=== PATIENT | female | born 1975 ===

== ENCOUNTER 2020-08-12 08:02 | Outpatient (REF) | payer MEDICAID, SELFPAY ==
[2020-08-12 16:05] LABS: CT PCR NOT DETECTED (Not Detect.); NG PCR NOT DETECTED (Not Detect.)
[2020-08-13 11:16] LABS: BV Int Neg Control Negative (Negative); BV Int Pos Control Positive (Positive)
[2020-08-19 18:17] LABS: HPV mRNA E6/E7 rflx Not Detected (Not Detected)
== END 2020-08-12 08:03 | disposition home or self-care (01) ==
LOC: HO.LAB 08:02
PROVIDERS: Visit Provider Advanced Practice Midwife
DX: Z01.419 Encounter for gynecological examination (general) (routine) without abnormal findings (principal); Z11.3 Encounter for screening for infections with a predominantly sexual mode of transmission; N39.41 Urge incontinence; T83.32XA Displacement of intrauterine contraceptive device, initial encounter; Z20.2 Contact with and (suspected) exposure to infections with a predominantly sexual mode of transmission; E66.9 Obesity, unspecified; L73.9 Follicular disorder, unspecified; Z87.42 Personal history of other diseases of the female genital tract
CPT/HCPCS: 87086; 87480; 87491; 87510; 87591; 87624; 87625; 87660; 88142

== ENCOUNTER 2020-10-12 16:12 | Outpatient (REF) | payer MEDICAID, SELFPAY | END 2020-10-12 16:13 | disposition home or self-care (01) | LOC: HO.LAB 16:12 | PROVIDERS: Visit Provider Internal Medicine | DX: Z20.828 Contact with and (suspected) exposure to other viral communicable diseases (principal) | CPT/HCPCS: C9803; U0003 ==

== ENCOUNTER 2021-01-14 16:00 | Outpatient (REF) | payer MEDICAID, SELFPAY ==
--- NOTE | ~2021-01-14 | US_ITS ---
EXAMINATION: US PELVIC COMPLETE US TRANSVAGINAL CLINICAL INFORMATION: Displaced IUD. COMPARISON: None TECHNIQUE: Transabdominal and transvaginal ultrasound of the pelvis was performed. FINDINGS: The uterus is anteverted and anteflexed measuring 9.0 cm in length, 4.4 cm in AP and 4.7 cm in transverse dimension. Endometrial thickness is 0.5 cm. The uterus is homogeneous echotexture without focal lesion. An IUD is in the correct position within the endometrial canal. There are small nabothian cysts seen in the cervix. The right ovary measures 2.5 x 2.0 x 2.0 cm and volume 5.2 mL. It appears unremarkable. Left ovary measures 3.9 x 1.6 x 2.9 cm and volume 9.5 mL. It appears unremarkable. There is no free fluid in the cul-de-sac. US/US transvaginal IMPRESSION: IUD is in correct position within the endometrial canal. The ovaries are unremarkable. Small nabothian cysts are seen in the cervix.
--- NOTE | ~2021-01-14 | US_ITS ---
EXAMINATION: US PELVIC COMPLETE US TRANSVAGINAL CLINICAL INFORMATION: Displaced IUD. COMPARISON: None TECHNIQUE: Transabdominal and transvaginal ultrasound of the pelvis was performed. FINDINGS: The uterus is anteverted and anteflexed measuring 9.0 cm in length, 4.4 cm in AP and 4.7 cm in transverse dimension. Endometrial thickness is 0.5 cm. The uterus is homogeneous echotexture without focal lesion. An IUD is in the correct position within the endometrial canal. There are small nabothian cysts seen in the cervix. The right ovary measures 2.5 x 2.0 x 2.0 cm and volume 5.2 mL. It appears unremarkable. Left ovary measures 3.9 x 1.6 x 2.9 cm and volume 9.5 mL. It appears unremarkable. There is no free fluid in the cul-de-sac. US/US pelvic complete IMPRESSION: IUD is in correct position within the endometrial canal. The ovaries are unremarkable. Small nabothian cysts are seen in the cervix.
== END 2021-01-14 16:01 | disposition home or self-care (01) ==
LOC: HO.US 16:00
PROVIDERS: Visit Provider Advanced Practice Midwife
DX: T83.32XA Displacement of intrauterine contraceptive device, initial encounter (principal)
CPT/HCPCS: 76830; 76856

== ENCOUNTER 2021-06-30 13:05 | Outpatient (REF) | payer MEDICAID, SELFPAY ==
[2021-07-01 02:04] LABS: CT PCR NOT DETECTED (Not Detect.); NG PCR NOT DETECTED (Not Detect.)
[2021-07-01 10:10] LABS: BV Int Neg Control Negative (Negative); BV Int Pos Control Positive (Positive)
[2021-07-07 22:03] LABS: HPV mRNA E6/E7 rflx Not Detected (Not Detected)
== END 2021-06-30 13:06 | disposition home or self-care (01) ==
LOC: HO.LAB 13:05
PROVIDERS: Visit Provider Advanced Practice Midwife
DX: Z01.411 Encounter for gynecological examination (general) (routine) with abnormal findings (principal); Z11.51 Encounter for screening for human papillomavirus (HPV); N39.41 Urge incontinence; N88.2 Stricture and stenosis of cervix uteri; E66.9 Obesity, unspecified; Z68.34 Body mass index [BMI] 34.0-34.9, adult; Z87.42 Personal history of other diseases of the female genital tract
CPT/HCPCS: 87480; 87491; 87510; 87591; 87624; 87660; 88142

== ENCOUNTER 2021-10-22 21:37 | Emergency (ER) | payer MEDICAID, SELFPAY ==
[2021-10-22 21:59] VITALS: BP 152/92; PULSE 83; RESP 16; TEMP 36.6; O2SAT 96; BMI 34.4
[2021-10-23 03:00] VITALS: BP 169/98; PULSE 85; RESP 17; TEMP 37.2; O2SAT 100
--- NOTE | 2021-10-23 03:56 | ED_ITS ---
HPI - General Adult General Chief complaint: General Medical Stated complaint: Vaginal cyst Time Seen by Provider: 10/23/21 03:35 Source: patient Mode of arrival: ambulatory History of Present Illness HPI narrative: 46-year-old female presents with complaints of ?a swollen area near her vaginal opening? that has been increasing in size and pain for 3 days. She denies any associated fever, chills, nausea, vomiting. Related Data Home Medications Medication Instructions Recorded Confirmed levonorgestrel 20 mcg/24 hours (7 INTRAUTERINE 08/12/20 06/30/21 yrs) 52 mg intrauterine device (Mirena) metformin 500 mg tablet,extended 1,000 mg PO DAILY tab 08/12/20 06/30/21 release 24hr Previous Rx's Medication Instructions Recorded metronidazole 0.75 % vaginal gel 1 appful VAGINAL BEDTIME 5 Days 07/02/21 (Metrogel Vaginal) #70 g Allergies Allergy/AdvReac Type Severity Reaction Status Date / Time No Known Allergies Allergy Unknown Verified 06/30/21 13:18 Review of Systems Review of Systems: Pertinent positives and negatives as stated in HPI 10 point review of systems is otherwise negative. PMFSH Past Medical History Source: nursing notes reviewed Medical History Depression Diabetes mellitus History of abnormal cervical Pap smear Obesity (BMI 30-39.9) Urge incontinence Surgical History History of loop electrical excision procedure (LEEP) Family History Family History Mother HIV (human immunodeficiency virus infection) Maternal Grandmother Diabetes mellitus Social History Social History Alcohol intake: never Advance Directives: No Advance Directives Information Provided: No Patient : No Gender identity: Female Physical Exam Vital Signs: Vital Signs: Last Vital Signs Temp 98.9 F 10/23/21 03:00 Pulse 85 10/23/21 03:00 Resp 17 10/23/21 03:00 BP 169/98 H 10/23/21 03:00 Pulse Ox 100 10/23/21 03:00 BMI result Body Mass Index 34.4 VITAL SIGNS: Reviewed. GENERAL: Well developed, well nourished, in no acute distress. HEAD: Normocephalic/atraumatic EYES: PERRLA, EOMI LUNGS: Normal breath sounds. No adventitious sounds or accessory muscle use. SpO2<100> CARDIOVASCULAR: Regular rate and rhythm without noted murmurs ABDOMEN: Soft, non-tender, non-distended with bowel sounds. : Noted swelling and fluctuance at left Bartholin cyst NEUROLOGIC: Alert and oriented x 4. Strength and sensation to light touch were grossly intact x 4. Course Course Course Narrative: 46-year-old female with history and clinical presentation consistent with Bartholin's cyst, underwent incision and drainage with placement of Zheng ring and instructions to continue with Sitz baths until follow-up with her primary care provider. Procedures Abscess I/D Site: bartholin's gland Side (if applicable): left Local Anesthetic: lidocaine 2% Amount of anesthesia used (mL): 1 Technique: incised with blade Amount of fluid expressed (mL): 30 Sent for culture/gram staining?: No Irrigation: Yes Packing used?: Word catheter (Zheng ring) Complications: pain Discharge Plan Discharge Clinical Impression: Bartholin cyst Patient Disposition: Home, Self-Care Instructions: Bartholin Cyst (ED), Sitz Bath (DC) Additional Instructions: 1. Perform Sitz baths at least twice daily, when you do this rotate the ring back and forth. You should continue to do this until you follow-up with your primary care provider or experimental technician. 2. Follow-up with your primary care provider or experimental technician in the next 2-3 days. Return to the ER for worsening symptoms. Prescriptions: No Action metronidazole [Metrogel Vaginal] 0.75 % gel 1 appful vaginal BEDTIME 5 Days Qty: 70 RF: 0 Mirena 20 mcg/24 hours (5 yrs) 52 mg intrauterine device intrauterine RF: 0 metformin 500 mg tablet extended release 24hr 1,000 mg PO DAILY RF: 0 Referrals: Wil Palmer MD [Primary Care Provider] - 2 days (Had Zheng ring placed for left Bartholin cyst, will need to have removed.)
[2021-10-23] MEDS: Lidocaine HCl 2 % 20 ML VIAL 10 ML SUBCUT (04:29)
== END 2021-10-23 04:49 | disposition home or self-care (01) ==
PROVIDERS: Emergency Provider Student in an Organized Health Care Education/Training Program; PCP Internal Medicine
DX: N75.0 Cyst of Bartholin's gland (principal); E11.9 Type 2 diabetes mellitus without complications
CPT/HCPCS: 56420; 99283; 99284

== ENCOUNTER → 2021-11-08 12:52 | Outpatient (BNVA) | payer MEDICAID, SELFPAY | PROVIDERS: PCP Internal Medicine; Visit Provider Obstetrics & Gynecology | DX: N75.0 Cyst of Bartholin's gland (principal) | CPT/HCPCS: 99212 ==

== ENCOUNTER 2021-11-11 13:03 | Outpatient (REF) | payer MEDICAID, SELFPAY ==
--- NOTE | ~2021-11-11 | MM_ITS ---
EXAMINATION: MM SCREENING DIGITAL BREAST TOMOSYNTHESIS, BILATERAL CLINICAL INFORMATION: Screening. Asymptomatic. The lifetime risk of breast cancer based on the Tyrer-Cuzick Model is 5.4%. COMPARISON: Mammography: May 30, 2019 and studies dating back to August 07, 2013 TECHNIQUE: Digital breast tomosynthesis is performed in both the craniocaudal and mediolateral oblique views along with computer-aided detection (CAD). Synthesized 2D images are generated from the tomosynthesis. FINDINGS: There are scattered areas of fibroglandular density (ACR BI-RADS breast composition Category b). There are no significant masses, abnormal calcifications, or other abnormalities. MM/MM tomosynthesis screening BI IMPRESSION: There are no significant changes from prior study. ASSESSMENT: BI-RADS 1: Negative RECOMMENDATION: Routine annual mammography screening. This patient's information was entered into a reminder system with a target due date for their next mammogram.
== END 2021-11-11 13:04 | disposition home or self-care (01) ==
LOC: HO.MAMMO 13:03
PROVIDERS: PCP Internal Medicine; Visit Provider Internal Medicine
DX: Z12.31 Encounter for screening mammogram for malignant neoplasm of breast (principal)
CPT/HCPCS: 77063; 77067

== ENCOUNTER → 2021-11-24 14:38 | Outpatient (BNVA) | payer MEDICAID, SELFPAY | PROVIDERS: PCP Internal Medicine; Visit Provider Obstetrics & Gynecology ==

== ENCOUNTER 2022-12-19 14:01 | Outpatient (REF) | payer MEDICAID, SELFPAY ==
--- NOTE | ~2022-12-19 | MM_ITS ---
EXAMINATION: MM SCREENING DIGITAL BREAST TOMOSYNTHESIS, BILATERAL CLINICAL INFORMATION: Screening. Asymptomatic. The lifetime risk of breast cancer based on the Tyrer-Cuzick Model is 8%. COMPARISON: Mammography: 11/11/2021, 05/30/2019, 10/18/2017; outside mammography 08/07/2013 ([facility]). TECHNIQUE: Digital breast tomosynthesis is performed in both the craniocaudal and mediolateral oblique views along with computer-aided detection (CAD). Synthesized 2D images are generated from the tomosynthesis. Additional exaggerated right CC view is provided. FINDINGS: There are scattered areas of fibroglandular density (ACR BI-RADS breast composition Category b). There is parenchymal asymmetry with increased attenuation posterior outer left breast, suspect summation artifact. There is admixture of normal fibroglandular and fatty attenuation in this area on MLO view. Patient will be recalled to exclude an occult developing density. The remainder of the bilateral breasts is appears similar to prior studies. No significant mass or architectural abnormality. No abnormal calcifications. The axilla are unremarkable. Skin contours are smooth. MM/MM tomosynthesis screening BI IMPRESSION: Left: -Increased parenchymal asymmetry posterior outer left breast, possibly summation artifact. Right: -No mammographic evidence of malignancy. ASSESSMENT: BI-RADS 0: Incomplete - Need Additional Imaging Evaluation RECOMMENDATION: 1. Additional views left breast (spot exaggerated CC, rolled CC). 2. Targeted ultrasound if warranted after review of the additional views. 3. Radiology department staff will contact the patient for additional imaging. This patient's information was entered into a reminder system with a target due date for their next mammogram.
== END 2022-12-19 14:02 | disposition home or self-care (01) ==
LOC: HO.MAMMO 14:01
PROVIDERS: PCP Internal Medicine; Visit Provider Internal Medicine
DX: Z12.31 Encounter for screening mammogram for malignant neoplasm of breast (principal)
CPT/HCPCS: 77063; 77067

== ENCOUNTER 2023-01-19 14:47 | Outpatient (REF) | payer MEDICAID, SELFPAY ==
--- NOTE | ~2023-01-19 | MM_ITS ---
EXAMINATION: MM DIAGNOSTIC DIGITAL BREAST TOMOSYNTHESIS, LEFT CLINICAL INFORMATION: Recall from screening for question increased parenchymal asymmetry posterior outer left breast, possibly summation artifact. TC score 8%. COMPARISON: Prior mammography exams, most recent 12/19/2022. TECHNIQUE: Digital breast tomosynthesis is performed. 2D images are generated from the tomosynthesis. The following views are obtained: Spot exaggerated CC, rolled CC x2. FINDINGS: There are scattered areas of fibroglandular density (ACR BI-RADS breast composition Category b). The additional views show splaying of the fibroglandular tissue without underlying mass, architectural abnormality, or developing density from prior studies. Results are discussed with the patient at time of visit. MM/MM tomosynthesis added views L IMPRESSION: Additional views show no significant changes from prior exams. ASSESSMENT: BI-RADS 2: Benign RECOMMENDATION: Routine annual mammography screening. This patient's information was entered into a reminder system with a target due date for their next mammogram.
== END 2023-01-19 14:48 | disposition home or self-care (01) ==
LOC: HO.MAMMO 14:47
PROVIDERS: PCP Internal Medicine; Visit Provider Internal Medicine
DX: N64.89 Other specified disorders of breast (principal)
CPT/HCPCS: 77061; 77065

== ENCOUNTER 2023-03-07 14:33 | Outpatient (REF) | payer MEDICAID, SELFPAY ==
[2023-03-08 05:53] LABS: CT PCR NOT DETECTED (Not Detect.); NG PCR NOT DETECTED (Not Detect.)
[2023-03-08 12:05] LABS: BV Int Neg Control Negative (Negative); BV Int Pos Control Positive (Positive)
[2023-03-10 06:43] LABS: HPV mRNA E6/E7 rflx Not Detected (Not Detected)
== END 2023-03-07 14:34 | disposition home or self-care (01) ==
LOC: HO.LNP 14:33
PROVIDERS: PCP Internal Medicine; Visit Provider Advanced Practice Midwife
DX: Z01.419 Encounter for gynecological examination (general) (routine) without abnormal findings (principal); T83.32XA Displacement of intrauterine contraceptive device, initial encounter; E66.9 Obesity, unspecified; N88.2 Stricture and stenosis of cervix uteri; Z87.42 Personal history of other diseases of the female genital tract; Z20.2 Contact with and (suspected) exposure to infections with a predominantly sexual mode of transmission
CPT/HCPCS: 0353U; 87480; 87510; 87624; 87660; 88142

== ENCOUNTER 2023-05-01 12:06 | Outpatient (REF) | payer MEDICAID, SELFPAY ==
[2023-05-01 15:04] LABS: Estimated Average Glucose 94 mg/dL; Hemoglobin A1c % 4.9 %
[2023-05-01 15:36] LABS: Creatinine Urine 317.61 mg/dL; Microalbum/Creatinine Ratio Ur 13.2 ug/mg cr
[2023-05-04 19:54] LABS: HCV Log PCR <1.18 NOT DETECTED Log IU/mL (NOT DETECTED); HepC Viral Load <15 NOT DETECTED IU/mL (NOT DETECTED)
== END 2023-05-01 12:07 | disposition home or self-care (01) ==
LOC: HO.CHCLDS 12:06
PROVIDERS: Visit Provider Registered Nurse
DX: E11.65 Type 2 diabetes mellitus with hyperglycemia (principal)
CPT/HCPCS: 36415; 82043; 83036; 87522

== ENCOUNTER 2023-05-15 14:08 | Outpatient (AMB) | payer MEDICAID, SELFPAY ==
--- NOTE | 2023-05-15 14:13 | MHC.OFFVIS ---
Intake Vital Signs 05/15/23 14:19 Height 5 ft 7 in Weight 163 lb BMI 25.5 BP 112/74 Intake Visit Reasons: IUD Replacement per Keely Lockstitch Lining Maker Required: No Information Interpreted: non-clinical & clinical Ophthalmology Surgical Technician: Ophthalmology Surgical Technician Present (Ella WAREKadeem) Accompanied by: Self / Same As Patient Allergies No Known Allergies Allergy (Unknown, Verified 05/15/23 14:21) Is last menstrual period known: No HPI HPI Comments History of Present Illness Details Presenting for IUD removal and insertion. Referred from Keely Balderrama CNM because IUD string was not seen on pelvic exam. Patient states that she has an IUD insertion more than 10 years ago, no records available [facility] Medical History Depression Diabetes mellitus History of abnormal cervical Pap smear Obesity (BMI 30-39.9) Urge incontinence Surgical History H/O gastric bypass History of loop electrical excision procedure (LEEP) Family History Mother HIV (human immunodeficiency virus infection) Maternal Grandmother Diabetes mellitus Social History Alcohol intake: never Gender identity: Female Female Reproductive History Menstrual Age of Menarche: 15 Review of Systems Const All systems reviewed & are unremarkable except as noted in HPI and below Physical Exam General: Yes no CVA tenderness External Female Exam: normal external appearance and normal appearance of the urethra Speculum Exam - Vagina: normal appearance of the vagina, normal palpation, no lesions and no masses Speculum Exam - Cervix: normal appearance of the cervix, normal palpation, no lesions, no masses, nontender and Other cervical findings present (IUD string not seen) Bimanual exam- vagina & uterus: normal bimanual exam, normal palpation, uterine size normal, normal palpation, uterine shape normal, No Cervical tenderness present and non-tender Bimanual Exam- Adnexa, other: normal adnexae Back/Spine/Pelvis Back: no CVA tenderness Assessment & Plan Assessment & Plan (1) IUD strings lost: Code(s): T83.32XA - Displacement of intrauterine contraceptive device, initial encounter Plan: Urine test in the office was negative. GC/chlamydia taken. Attempted to remove IUD, was unsuccessful because IUD string was not seen Peter older pelvic ultrasound to confirm that the IUD is in utero, then schedule hysteroscopic IUD removal and Mirena IUD insertion. All questions answered, the patient verbalized understanding Orders: Orders US pelvic and transvaginal Today T83.32XA - Displacement of intrauterine contraceptive device, initial encounter Coding Level of Care Code Est Pt Level 3 (79532) Diagnoses IUD strings lost T83.32XA
[2023-05-15 14:19] VITALS: BP 112/74; BMI 25.5
== END 2023-05-15 14:52 | disposition home or self-care (01) ==
LOC: HO.HWS 14:08
PROVIDERS: PCP Internal Medicine; Visit Provider Obstetrics & Gynecology
DX: T83.32XA Displacement of intrauterine contraceptive device, initial encounter (principal)
CPT/HCPCS: 99213

== ENCOUNTER 2023-05-15 14:08 | Outpatient (REF) | payer MEDICAID, SELFPAY ==
[2023-05-16 05:40] LABS: CT PCR NOT DETECTED (Not Detect.); NG PCR NOT DETECTED (Not Detect.)
== END 2023-05-15 14:09 | disposition home or self-care (01) ==
LOC: HO.LNP 14:08
PROVIDERS: PCP Internal Medicine; Visit Provider Obstetrics & Gynecology
DX: T83.32XA Displacement of intrauterine contraceptive device, initial encounter (principal)
CPT/HCPCS: 0353U; 99212

== ENCOUNTER 2023-05-19 12:49 | Outpatient (REF) | payer MEDICAID, SELFPAY ==
--- NOTE | ~2023-05-19 | US_ITS ---
EXAMINATION: US PELVIS COMPLETE US PELVIS ENDOVAGINAL CLINICAL INFORMATION: Intrauterine device COMPARISON: Ultrasound pelvis from 01/14/2021 TECHNIQUE: Transabdominal and transvaginal images of the pelvis were obtained. FINDINGS: UTERUS: Anteverted. Normal size and contour, measuring 9.2 x 4.5 x 6.0 cm (cervix to fundus x AP x transverse). IUD in place. Nabothian cysts are noted. RIGHT OVARY: Normal size and echogenicity measuring 3.0 x 1.5 x 2.8 cm, volume 6.6 mL. Simple appearing cystic focus in the right ovary measuring 1.8 x 1.0 x 1.5 cm, which does not require follow-up. Prominence of the paraovarian vasculature. LEFT OVARY: Normal size and echogenicity measuring 2.8 x 1.6 x 1.7 cm. Prominence of the paraovarian vasculature. FREE FLUID: No pelvic free fluid. US/US pelvic and transvaginal IMPRESSION: 1. IUD in place. 2. Simple appearing cystic focus in the right ovary measuring 1.8 x 1.0 x 1.5 cm, which does not require follow-up. 3. Prominence of the bilateral paraovarian vasculature, nonspecific though may reflect elements of pelvic congestion syndrome in the appropriate clinical setting. 4. Nabothian cysts are noted.
== END 2023-05-19 12:50 | disposition home or self-care (01) ==
LOC: HO.US 12:49
PROVIDERS: PCP Internal Medicine; Visit Provider Obstetrics & Gynecology
DX: T83.32XA Displacement of intrauterine contraceptive device, initial encounter (principal)
CPT/HCPCS: 76830; 76856

== ENCOUNTER 2023-06-05 13:47 | Outpatient (REF) | payer MEDICAID, SELFPAY ==
[2023-06-05 18:52] LABS: CT PCR NOT DETECTED (Not Detect.); NG PCR NOT DETECTED (Not Detect.)
[2023-06-06 10:06] LABS: BV Int Neg Control Negative (Negative); BV Int Pos Control Positive (Positive)
== END 2023-06-05 13:48 | disposition home or self-care (01) ==
LOC: HO.LNP 13:47
PROVIDERS: PCP Internal Medicine; Visit Provider Obstetrics & Gynecology
DX: T83.32XD Displacement of intrauterine contraceptive device, subsequent encounter (principal); B37.31 Acute candidiasis of vulva and vagina
CPT/HCPCS: 0353U; 87480; 87510; 87660; 99212

== ENCOUNTER 2023-06-05 13:47 | Outpatient (AMB) | payer MEDICAID, SELFPAY ==
[2023-06-05 13:51] VITALS: BP 120/66; BMI 25.5
--- NOTE | 2023-06-05 13:51 | A.OFFVIS_ITS ---
Intake Vital Signs 06/05/23 13:51 Height 5 ft 7 in Weight 163 lb BMI 25.5 BP 120/66 Intake Visit Reasons: ultrasound follow up/pre op hyst Youth Specialist Required: No Information Interpreted: non-clinical & clinical Food Safety Scientist: Food Safety Scientist Present (Ella) Allergies No Known Allergies Allergy (Unknown, Verified 06/05/23 13:54) Is last menstrual period known: No (Mirena) Post menopausal: No Patient : No Do you need a note to return to daycare/school/sports/work: Yes (for surgery on monday) HPI HPI Comments History of Present Illness Details Presenting for ultrasound follow-up . Complaining of vulvovaginal itching few days duration. Pelvic ultrasound done 2 weeks ago showed the following: IMPRESSION: 1.? IUD in place. 2.? Simple appearing cystic focus in the right ovary measuring 1.8 x 1.0 x 1.5 cm, which does not require follow-up. 3.? Prominence of the bilateral paraovarian vasculature, nonspecific though may reflect elements of pelvic congestion syndrome in the appropriate clinical setting. 4.? Nabothian cysts are noted. [facility] Medical History Depression Diabetes mellitus History of abnormal cervical Pap smear Obesity (BMI 30-39.9) Urge incontinence Surgical History H/O gastric bypass History of loop electrical excision procedure (LEEP) Family History Mother HIV (human immunodeficiency virus infection) Maternal Grandmother Diabetes mellitus Social History Alcohol intake: never Gender identity: Female Female Reproductive History Menstrual Age of Menarche: 15 Date of last menstrual period: 08/13/20 control method: progestin IUCD Total pregnancies: 2 Full term: 2 Date of last pap smear: 03/08/23 (negative) Review of Systems Card Reports as per HPI and Reports no additional complaints Resp Reports as per HPI and Reports no additional complaints GI Reports as per HPI and Reports no additional complaints Reports as per HPI Physical Exam Vital Signs: Last Vital Signs BP 120/66 06/05/23 13:51 BMI result Body Mass Index 25.5 Const General: cooperative, healthy appearing and comfortable Chest Chest palpation & inspection: normal inspection of the chest and normal palpation of entire chest wall Breast/axilla inspection: normal inspection of the breasts and normal inspection of the axillae Breast/axilla palpation: normal palpation of the breasts, normal palpation of the axillae and no axillary lymphadenopathy Resp Effort & Inspection: normal respiratory effort Auscultation: clear to auscultation bilaterally Percussion: percussion normal Cardio Palpation: normal PMI Rate: regular rate Rhythm: regular rhythm Heart sounds: no murmurs and no rubs Peripheral pulses: Peripheral pulses 2+ throughout GI Inspection: Yes normal to inspection Palpation (GI): Soft to palpation, nontender, no guarding, not rigid and No hepatosplenomegaly present Percussion: Yes normal to percussion Auscultation: normal bowel sounds Rectal Exam - Female: deferred Assessment & Plan Assessment & Plan (1) IUD strings lost: Code(s): T83.32XA - Displacement of intrauterine contraceptive device, initial encounter Plan: Discussed with the patient the finding on ultrasound showing a IUD in utero recommended hysteroscopic IUD removal. Will proceed with hysteroscopic IUD removal and IUD insertion under anesthesia. Discussed with the patient the procedure , all benefits and risks including but not limited to inability to complete the procedure , bleeding, infection, possible need for blood transfusion with all its risk ( HIV,syphilis, Hepatitis, anaphylaxis shock, others..), injury to bladder, rectum, possible need for laparoscopy/laparotomy or hysterectomy. In addition, the following possible complications were discussed with the patient: Intrauterine , Ectopic , Sepsis, Pelvic Infection, Irregular Bleeding and Amenorrhea, Perforation, Expulsion, Ovarian Cysts, Breast Cancer, The following adverse effects were discussed with the patient: alteration of menstrual bleeding pattern, including: unscheduled uterine bleeding decreased uterine bleeding increased scheduled uterine bleeding female genital tract bleeding ,amenorrhea , genital discharge , vulvovaginitis , breast pain , benign ovarian cyst and associated complications , dysmenorrhea , Gastrointestinal disorders abdominal/pelvic pain, headache/migraine , back pain , acne , depression Alternative options were discussed with the patient including but not limited: control pills, patch, NuvaRing, Depo-medroxyprogesterone acetate, Nexplanon, copper IUD, sterilization, vasectomy, others The patient verbalized understanding and signed the consent. Instructions given the patient to schedule a 2 week postoperative appointment (2) Candidal vulvovaginitis: Code(s): B37.31 - Acute candidiasis of vulva and vagina Plan: GC/CT, Bacterial Vaginosis panel taken, Terazol 0.8% q.h.s. for 3 days was sent to the patient's pharmacy. The patient was instructed to call if symptoms don't improve in 48 hours. Orders: Orders Bacterial Vaginosis Panel Today Z20.2 - Contact with and (suspected) exposure to infections with a predominantly sexual mode of transmission CT NG by PCR Today Z20.2 - Contact with and (suspected) exposure to infections with a predominantly sexual mode of transmission Medications: New terconazole 0.8% 1 appful vaginal BEDTIME 3 days 20 grams 0RF Coding Level of Care Code Est Pt Level 3 (33953) Diagnoses IUD strings lost T83.32XA Candidal vulvovaginitis B37.31
== END 2023-06-05 14:56 | disposition home or self-care (01) ==
LOC: HO.HWS 13:47
PROVIDERS: PCP Internal Medicine; Visit Provider Obstetrics & Gynecology
DX: T83.32XA Displacement of intrauterine contraceptive device, initial encounter (principal); B37.31 Acute candidiasis of vulva and vagina
CPT/HCPCS: 99213

== ENCOUNTER → 2023-06-23 11:01 | Outpatient (BNV) | payer MEDICAID, SELFPAY | PROVIDERS: PCP Internal Medicine; Visit Provider Obstetrics & Gynecology | DX: T83.32XA Displacement of intrauterine contraceptive device, initial encounter (principal); Z30.430 Encounter for insertion of intrauterine contraceptive device | CPT/HCPCS: 58300; 58562 ==

== ENCOUNTER → 2023-06-23 11:01 | Outpatient (BNV) | payer MEDICAID, SELFPAY | PROVIDERS: PCP Internal Medicine; Visit Provider Internal Medicine Cardiovascular Disease | DX: I49.5 Sick sinus syndrome (principal) | CPT/HCPCS: 99222; 99233 ==

== ENCOUNTER 2023-06-23 16:00 | Observation (INO) | payer MEDICAID, SELFPAY ==
[2023-06-21 10:47] VITALS: BMI 25.5
--- NOTE | 2023-06-22 08:55 | HO.ANESPROP2 ---
Documented by User: Chyna Castellanos NP 06/22/23 08:56 HPI - Anesthesia Eval Consult details Narrative: 48yo F for Hysteroscopy IUD device Removal and insertion PMFSH Active Problems Active Problems: All Active Problems (Updated 06/05/23 @ 14:14 by Tani Cordova MD) Candidal vulvovaginitis (Acute) Presence of 52 mg levonorgestrel-releasing intrauterine device (IUD) (Acute) Well woman exam with routine gynecological exam (Acute) Bartholin's gland cyst (Acute) Stenosis of cervix (Acute) Folliculitis (Acute) Obesity (BMI 30-39.9) (Acute) Urge incontinence (Acute) History of abnormal cervical Pap smear (Acute) Well woman exam with routine gynecological exam (Acute) Potential exposure to STD (Acute) IUD strings lost (Acute) Past Medical History Medical History (Updated 06/23/23 @ 11:13 by Jeana Francois RN) Obesity (BMI 30-39.9) History of abnormal cervical Pap smear Urge incontinence Depression Diabetes mellitus Family History Family History Mother HIV (human immunodeficiency virus infection) Maternal Grandmother Diabetes mellitus Surgical History Surgical History (Updated 06/23/23 @ 11:13 by Jeana Francois RN) H/O gastric bypass History of loop electrical excision procedure (LEEP) Social History Social History Alcohol intake: never Patient Tobacco Use Status: Never used Tobacco Use of substances other than those prescribed or required for medical reasons: Yes Substance Use Frequency: Daily Are you DNR?: No Advance Directives: No Advance Directives Information Provided: Yes Gender identity: Female Meds Allergies Allergy/AdvReac Type Severity Reaction Status Date / Time No Known Allergies Allergy Unknown Verified 06/23/23 11:14 Home Medications Medication Instructions Recorded Confirmed Last Taken Type levonorgestrel 21 mcg/24 hours (8 intrauterine 08/12/20 03/07/23 Unknown History yrs) 52 mg intrauterine device (Mirena) Exam Exam Date and Time: June 22, 2023 0855 Height,Weight and Vital Signs: Height 5 ft 7 in Weight 73.936 kg Assessment and Plan Assessment Anesthesia Assessment: Chart Reviewed Documented by User: Sharifa Monsivais MD 06/23/23 12:08 PMF Past Medical History Medical History (Updated 06/23/23 @ 11:13 by Jeana Francois RN) Obesity (BMI 30-39.9) History of abnormal cervical Pap smear Urge incontinence Depression Diabetes mellitus Family History Family History Mother HIV (human immunodeficiency virus infection) Maternal Grandmother Diabetes mellitus Family history of problems with anesthesia: No Surgical History Surgical History (Updated 06/23/23 @ 11:13 by Jeana Francois RN) H/O gastric bypass History of loop electrical excision procedure (LEEP) History of Problems with Anesthesia: No Social History Social History Alcohol intake: never Patient Tobacco Use Status: Never used Tobacco Use of substances other than those prescribed or required for medical reasons: Yes Substance Use Frequency: Daily Are you DNR?: No Advance Directives: No Advance Directives Information Provided: Yes Gender identity: Female Meds Allergies Allergy/AdvReac Type Severity Reaction Status Date / Time No Known Allergies Allergy Unknown Verified 06/23/23 11:14 Home Medications Medication Instructions Recorded Confirmed Last Taken Type levonorgestrel 21 mcg/24 hours (8 intrauterine 08/12/20 03/07/23 Unknown History yrs) 52 mg intrauterine device (Mirena) Exam Airway Mallampati Class: II TM Dist: >3cm Neck ROM: Full Heart: rrr Lungs: cta Assessment and Plan Assessment Anesthesia Assessment: Anesthesia Plan Discussed and Smoking Cess. Discussed Final Anesthetic Review Family History of Problems with Anesthesia: No History of Problems with Anesthesia: No NPO: Yes ASA Class: II Final Preanesthetic Review: No Changes in Pt Med Stat, Meds/Allgs Chart Reviewed, Consent Obtained/Reviewed and Anes Risks/Benef Reviewed Patient Risk: Intermediate Procedure Risk: Low Anesthetic Plan Anesthetic Plan: GA Disposition: Standard PACU (marked sinus bradycardia noted, pot use rhrice ot more times daily )
[2023-06-23] VITALS (15 sets, daily range): BP systolic 118–151; BP diastolic 50–85; PULSE 40–74; RESP 15–18; TEMP 36.2–37.1; O2SAT 95–100; BMI 25.5
--- NOTE | 2023-06-23 | ECG_ITS ---
Test Reason : MD order Blood Pressure : / mmHG Vent. Rate : 063 BPM Atrial Rate : 063 BPM P-R Int : 204 ms QRS Dur : 110 ms QT Int : 468 ms P-R-T Axes : 093 010 034 degrees QTc Int : 478 ms Sinus rhythm with Premature atrial complexes with Aberrant conduction Possible Left atrial enlargement Nonspecific ST and T wave abnormality Prolonged QT Abnormal ECG When compared with ECG of 23-JUN-2023 11:39, Aberrant conduction is now Present Sinus rhythm is no longer with 2nd degree A-V block QT has lengthened Referred By: Robel Bryan Electronically Signed By:
[2023-06-23 11:24] LABS: UPreg QC Valid YES; Urine Pregnancy NEGATIVE (NEGATIVE)
--- NOTE | 2023-06-23 11:30 | ECG_ITS ---
Test Reason : Irregular heart beat Blood Pressure : / mmHG Vent. Rate : 043 BPM Atrial Rate : 043 BPM P-R Int : 174 ms QRS Dur : 086 ms QT Int : 500 ms P-R-T Axes : 075 010 033 degrees QTc Int : 422 ms Sinus rhythm with 2nd degree A-V block Nonspecific T wave abnormality Abnormal ECG No previous ECGs available Referred By: Gaby Evans Electronically Signed By:MORENA MCDONOUGH
--- NOTE | 2023-06-23 11:35 | PC.NURSE ---
pt heart rate dropping into 30's occasionally, mostly in 40's. ryhtym strip showing dropped p waves. anesthesia made aware and ekg ordered
--- NOTE | 2023-06-23 11:56 | MHC.SHP ---
Pre-Procedural Eval Section A Date of Service: 06/23/23 The patient is an INPATIENT: No Changes since office visit: No Cold of Flu in the past 2 weeks, No New Medical Problems, No Changes in Medication and No Patient answered all questions The History & Physical has been completed within 30 days and I have reviewed it.: Yes Section B Chief Complaint: Displacement of intrauterine contraceptive device, Allergies: Allergies Allergy/AdvReac Type Severity Reaction Status Date / Time No Known Allergies Allergy Unknown Verified 06/23/23 11:14 Plan Diagnosis/Plan: Unchanged I have reviewed the history and physical and performed a pertinent physical examination on my patient. No changes have occurred unless specified. Time Spent With Patient Time: Total time managing care of this patient today ____ minutes.
[2023-06-23] MEDS: Lactated Ringers 1,000 ML 100 ML IVCONT (12:22)
--- NOTE | 2023-06-23 12:23 | PC.NURSE ---
after ekg done and much discussion between several anesthesia mds and dr núñez, ok'd to proceed. no sx. pt doesn't feel palpitations, dizziness, chest pains or any other symptoms.
--- NOTE | 2023-06-23 12:50 | P.BOP_ITS ---
Brief Operative Note Date of Service: 08/28/20 Pre-op diagnosis: IUD complication, lost string Post-op diagnosis: same (IUD in utero) Procedure: Hysteroscopic IUD removal and Mirena IUD insertion Surgeon: Tani Cordova MD Anesthesia: local (Paracervical block) Was an Crm Campaign Manager used for this Procedure?: No Estimated blood loss (mL): 0 Pathology: other (None) Condition: stable Disposition: PACU
--- NOTE | 2023-06-23 12:51 | W.PM.OPN ---
Operative Note Operative Note Date of Service: 06/23/23 Narrative: Preop Diagnosis: IUD complication, lost string and requesting Mirena IUD insertion Operation: Diagnostic Hysteroscopic IUD removal and Mirena IUD insertion Post Op Diagnosis: same. IUD and string in utero QBL: Minimal Anesthesia: MAC Surgeon: Tani Cordova MD Bus And Sys Integration Senior Manager: None Complication: None Pathology: None Procedure: The patient was put in the dorsal lithotomy position, scrubbed, and draped in the usual manner. A sterile speculum was inserted in the patient's vagina. The anterior lip of the cervix was grasped with a single tooth tenaculum. The cervix was dilated up to 5 mm, then the scope was inserted in the patient's uterus. Inspection revealed IUD & its string in utero. A hysteroscopic grasper was introduced through the operative channel, the string grasped and IUD pulled out of the uterine cavity with no complications. A sound was advanced afterwards through the external and internal os until it reached the fundus of the uterus, the depth was 9 cm. The sound was then withdrawn. The IUD was loaded in a sterile manner and advanced into position. The string was visualized and cut to 3 cm. Tenaculum site hemostatic. All instruments removed from vagina. Patient tolerated the procedure well. NO complications were noted. At the end of the procedure, all instruments were taken out of the patient uterine and vaginal cavity. The single tooth tenaculum was removed and homeostasis was assured using pressure and months pessary. The patient tolerated the procedure well and was transferred to the PACU in a stable condition.
--- NOTE | 2023-06-23 14:45 | P.CONCA_ITS ---
History of Present Illness History of Present Illness Date of Service: 06/23/23 Requesting physician: Tani Cordova Consult reason: other (Bradycardia) Chief complaint: Displacement of intrauterine contraceptive device, Narrative: I was consulted to see Tamanna because of noted bradycardia preoperatively. 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 Patient in general good physical shape came as an outpatient for replacement of her IUD. Preoperative was noted to have bradycardia with normal sinus rhythm followed by a junctional escape beat. Patient has no symptoms during these times. Patient then underwent the procedure under paracervical block and mild sedation. Postprocedure remained to have similar rhythm with sinus bradycardia with escape junctional beats. Patient has remained hemodynamically stable and remained asymptomatic. Patient as outpatient has no exertional symptoms. She also denies any symptoms of lightheadedness or syncope. She has no symptoms of palpitations. Patient does not recall having any tick bites or history of Lyme disease. No recent lab work. Patient currently does not have sleep apnea. Review of Systems Review of Systems: Yes all other systems are reviewed and are negative PMF Past Medical History Medical History (Updated 06/23/23 @ 14:49 by Marv Vincent MD) Obesity (BMI 30-39.9) History of abnormal cervical Pap smear Urge incontinence Depression Diabetes mellitus Family History Family History Mother HIV (human immunodeficiency virus infection) Maternal Grandmother Diabetes mellitus Surgical History Surgical History (Updated 06/23/23 @ 11:13 by Jeana Francois RN) H/O gastric bypass History of loop electrical excision procedure (LEEP) Social History Social History Alcohol intake: never Patient Tobacco Use Status: Never used Tobacco Use of substances other than those prescribed or required for medical reasons: Yes Substance Use Frequency: Daily Are you DNR?: No Advance Directives: No Advance Directives Information Provided: Yes Gender identity: Female Meds Allergies Allergy/AdvReac Type Severity Reaction Status Date / Time No Known Allergies Allergy Unknown Verified 06/23/23 11:14 Active Medications: Current Medications Fentanyl (Fentanyl Citrate/Pf 100 Mcg/2 Ml Vial) 25 mcg IVPUSH Q5M PRN; Protocol PRN Reason: Pain, Moderate(Pain Scale 4-6) Lactated Ringer's (Lr) 1,000 mls @ 100 mls/hr IVCONT .Q10H [facility] Last Admin: 06/23/23 12:22 Dose: 100 mls/hr Ondansetron HCl (Ondansetron Hcl 4 Mg/2 Ml Vial) 4 mg IVPUSH ONCE PRN PRN Reason: Nausea and Vomiting Oxycodone HCl (Oxycodone Hcl Immed Release 5 Mg Tablet) 5 mg PO ONCE PRN PRN Reason: Pain, Severe (Pain Scale 7-10) Home Medications Medication Instructions Recorded Confirmed Last Taken Type levonorgestrel 21 mcg/24 hours (8 intrauterine 08/12/20 03/07/23 Unknown History yrs) 52 mg intrauterine device (Mirena) Physical Exam Vital Signs: Vital Signs: Last Vital Signs Temp 97.2 F 06/23/23 12:55 Pulse 61 06/23/23 14:05 Resp 16 06/23/23 14:05 BP 132/75 06/23/23 14:05 Pulse Ox 99 06/23/23 14:05 O2 Del Method Room Air 06/23/23 14:05 O2 Flow Rate 2 06/23/23 13:35 BMI result Body Mass Index 25.5 Const: General: cooperative, comfortable, no acute distress, alert and awake Nutritional Appearance: average body habitus Orientation/consciousness: patient oriented x3 Limitations: no limitations HEENT: Head: Yes normocephalic and Yes atraumatic Neck: Neck: Yes trachea midline, Yes supple and Yes no JVD Resp: Effort & Inspection: normal respiratory effort Auscultation: clear to auscultation bilaterally Cardio: Jugular venous distension: no JVD Palpation: normal PMI Rate: regular rate Rhythm: abnormal rhythm other (Occasional skipped beats) Heart sounds: S1 normal heart sound present, S2 normal heart sound present, no click, no gallops, no murmurs and no rubs GI: Auscultation: normal bowel sounds Skin: General skin exam: no rashes or lesions noted Neuro: General: patient oriented x3 and no focal motor deficits Extrem: General: Yes no clubbing, cyanosis or edema Objective Labs and Meds Lab results: Laboratory Results - last 24 hr 06/23/23 11:10 Urine Test NEGATIVE EKG shows normal sinus rhythm followed by junctional escape beat Assessment and Plan (1) Sinus node dysfunction: Status: Acute Patient intermittent escape junctional beat and also noted to have intermittent long sinus beats could suggest sinoatrial shahla Wenckebach. Overall findings are suggestive sinus node dysfunction which is highly unusual at her age group. She has no obvious outpatient clinical symptoms and no current symptoms with slow heart rate. At this time I would suggest her to be admitted for overnight observation. Will like to evaluate for Lyme disease as well as TSH for hypothyroidism. Also obtain routine lab work. Will watch her overnight and possibly pursue treadmill stress test although this might have to be done as outpatient. Is at concerning slowing of heart rate of pauses may require dual- chamber pacemaker. However would like not to [place] to her dual-chamber pacemaker at this point in time. This was discussed with the patient and she understands and agrees. Will continue to follow with you Time Spent With Patient Time: Total time managing care of this patient today ____ minutes. Procedures Date of Service Date of Service: 06/23/23
--- NOTE | 2023-06-23 16:17 | PM.IMHP ---
History of Present Illness Date of Service: 06/23/23 Attending physician on admission: Pat Chen Chief Complaint: Bradycardia Pt is a 48-year-old female with a PMH significant for?vct-eetkrpn-chnpimhjz diabetes type 2, s/p gastric bypass surgery 9 months ago, and depression who presents to the hospital for outpatient procedure in the OR to replace her IUD. During preop evaluation patient was found to have bradycardia ranging from 35-40 BPM with significant sinus arrhythmia. Patient underwent IUD replacement with cervical block and p.o. Versed. Pt states she had a syncopal episode in February of this year while at work. Patient was dizzy and when she awoke found herself on the floor. Has not had a repeat episode since then. However, patient has been experiencing occasional dizziness with bending over and straightening back up for the past 3-4 months. Otherwise patient has not had any acute medical complaints. Denies chest pain/pressure, palpitations. Denies lightheadedness no fever, chills, nausea, vomiting, abdominal pain. Denies shortness of breath. Of note, patient has lost 100 lb in the past 9 months since undergoing gastric bypass surgery. ? EKG from earlier today showed sinus bradycardia of 43 B p.m. with marked sinus arrhythmia. Cardiology was consulted and suggested checking labs and admitting patient to telemetry for overnight monitoring. Review of Systems Review of Systems: Patient largely asymptomatic Occasional dizziness with bending over and standing up x3 months Syncopal episode February 2023 while at work Otherwise has no acute medical complaints at this time Denies chest pain/pressure, palpitations No SOB Denies fever, chills, nausea, vomiting, abdominal pain [facility] Medical History Obesity (BMI 30-39.9) History of abnormal cervical Pap smear Urge incontinence Depression Diabetes mellitus Family History Mother HIV (human immunodeficiency virus infection) Maternal Grandmother Diabetes mellitus Surgical History H/O gastric bypass History of loop electrical excision procedure (LEEP) Social History Alcohol intake: never Patient Tobacco Use Status: Never used Tobacco Smoked in Last 30 Days: No Patient Interested in Nicotine Replacement: No Patient Given Instructions on How to Stop Smoking: No Second Hand Smoke Exposure: No Use of substances other than those prescribed or required for medical reasons: Yes Substance Use Frequency: Daily Are you DNR?: No Advance Directives: No Advance Directives Information Provided: Yes service: No Gender identity: Female Meds Allergies Allergy/AdvReac Type Severity Reaction Status Date / Time No Known Allergies Allergy Unknown Verified 06/23/23 11:14 Active Medications: Current Medications Acetaminophen (Acetaminophen 325 Mg Tablet) 650 mg PO Q6H PRN PRN Reason: Pain, Mild (Pain Scale 1-3) Docusate Sodium (Docusate Sodium 100 Mg Capsule) 100 mg PO DAILY PRN PRN Reason: Constipation Fentanyl (Fentanyl Citrate/Pf 100 Mcg/2 Ml Vial) 25 mcg IVPUSH Q5M PRN; Protocol PRN Reason: Pain, Moderate(Pain Scale 4-6) Lactated Ringer's (Lr) 1,000 mls @ 100 mls/hr IVCONT .Q10H REPLACED BY [facility] Last Admin: 06/23/23 12:22 Dose: 100 mls/hr Ondansetron HCl (Ondansetron Hcl 4 Mg/2 Ml Vial) 4 mg IVPUSH ONCE PRN PRN Reason: Nausea and Vomiting Oxycodone HCl (Oxycodone Hcl Immed Release 5 Mg Tablet) 5 mg PO ONCE PRN PRN Reason: Pain, Severe (Pain Scale 7-10) Sodium Chloride (0.9 % Sodium Chloride Flush 3 Ml Syringe) 3 ml IVFLUSH QSHIFT REPLACED BY [facility] Home Medications Medication Instructions Recorded Confirmed Last Taken Type cholecalciferol (vitamin D3) 25 25 mcg PO DAILY 06/24/23 06/24/23 06/23/23 History mcg (1,000 unit) tablet (Vitamin D3) multivitamin 1 tab PO DAILY 06/24/23 06/24/23 06/23/23 History Physical Exam Vital Signs and Narrative: Vital Signs: Last Vital Signs Temp 98.4 F 06/23/23 14:45 Pulse 74 06/23/23 15:55 Resp 16 06/23/23 15:55 BP 138/82 06/23/23 15:55 Pulse Ox 99 06/23/23 15:55 O2 Del Method Room Air 06/23/23 15:55 O2 Flow Rate 2 06/23/23 13:35 BMI result Body Mass Index 25.5 General: AOx3, no acute distress Resp: CTA bilaterally CVS: S1, S2, slow. Regular rhythm with occasional long pauses between beats GI: +BS, NT, no distention Skin: No rash Neuro: Cranial nerves II-XII grossly intact bilaterally. Motor grossly intact bilaterally Extremities: No edema Psych: Appropriate affect Results Labs 06/23/23 16:57 06/23/23 16:57 Labs: Laboratory Results - last 24 hr 06/23/23 11:10 Urine Test NEGATIVE Assessment and Plan (1) Bradycardia: Status: Acute Plan t is a 48-year-old female with a PMH significant for?tbo-yylpvoj-huzuktonh diabetes type 2, s/p gastric bypass surgery 9 months ago, and depression who presents to the hospital for outpatient procedure in the OR to replace her IUD. The patient be admitted to the hospital under observation on telemetry for further evaluation and monitoring of bradycardia and sinus arrhythmia. Bradycardia EKG showed sinus bradycardia of 43 BPM with marked sinus arrhythmia Patient largely asymptomatic: Denies chest pain/pressure, palpitations; has been experiencing occasional dizziness with bending over and straightening up x3 months; 1 syncopal episode in February while patient was at work Will place pacer pads on patient Will have atropine at bedside Will check labs: CBC, CMP, Mag, Lyme, TSH Will make NPO after midnight in anticipation of possible pacemaker placement tomorrow Cardiology consult Monitor on telemetry None insulin-dependent diabetes type 2 Patient no longer on diabetic medication since gastric bypass surgery Will still put on diabetic diet Full Code Attending:?Dr. Chen DVT Prophylaxis: Pneumatic boots in anticipation of possible surgical procedure tomorrow Patient will be admitted to the hospital under observation on telemetry for evaluation and close monitoring of bradycardia and marked sinus arrhythmia. Patient may have surgical procedure tomorrow. Time Spent With Patient Time: Total time managing care of this patient today ____ minutes. Quality Stroke Does the patient have a stroke diagnosis?: No VTE Prior VTE?: No VTE Risk Level:: Medical - moderate - high VTE Device Contraindication: N/A - Device Ordered VTE Drug Contraindication: Treatment Not Indicated
--- NOTE | 2023-06-23 17:01 | PC.NURSE ---
STAT LABS DRAWN
[2023-06-23 17:08] LABS: Mean Corpuscular HGB Conc 33.3 g/dl (31.0-35.0); Mean Corpuscular Hemoglobin 29.4 pg (27.0-33.0); Mean Corpuscular Volume 88.2 fL (80.0-98.0); Mean Platelet Volume 12.5 fL (9.4-12.3); Platelet Count 193 X10*3/uL (160-400); Red Blood Count 4.42 X10*6/uL (4.20-5.50); Red Cell Distribution Width 12.7 % (11.0-16.0)
[2023-06-23 17:23] LABS: WBC ABN SCTR FOR CBC 1; White Blood Count 8.1 X10*3/uL (4.8-10.8)
[2023-06-23 17:36] LABS: Magnesium 1.8 mg/dL (1.6-2.6)
[2023-06-23 17:43] LABS: Alanine Aminotransferase 20 U/L (0-31); Albumin Level 3.7 g/dL (3.5-5.0); Alkaline Phosphatase 65 U/L (39-117); Anion Gap 8 (12-20); Aspartate Amino Transferase 22 U/L (5-31); Bilirubin Total 0.5 mg/dL (0.0-1.0); Blood Urea Nitrogen 9 mg/dL (9-16); Calcium 8.8 mg/dL (8.4-10.2); Carbon Dioxide 26 mmol/L (22-29); Chloride 110 mmol/L (96-108); Creatinine Clr Calc Pharmacy 106.9; Estimated Glomerular Filt Rate > 60; Glucose Random 131 mg/dL (60-115); Potassium 3.4 mmol/L (3.3-5.1); Sodium 141 mmol/L (135-145); Total Protein 6.4 g/dL (6.5-8.0)
[2023-06-23 17:44] LABS: Glucose, Whole Blood 138 mg/dL (60-115)
[2023-06-23 18:00] LABS: TSH reflex Free T4 0.18 uIU/mL (0.32-4.0)
[2023-06-23 18:52] LABS: Free T4 (Free Thyroxine) 0.91 ng/dL (0.71-1.85)
[2023-06-24 03:21] VITALS: BP 153/74; PULSE 60; RESP 18; TEMP 36.6; O2SAT 95
[2023-06-24 07:17] LABS: Glucose, Whole Blood 87 mg/dL (60-115)
[2023-06-24 07:25] VITALS: BP 150/91; PULSE 60; RESP 20; TEMP 36.5; O2SAT 98
[2023-06-24] MEDS: Lactated Ringers 1,000 ML 100 ML IVCONT (08:12)
--- NOTE | 2023-06-24 09:39 | PHA.MEDREC ---
Pharmacy Consult ? Medication Reconciliation Pharmacy has completed the medication reconciliation. Patient states they do not take any prescription medications. Only takes vitamins, per patient.
--- NOTE | 2023-06-24 11:00 | MHC.CM.PN ---
HOMA 06/24. Pt admitted with displacement of intrauterine contraceptive device. Pt live at home with significant other and children, is currently employed and independent/self-care. D/C plan is to return home self-care. Pts significant other will transport her home. PCP: Wil Thompson
[2023-06-24 11:04] LABS: Glucose, Whole Blood 93 mg/dL (60-115)
--- NOTE | 2023-06-24 11:05 | MHC.CM.PN ---
HOMA 06/24. Pt admitted with displacement of intrauterine contraceptive device. Pt lives at home with significant other and children, is currently employed and independent/self-care. D/C plan is to return home self-care. Pts significant other will transport her home. Offered HCP, pt declined at this time. PCP: Wil Thompson
[2023-06-24 11:18] VITALS: BP 158/85; PULSE 57; RESP 18; TEMP 36.9; O2SAT 97
--- NOTE | 2023-06-24 12:23 | PM.PNCARD ---
Subjective Subjective Date of Service: 06/24/23 Principal diagnosis: Sinus node dysfunction Interval history: Patient continues to have no symptoms. Overnight had pause of 4.5 seconds. Patient during that time was asymptomatic as well. Continues to have junctional escape. No other arrhythmias noted. Blood pressure is stable. Review of Systems Constitutional: Reports no additional constitutional complaints Physical Exam Vital Signs: Last Vital Signs Temp 98.5 F 06/24/23 11:18 Pulse 57 06/24/23 11:18 Resp 18 06/24/23 11:18 BP 158/85 H 06/24/23 11:18 Pulse Ox 97 06/24/23 11:18 O2 Del Method Room Air 06/24/23 11:18 O2 Flow Rate 2 06/23/23 13:35 BMI result Body Mass Index 25.5 Const General: cooperative, comfortable, no acute distress, alert and awake Nutritional Appearance: average body habitus Limitations: no limitations Neck Neck: Yes trachea midline, Yes supple and Yes no JVD Resp Effort & Inspection: normal respiratory effort Auscultation: clear to auscultation bilaterally Cardio Jugular venous distension: no JVD Palpation: normal PMI Rate: regular rate Rhythm: abnormal rhythm other (Occasional skipped beats) Heart sounds: S1 normal heart sound present, S2 normal heart sound present, no click, no gallops, no murmurs and no rubs Extrem General: Yes no clubbing, cyanosis or edema Objective Labs and Meds 06/23/23 16:57 06/23/23 16:57 Lab results: Laboratory Results - last 24 hr 06/23/23 06/23/23 06/24/23 16:57 17:39 07:10 WBC 8.1 RBC 4.42 Hgb 13.0 Hct 39.0 MCV 88.2 MCH 29.4 MCHC 33.3 RDW 12.7 Plt Count 193 MPV 12.5 H Absolute Nucleated RBC 0.000 Nucleated RBC % (auto) 0.0 Sodium 141 Potassium 3.4 Chloride 110 H Carbon Dioxide 26 Anion Gap 8 L BUN 9 Creatinine 0.69 Estim Creat Clear Calc 106.9 Estimated GFR > 60 POC Glucose 138 H 87 Random Glucose 131 H Calcium 8.8 Magnesium 1.8 Total Bilirubin 0.5 AST 22 ALT 20 Alkaline Phosphatase 65 Total Protein 6.4 L Albumin 3.7 TSH 0.18 L Free T4 0.91 06/24/23 10:57 WBC RBC Hgb Hct MCV MCH MCHC RDW Plt Count MPV Absolute Nucleated RBC Nucleated RBC % (auto) Sodium Potassium Chloride Carbon Dioxide Anion Gap BUN Creatinine Estim Creat Clear Calc Estimated GFR POC Glucose 93 Random Glucose Calcium Magnesium Total Bilirubin AST ALT Alkaline Phosphatase Total Protein Albumin TSH Free T4 Progress Note: A&P Assessment and plan (1) Sinus node dysfunction: Status: Acute Assessment and Plan: Patient definitely has sinus node dysfunction but has no symptoms whatsoever including with the pause of 4.5 seconds. Discussed the case with electrophysiology about placement of pacemaker. They feel that at this point time pacemaker is not indicated as patient is completely asymptomatic but they would like close outpatient monitoring. Will schedule for event monitor as well as a treadmill stress test to evaluate for chronotropic competence. Patient advised to call with any new symptoms of lightheadedness or syncope which may then indicate a pacemaker placement that point time. Cause for sinus node dysfunction is unclear at this point in time given that she has no medications. Obviously this does not appear to be vagal in nature. We waiting for blood work from Lyme disease. Thyroid function are within normal limits. Patient can be discharged home and will set up for event monitor on Monday. Thank you for allowing me to partake in the care Time Spent With Patient Time: Total time managing care of this patient today ____ minutes. Progress Note: Quality Stroke Does the patient have a stroke diagnosis?: No Procedures Date of Service Date of Service: 06/24/23
--- NOTE | 2023-06-24 12:46 | PM.DS ---
DS: Providers Provider Date of Service: 06/24/23 Date of admission: 06/23/23 16:00 Date of discharge: 06/24/23 Primary care physician: Wil Thompson MD Consults: 06/23/23 12:54 Consult to Cardiology Routine Consulting Provider: [facility] [place] Cardiovascular Services Reason for consultation: Abnormal EKG, bradycardia DS: Diagnosis Discharge Diagnosis (1) Bradycardia: Status: Acute DS: Summary Hospital Course Hospital Course: 48-year-old female with a PMH significant for?[id number] diabetes type 2, s/p gastric bypass surgery 9 months ago, and depression who presents to the hospital for outpatient procedure in the OR to replace her IUD. The patient be admitted to the hospital under observation on telemetry for further evaluation and monitoring of bradycardia and sinus arrhythmia. Hospital course: Patient came to the hospital because of needed placement of IUD, status post IUD placement-subsequently patient was found to have bradycardic, admitted for observation and monitored on telemetry, seen by Cardiology: sinus node dysfunction but has no symptoms whatsoever including with the pause of 4.5 seconds. Cardiology discussed with painter and decorator: recomeded that at this point time pacemaker is not indicated as patient is completely asymptomatic but they would like close outpatient monitoring. advised to call or go to nearest ED if she with any new symptoms of lightheadedness or syncope which may then indicate a pacemaker placement that point time.Cause for sinus node dysfunction is unclear at this point in time given that she has no medications. blood work from Lyme disease-follow outpatient. Further workup and intervention if needed will be decided outpatient with Cardiology. Cardiology may arrange their own appointment. Plan: Follow Lyme serology out patiently Consider repeating TSH out patiently because TSH was borderline. If any new symptoms including dizziness, lightheadedness, syncope-advised to go to nearest emergency room for further evaluation. Above management discussed with the patient in detail length she understand and in agreement with the above plan, time spent 50 minutes and 50% time spent on counseling. . Time Spent with Patient Time attestation: Total time managing care of this patient today ____ minutes. Discharge coordination time: Greater than 30 minutes Quality: Safe Use of Opioids Does Pt have an Active Cancer Diagnosis on the Problem List?: No Quality: Stroke Does the patient have a stroke diagnosis?: No Physical Exam Vital Signs: Vital Signs: Last Vital Signs Temp 98.5 F 09/09/23 11:18 Pulse 57 06/24/23 11:18 Resp 18 06/24/23 11:18 BP 158/85 H 06/24/23 11:18 Pulse Ox 97 06/24/23 11:18 O2 Del Method Room Air 06/24/23 11:18 O2 Flow Rate 2 06/23/23 13:35 BMI result Body Mass Index 25.5 Appearance: Alert.? Oriented X3.? not in distress.? Eyes: Pupils equal, round and reactive to light.? Sclera nonicteric.? ENT: Pharynx normal.? Moist mucous membranes. cvs: rr, [id number]. res: clear to auscultation ,no rhonchii or wheezing abd: no rebound or guarding ,nt, bs present. ext pulses present , no cyanosis ,Gait well balanced well coordinated. neuro: axo3 , nonfocal. DS: Data Data Completed and Pending Labs on day of discharge: Laboratory Results - last 24 hr 06/23/23 06/23/23 06/24/23 16:57 17:39 07:10 WBC 8.1 RBC 4.42 Hgb 13.0 Hct 39.0 MCV 88.2 MCH 29.4 MCHC 33.3 RDW 12.7 Plt Count 193 MPV 12.5 H Absolute Nucleated RBC 0.000 Nucleated RBC % (auto) 0.0 Sodium 141 Potassium 3.4 Chloride 110 H Carbon Dioxide 26 Anion Gap 8 L BUN 9 Creatinine 0.69 Estim Creat Clear Calc 106.9 Estimated GFR > 60 POC Glucose 138 H 87 Random Glucose 131 H Calcium 8.8 Magnesium 1.8 Total Bilirubin 0.5 AST 22 ALT 20 Alkaline Phosphatase 65 Total Protein 6.4 L Albumin 3.7 TSH 0.18 L Free T4 0.91 06/24/23 10:57 WBC RBC Hgb Hct MCV MCH MCHC RDW Plt Count MPV Absolute Nucleated RBC Nucleated RBC % (auto) Sodium Potassium Chloride Carbon Dioxide Anion Gap BUN Creatinine Estim Creat Clear Calc Estimated GFR POC Glucose 93 Random Glucose Calcium Magnesium Total Bilirubin AST ALT Alkaline Phosphatase Total Protein Albumin TSH Free T4 Discharge Plan Discharge Anticipated Discharge Date/Time: 06/24/23 12:30 Patient Disposition: Home, Self-Care Discharge Diagnosis: bradycardia Referrals: Wil Palmer MD [Primary Care Provider] - 1 Week Discharge Medications: Continued multivitamin Tablet 1 tab PO DAILY cholecalciferol (vitamin D3) [Vitamin D3] 25 mcg (1,000 unit) Tablet 25 mcg PO DAILY Discharge Orders: Discharge Order (Routine); Ordered 06/24/23 Ordered By: Pat Chen Diet: Advance to usual diet Activity on Discharge: As tolerated Activity Restrictions/Additional Instructions: You have recently undergone a surgical procedure called hysteroscopic IUD removal and Mirena IUD insertion. During this procedure the a portion of the cervic was taken out. Personal Care: For two weeks - no intercourse, no tampons, no douching. It is best to avoid soaking in a tub or swimming as bacteria in the water can enter the uterus. Bleeding/Discharge: You may experience light vaginal bleeding after surgery. You may also note a watery or blood-tinged weepy discharge for several days after surgery. This usually subsides after several weeks. Diet: You may eat whatever you feel you can tolerate. You may experience residual nausea from the anesthesia or pain medication which may decrease your appetite. It is most important to remain hydrated and clear liquids are usually easily tolerated. Activity: You may resume your normal daily activities. You may find that you tire more easily as a result of the surgery and anesthesia. It is best to avoid strenuous activity or sports for about one week after surgery, although there are no specific restrictions on activity. Pain: You may experience some mild pelvic cramping after surgery. For most patients, Nonsteroidal anti-inflammatory drugs (NSAIDs) such as ibuprofen (Motrin or Advil) or Tylenol works best to control post-operative pain. Typically, ibuprofen (Motrin or Advil) 600 mg is recommended every 6 hours or Tylenol 650 mg every 6 hours as needed for pain for the first 24 to 48 hours after surgery. Do not take the ibuprofen on an empty stomach. Your cramping should resolve within a day or two. If you have cyclic pain without bleeding, contact the office for follow-up at [phone]. Follow-up: schedule a post-operative examination after this procedure in 2 weeks. Please call out office at [phone] if you experience any of the following: Temperature greater than 100.4 degrees Nausea and vomiting, unable to tolerate anything by mouth Vaginal bleeding, more than one pad every hour Foul-smelling vaginal discharge Progressively worsening pain Care Plan Goals: Patient came to the hospital because of needed placement of IUD, status post IUD placement-subsequently patient was found to have bradycardic, admitted for observation and monitored on telemetry, seen by Cardiology: sinus node dysfunction but has no symptoms whatsoever including with the pause of 4.5 seconds. Cardiology discussed with painter and decorator: recomeded that at this point time pacemaker is not indicated as patient is completely asymptomatic but they would like close outpatient monitoring. advised to call with any new symptoms of lightheadedness or syncope which may then indicate a pacemaker placement that point time.Cause for sinus node dysfunction is unclear at this point in time given that she has no medications. blood work from Lyme disease-follow outpatient. repeat tsh outpatient ( boderline low), but free t4 normal. Follow-up with Cardiology outpatient, cardiology may arrange their own appointment. Health Concerns: as above. Plan of Treatment: as above. Assessment: as above.
--- NOTE | 2023-06-24 12:55 | MHC.CM.PN ---
order for home, self care. CM acknowledge.
[2023-06-26 19:48] LABS: Lyme Abs Screen <0.90 index
== END 2023-06-24 14:07 | disposition home or self-care (01) ==
LOC: HO.IMC 16:35
PROVIDERS: Nurse Practitioner; Obstetrics & Gynecology; Admitting Provider Student in an Organized Health Care Education/Training Program; PCP Internal Medicine; Visit Provider Internal Medicine
PROC: 0UJD8ZZ Inspection of Uterus and Cervix, Via Natural or Artificial Opening Endoscopic (ICD-10-PCS; CPT 58555; principal; 2023-06-23 12:30)
DX: R00.1 Bradycardia, unspecified (principal); T83.32XA Displacement of intrauterine contraceptive device, initial encounter; I44.1 Atrioventricular block, second degree; E11.9 Type 2 diabetes mellitus without complications; Z79.4 Long term (current) use of insulin; Z98.84 Bariatric surgery status
CPT/HCPCS: 58301; 58300; 36415; 80053; 81025; 82947; 83735; 84439; 84443; 85027; 86617; 86618; 93005; 96360; 96361; 99222; J1885; J2250; J2405; J3010; J7298

== ENCOUNTER → 2023-06-23 16:00 | Outpatient (BNV) | payer MEDICAID, SELFPAY | PROVIDERS: Admitting Provider Student in an Organized Health Care Education/Training Program; PCP Internal Medicine; Visit Provider Student in an Organized Health Care Education/Training Program | DX: R00.1 Bradycardia, unspecified (principal) | CPT/HCPCS: 99222; 99239 ==

== ENCOUNTER → 2023-07-03 09:05 | Outpatient (REF) | payer MEDICAID, SELFPAY ==
--- NOTE | 2023-07-03 09:07 | CA_ITS ---
Acquisition Time: 2023-07-03 09:17:14 Total Exercise Time: 00:09:37 Test Indications: BRADYCARDIA Medications: SEE H Protocol: ZAIRA Max HR: 148 BPM 85% of Pred: 174 BPM Max BP: 174/088 mmHG Max Work Load: 11.0 METS Exercise stress test exercise 9 min 37 sec of Zaira protocol achieving 82% MPHR with request to stop due to faitgue, without anginal symptoms, with isolated PVCs, and ventricular bigeminy, with normotensive response to exercise, without EKG changes. Test reviewed with Dr. Tadeo. Referred By: Marv Vincent Overread By: Kenyatta Massey
--- NOTE | 2023-07-03 09:07 | HM_ITS ---
* Total procedure length 30 days. Wear time 11.5 days. * Underlying rhythm is sinus. Average ventricular rate 59/Min. Range 32 to 120/Min. * No atrial fibrillation detected. * Rare supraventricular and ventricular ectopy. Minimal burden. * Longest pause 3.5 seconds at 21:27. Other shorter pauses during sleep hours noted. No significant daytime pauses. * No clear symptoms documented. MTDD
== END ==
LOC: HO.CARD 09:05
PROVIDERS: PCP Internal Medicine; Visit Provider Internal Medicine Cardiovascular Disease
DX: I49.5 Sick sinus syndrome (principal)
CPT/HCPCS: 93017; 93270

== ENCOUNTER → 2023-07-03 09:07 | Outpatient (BNV) | payer MEDICAID, SELFPAY | PROVIDERS: PCP Internal Medicine; Visit Provider Nurse Practitioner | DX: I49.5 Sick sinus syndrome (principal) | CPT/HCPCS: 93016; 93018; 93272 ==

== ENCOUNTER 2023-07-20 12:55 | Outpatient (REF) | payer MEDICAID, SELFPAY | END 2023-07-20 12:56 | disposition home or self-care (01) | LOC: HO.LNP 12:55 | PROVIDERS: PCP Internal Medicine; Visit Provider Obstetrics & Gynecology | DX: N76.0 Acute vaginitis (principal); Z30.431 Encounter for routine checking of intrauterine contraceptive device; Z32.02 Encounter for pregnancy test, result negative | CPT/HCPCS: 0353U; 81025; 87480; 87510; 87660; 99212 ==

== ENCOUNTER 2023-07-20 12:55 | Outpatient (AMB) | payer MEDICAID, SELFPAY ==
--- NOTE | 2023-07-20 13:02 | MHC.OFFVIS ---
Intake Vital Signs 07/20/23 13:06 Height 5 ft 7 in Weight 154 lb BMI 24.1 BP 124/68 Intake Visit Reasons: IUD Check Allergies No Known Allergies Allergy (Unknown, Verified 07/20/23 13:06) HPI HPI Comments History of Present Illness Details The patient is presenting for IUD check. The patient has no complaints periods are normal, not painful, and flow is normal. Complaining of vulvovaginal itching with no other associated symptom PFSH Medical History Obesity (BMI 30-39.9) History of abnormal cervical Pap smear Urge incontinence Depression Diabetes mellitus Surgical History H/O gastric bypass History of loop electrical excision procedure (LEEP) Family History Mother HIV (human immunodeficiency virus infection) Maternal Grandmother Diabetes mellitus Social History Alcohol intake: never Patient Tobacco Use Status: Never used Tobacco Second Hand Smoke Exposure: No service: No Gender identity: Female Female Reproductive History Menstrual Age of Menarche: 15 Review of Systems Const All systems reviewed & are unremarkable except as noted in HPI and below Physical Exam Vital Signs: Last Vital Signs BP 124/68 07/20/23 13:06 BMI result Body Mass Index 24.1 General: Yes no CVA tenderness External Female Exam: normal external appearance and normal appearance of the urethra Speculum Exam - Vagina: normal appearance of the vagina, normal palpation, no lesions and no masses Speculum Exam - Cervix: normal appearance of the cervix, normal palpation, no lesions, no masses, nontender and Other cervical findings present (IUD thread in place) Bimanual exam- vagina & uterus: normal bimanual exam, normal palpation, uterine size normal, normal palpation, uterine shape normal, No Cervical tenderness present and non-tender Bimanual Exam- Adnexa, other: normal adnexae Back/Spine/Pelvis Back: no CVA tenderness Results AMB Test Urine AMB Test Urine Negative Last Edit by Erin Martinez CMA on 07/20/23 13:11 Results Reviewed Results Reviewed: Laboratory Last Values [facility]st Clinic Negative 07/20/23 13:10 Assessment & Plan Assessment & Plan (1) IUD check up: Code(s): Z30.431 - Encounter for routine checking of intrauterine contraceptive device Plan: UPT done in the office was negative. Discussed with the patient the finding on physical exam, IUD string in place, the patient was reassured. Instructions given to patient to call in case of temperature above 100.4, severe cramping/pelvic pain, abnormal discharge or abnormal uterine bleeding or if she misses her. Otherwise follow-up at her annual exam appointment. All questions answered, the patient verbalized understanding. (2) Vulvovaginitis: Code(s): N76.0 - Acute vaginitis Plan: GC/CT, Bacterial Vaginosis panel taken, Terazol 0.8% q.h.s. for 3 days was sent to the patient's pharmacy. The patient was instructed to call if symptoms don't improve in 48 hours. Orders: Orders AMB HCG Urine Test Today Z32.02 - Encounter for test, result negative CT NG by PCR Today N76.0 - Acute vaginitis Bacterial Vaginosis Panel Today N76.0 - Acute vaginitis Medications: New terconazole 0.8% 1 appful vaginal BEDTIME 20 grams 0RF 3 days Coding Level of Care Code Est Pt Level 3 (94934) Diagnoses IUD check up Z30.431 Vulvovaginitis N76.0
[2023-07-20 13:06] VITALS: BP 124/68; BMI 24.1
== END 2023-07-20 15:14 | disposition home or self-care (01) ==
PROVIDERS: PCP Internal Medicine; Visit Provider Obstetrics & Gynecology
DX: Z30.431 Encounter for routine checking of intrauterine contraceptive device (principal); N76.0 Acute vaginitis; Z32.02 Encounter for pregnancy test, result negative
CPT/HCPCS: 99213

== ENCOUNTER 2023-07-26 15:30 | Outpatient (REF) | payer MEDICAID, SELFPAY ==
[2023-07-26 17:31] LABS: MANUAL DIFF FLAG NO
[2023-07-26 17:35] LABS: Basophils Absolute Auto 0.1 X10*3/uL (0.0-0.2); Basophils Percent Auto 0.7 % (0-2); Eosinophils Absolute Auto 0.2 X10*3/uL (0.0-0.4); Eosinophils Percent Auto 2.7 % (0-4); Imm Gran Abs Auto 0.03 X10*3/uL (0.00-0.03); Imm Gran Pct Auto 0.3 % (0.0-0.4); Mean Corpuscular Hemoglobin 29.1 pg (27.0-33.0); SCAN SMEAR FLAG 1
[2023-07-26 17:37] LABS: Hematocrit 42.4 % (37.0-47.0); Lymphocytes Absolute Auto 3.1 X10*3/uL (1.2-4.9); Lymphocytes Percent Auto 35.5 % (20-40); Mean Corpuscular Volume 88.1 fL (80.0-98.0); Mean Platelet Volume 13.2 fL (9.4-12.3); Monocytes Absolute Auto 0.8 X10*3/uL (0.1-1.2); Monocytes Percent Auto 9.2 % (2-11); Neutrophils Absolute Auto 4.6 x10*3/uL (2.0-8.3); Neutrophils Percent Auto 51.6 % (45-73); PLT CLUMP 1; Red Blood Count 4.81 X10*6/uL (4.20-5.50); Red Cell Distribution Width 13.2 % (11.0-16.0)
[2023-07-26 17:45] LABS: PLT ABN DIST 1
[2023-07-26 17:59] LABS: Alanine Aminotransferase 20 U/L (0-31); Albumin Level 4.5 g/dL (3.5-5.0); Alkaline Phosphatase 79 U/L (39-117); Anion Gap 15 (12-20); Aspartate Amino Transferase 22 U/L (5-31); Bilirubin Total 0.6 mg/dL (0.0-1.0); Blood Urea Nitrogen 16 mg/dL (9-16); Calcium 9.4 mg/dL (8.4-10.2); Carbon Dioxide 22 mmol/L (22-29); Chloride 105 mmol/L (96-108); Cholesterol 124 mg/dL (<200); Estimated Glomerular Filt Rate > 60; Glucose Random 97 mg/dL (60-115); HDL Cholesterol 40 mg/dL (>40); Iron 72 mcg/dL (30-160); LDL Cholesterol Calculated 74 mg/dL (<100); Percent Iron Saturation 26 % (15-50); Potassium 3.7 mmol/L (3.3-5.1); Sodium 138 mmol/L (135-145); Total Iron Binding Capacity 275 mcg/dL (228-428); Total Protein 7.7 g/dL (6.5-8.0); Triglycerides 51 mg/dL (<150); Unsaturated Iron Binding 203 ug/dL
[2023-07-26 18:07] LABS: Creatinine Urine 222.63 mg/dL; Microalbum/Creatinine Ratio Ur 14.3 ug/mg cr (<30)
[2023-07-26 18:15] LABS: TSH reflex Free T4 0.26 uIU/mL (0.32-4.0)
[2023-07-26 18:27] LABS: Platelet Count 240 X10*3/uL (160-400); White Blood Count 8.8 X10*3/uL (4.8-10.8)
[2023-07-26 18:28] LABS: Folate 8.9 ng/mL (> or = 4.0); Vitamin B12 1687 pg/mL (200-900)
== END 2023-07-26 15:31 | disposition home or self-care (01) ==
LOC: CF 15:30
PROVIDERS: Visit Provider Internal Medicine
DX: E11.65 Type 2 diabetes mellitus with hyperglycemia (principal)
CPT/HCPCS: 36415; 80053; 80061; 82043; 82570; 82607; 82746; 83540; 84439; 84443; 85025

== ENCOUNTER 2023-08-03 14:33 | Outpatient (REF) | payer MEDICAID, SELFPAY ==
[2023-08-03 18:31] LABS: CT PCR NOT DETECTED (Not Detect.); NG PCR NOT DETECTED (Not Detect.)
[2023-08-04 11:15] LABS: BV Int Neg Control Negative (Negative); BV Int Pos Control Positive (Positive)
== END 2023-08-03 14:34 | disposition home or self-care (01) ==
LOC: HO.LNP 14:33
PROVIDERS: Obstetrics & Gynecology; PCP Internal Medicine; Visit Provider Nurse Practitioner
DX: N76.0 Acute vaginitis (principal); N76.2 Acute vulvitis; B37.31 Acute candidiasis of vulva and vagina; R00.1 Bradycardia, unspecified
CPT/HCPCS: 0353U; 87480; 87510; 87660; 99212

== ENCOUNTER 2023-08-03 14:33 | Outpatient (AMB) | payer MEDICAID, SELFPAY ==
[2023-08-03 14:41] VITALS: BP 120/62; PULSE 41; BMI 24.2
--- NOTE | 2023-08-03 14:41 | A.OFFVIS_ITS ---
Intake Vital Signs 08/03/23 14:41 08/03/23 15:06 Height 5 ft 7 in Weight 154 lb 5.177 oz BMI 24.2 BP 120/62 Blood Pressure Location Lt brachial Position Sitting Pulse 41 L 44 L Pulse Source Pulse Oximeter Auscultation Intake Visit Reasons: f/up after testing Intake Note: f/u after testing Allergies No Known Allergies Allergy (Unknown, Verified 08/03/23 15:20) Medication List - Last Reconciled 08/03/23 by Kenyatta Massey NP terconazole 0.8% 1 appful vaginal BEDTIME 3 days HPI HPI Comments History of Present Illness Details 48-year-old female here for a follow-up on test results. Patient was seen regarding 4.5 second pauses and had a exercise stress test and event montior. Event montior was not completed due to her losing the device during her move. Exercise stress test showed that her heart rate did rise with exercise. She seen Dr. Mary on 07/25/23 who ordered a 24 hour holter to assess for heart blocks and highly recommended for her to avoid marijuana use. [facility] Medical History Obesity (BMI 30-39.9) History of abnormal cervical Pap smear Urge incontinence Depression Diabetes mellitus Surgical History H/O gastric bypass History of loop electrical excision procedure (LEEP) Family History Mother HIV (human immunodeficiency virus infection) Maternal Grandmother Diabetes mellitus Social History Alcohol intake: never Patient Tobacco Use Status: Never used Tobacco Second Hand Smoke Exposure: No service: No Gender identity: Female Female Reproductive History Menstrual Age of Menarche: 15 Review of Systems ENT Reports dizziness Card Denies chest pain, Denies chest pain at rest, Denies chest pain with activity, Denies rapid heart rate, Denies pedal edema, Denies edema, Denies leg edema, Denies lightheadedness, Denies palpitations, Denies dyspnea, Denies dyspnea on exertion and Denies orthopnea Resp Denies cough, Denies dyspnea and Denies dyspnea on exertion GI Denies hematochezia and Denies change in stool character Musc Denies abnormal gait, Reports limited range of motion, Reports muscle cramps, Denies muscle weakness, Denies numbness, Denies radiating pain into limb, Denies stiffness and Denies tingling Neuro Denies abnormal gait, Reports dizziness, Denies numbness and Denies tingling Endo Denies palpitations Physical Exam Vital Signs: Last Vital Signs Pulse 44 L 08/03/23 15:06 BP 120/62 08/03/23 14:41 BMI result Body Mass Index 24.2 Assessment & Plan Assessment & Plan (1) Bradycardia: Code(s): R00.1 - Bradycardia, unspecified Plan Follow-up after upcoming sleep study. Report any new symptoms, lightheadedness, or syncopal events. Get [address] Mary. Coding Level of Care Code Tele Est Pt Level 3 (20282) Diagnoses Bradycardia R00.1
[2023-08-03 15:06] VITALS: PULSE 44
== END 2023-08-03 15:12 | disposition home or self-care (01) ==
PROVIDERS: PCP Internal Medicine; Visit Provider Nurse Practitioner
DX: R00.1 Bradycardia, unspecified (principal)
CPT/HCPCS: 99213

== ENCOUNTER 2023-08-03 15:18 | Outpatient (AMB) | payer MEDICAID, SELFPAY ==
--- NOTE | 2023-08-03 15:19 | A.OFFVIS_ITS ---
Intake Vital Signs 08/03/23 15:20 Height 5 ft 7 in Weight 154 lb 5.177 oz BMI 24.2 BP 114/68 Intake Visit Reasons: vaginal discharge Medical Practitioners Required: No Information Interpreted: non-clinical & clinical Chemical Strength Tester: Chemical Strength Tester Present (Ella URBANO) Accompanied by: Self / Same As Patient Allergies No Known Allergies Allergy (Unknown, Verified 08/03/23 15:20) HPI HPI Comments History of Present Illness Details Presenting for follow-up regarding vulvovaginal itching, the patient took Terazol 0.3% q.h.s. and did not improve BV panel was negative for Dianelys PFSH Medical History Obesity (BMI 30-39.9) History of abnormal cervical Pap smear Urge incontinence Depression Diabetes mellitus Surgical History H/O gastric bypass History of loop electrical excision procedure (LEEP) Family History Mother HIV (human immunodeficiency virus infection) Maternal Grandmother Diabetes mellitus Social History Alcohol intake: never Patient Tobacco Use Status: Never used Tobacco Second Hand Smoke Exposure: No service: No Gender identity: Female Female Reproductive History Menstrual Age of Menarche: 15 Review of Systems Const All systems reviewed & are unremarkable except as noted in HPI and below Physical Exam Vital Signs: Last Vital Signs BP 114/68 08/03/23 15:20 BMI result Body Mass Index 24.2 General: Yes no CVA tenderness External Female Exam: normal appearance of the urethra and other (Eczema changes at the labia majora bilaterally) Speculum Exam - Vagina: normal appearance of the vagina, normal palpation, no lesions and no masses Speculum Exam - Cervix: normal appearance of the cervix, normal palpation, no lesions, no masses and nontender Bimanual exam- vagina & uterus: normal bimanual exam, normal palpation, uterine size normal, normal palpation, uterine shape normal, No Cervical tenderness present and non-tender Bimanual Exam- Adnexa, other: normal adnexae Back/Spine/Pelvis Back: no CVA tenderness Assessment & Plan Assessment & Plan (1) Vulvar inflammation: Code(s): N76.2 - Acute vulvitis Plan: GC/CT with BV panel collected. Will treat with clobetasol cream b.i.d. for 5 days, instructions given the patient to discontinue the medication in case of worsening of her symptoms and follow-up in 2 weeks if no improvement will proceed with vulvar biopsy rule out PEPE. All questions answered, the patient verbalized understanding. Instructions given the patient to schedule a 2 week follow-up appointment. Orders: Orders Bacterial Vaginosis Panel Today B37.31 - Acute candidiasis of vulva and vagina, N76.0 - Acute vaginitis CT NG by PCR Today B37.31 - Acute candidiasis of vulva and vagina, N76.0 - Acute vaginitis Medications: New clobetasol 0.05% Apply to the affected area twice a day for no more than 5 days 1 appl topical BID 15 grams 0RF 5 days Coding Level of Care Code Est Pt Level 3 (08198) Diagnoses Vulvar inflammation N76.2
[2023-08-03 15:20] VITALS: BP 114/68; BMI 24.2
== END 2023-08-03 15:34 | disposition home or self-care (01) ==
LOC: HO.HWS 15:18
PROVIDERS: PCP Internal Medicine; Visit Provider Obstetrics & Gynecology
DX: N76.2 Acute vulvitis (principal)
CPT/HCPCS: 99213

== ENCOUNTER → 2023-08-21 10:04 | Outpatient (REF) | payer MEDICAID, SELFPAY | LOC: HO.SL 10:04 | PROVIDERS: PCP Internal Medicine; Visit Provider Internal Medicine Cardiovascular Disease | DX: I49.5 Sick sinus syndrome (principal); E66.9 Obesity, unspecified; R06.83 Snoring | CPT/HCPCS: 95806 ==

== ENCOUNTER → 2023-08-21 10:12 | Outpatient (BNV) | payer MEDICAID, SELFPAY | PROVIDERS: PCP Internal Medicine; Visit Provider Internal Medicine | DX: R06.83 Snoring (principal) | CPT/HCPCS: 95806 ==

== ENCOUNTER 2023-09-04 14:22 | Outpatient (AMB) | payer MEDICAID, SELFPAY ==
--- NOTE | 2023-09-04 14:28 | MHC.OFFVIS ---
Intake Vital Signs 09/04/23 14:29 Height 5 ft 7 in Weight 159 lb 9.835 oz BMI 25.0 BP 120/62 Blood Pressure Location Lt brachial Position Sitting Pulse 51 Pulse Source Pulse Oximeter Intake Visit Reasons: follow-up after stephanie and sleep study Pot Press Operator Required: No Allergies No Known Allergies Allergy (Unknown, Verified 09/04/23 14:30) HPI follow-up after stephanie and sleep study HPI Details Tamanna is a 48-year-old female with past medical history of diabetes, obesity status post bariatric surgery with significant weight loss who recently had a wrapper operator procedure and was noted to have bradycardia with junctional escape beats. She was monitored overnight in the hospital and was noted to have a 5 point 2nd pause. There was concern for sinus node dysfunction. She has undergone a outpatient cardiac event monitor, exercise stress test, sleep study and has seen EP in evaluation. She now presents for follow-up. Today she reports that she has not had any issues with lightheadedness, presyncope, syncope, falls. No chest discomfort at rest or with activity. No shortness of breath, palpitations, PND, orthopnea or edema. She has good activity tolerance. 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 [facility] Medical History Obesity (BMI 30-39.9) History of abnormal cervical Pap smear Urge incontinence Depression Diabetes mellitus Surgical History H/O gastric bypass History of loop electrical excision procedure (LEEP) Family History Mother HIV (human immunodeficiency virus infection) Maternal Grandmother Diabetes mellitus Social History Alcohol intake: never Patient Tobacco Use Status: Never used Tobacco Second Hand Smoke Exposure: No service: No Gender identity: Female Female Reproductive History Menstrual Age of Menarche: 15 Review of Systems Const All systems reviewed & are unremarkable except as noted in HPI and below ENT Denies dizziness Card Denies chest pain, Denies chest pain at rest, Denies chest pain with activity, Denies rapid heart rate, Denies pedal edema, Denies edema, Denies leg edema, Denies lightheadedness, Denies palpitations, Denies dyspnea, Denies dyspnea on exertion and Denies orthopnea Resp Denies cough, Denies dyspnea and Denies dyspnea on exertion GI Denies hematochezia and Denies change in stool character Musc Denies abnormal gait, Denies limited range of motion, Denies muscle cramps, Denies muscle weakness, Denies numbness, Denies radiating pain into limb, Denies stiffness and Denies tingling Neuro Denies abnormal gait, Denies dizziness, Denies numbness and Denies tingling Endo Denies palpitations Physical Exam Vital Signs: Last Vital Signs Pulse 51 09/04/23 14:29 BP 120/62 09/04/23 14:29 BMI result Body Mass Index 25.0 Const General: cooperative, healthy appearing, comfortable and no acute distress Orientation/consciousness: patient oriented x3 Neck Neck: Yes normal visual inspection Resp Effort & Inspection: normal respiratory effort Auscultation: clear to auscultation bilaterally, no crackles, no rales, no rhonchi and no wheezes Cardio Jugular venous distension: no JVD Rate: regular rate Rhythm: regular rhythm Heart sounds: S1 normal heart sound present, S2 normal heart sound present, no murmurs and no rubs Neuro General: patient oriented x3 Extrem General: Yes normal to inspection, No no pedal edema and No calf tenderness Psych Appearance: grossly normal Mental Status: mental status grossly normal Speech and movement: Normal speech and movement present Assessment & Plan Assessment & Plan (1) Bradycardia: Code(s): R00.1 - Bradycardia, unspecified Plan: Nor finding of sinus bradycardia with junctional escape beats. During hospital overnight admission she was noted to have a 4.2nd pause. No history presyncope, syncope. Lyme test, normal range, TSH 0.26, free T4 1.00. Cardiac event monitor worn for 11 days out of 30 showed sinus rhythm with average heart rate 59, heart rate range 32 to 120, one 3.5 second pause, other pauses of shorter duration during sleep. Exercise stress test done on 07/03/2023 showed exercise 9 minutes 37 seconds with no anginal or EKG changes, was able to achieve 82% of mphr. Sleep study recently done shows no sleep apnea. She was evaluated by , for EP. His no is scanned in our system and was reviewed. He was awaiting cardiac event monitor results. Patient did not warrant pacemaker at the time of his evaluation. Since no significant pauses noted on Holter monitor and no significant symptoms then ppm still not required. She has some findings of sinus node dysfunction and should not take any rate slowing medications. Signs and symptoms symptomatic bradycardia reviewed with her. Emergency care if ever needed for presyncope, syncope. She has follow-up with Dr. Zazueta but at present is unsure of when. Cardiology office visit in 3 months for re-evaluation, sooner if needed. (2) Sinus node dysfunction: Code(s): I49.5 - Sick sinus syndrome Plan: As above. (3) Marijuana smoker: Code(s): F12.90 - Cannabis use, unspecified, uncomplicated Plan: She tells me that she smokes marijuana every day and has since she was a teenager. She describes having bipolar disorder and does not take medications as she does not like how they make her feel. She uses the marijuana as medicine to control her bipolar symptoms. Notes indicate that she was instructed by Dr. zazueta to stop smoking marijuana. This was reinforced. (4) Weight loss: Code(s): R63.4 - Abnormal weight loss Plan: History of bariatric surgery. She is down 60 lb since October 2021. Coding Level of Care Code Est Pt Level 3 (32459) Diagnoses Bradycardia R00.1 Sinus node dysfunction I49.5 Marijuana smoker F12.90 Weight loss R63.4 Time Spent (min) 26
[2023-09-04 14:29] VITALS: BP 120/62; PULSE 51; BMI 25.0
== END 2023-09-04 14:50 | disposition home or self-care (01) ==
PROVIDERS: PCP Internal Medicine; Visit Provider Nurse Practitioner Family
DX: I49.5 Sick sinus syndrome (principal); F12.90 Cannabis use, unspecified, uncomplicated; R63.4 Abnormal weight loss
CPT/HCPCS: 99213

== ENCOUNTER → 2023-09-04 14:22 | Outpatient (BNVA) | payer MEDICAID, SELFPAY | PROVIDERS: PCP Internal Medicine; Visit Provider Nurse Practitioner Family | DX: R00.1 Bradycardia, unspecified (principal); I49.5 Sick sinus syndrome; F12.90 Cannabis use, unspecified, uncomplicated; R63.4 Abnormal weight loss | CPT/HCPCS: 99212 ==

== ENCOUNTER 2023-09-05 14:43 | Outpatient (AMB) | payer MEDICAID, SELFPAY ==
--- NOTE | 2023-09-05 15:02 | A.OFFVIS_ITS ---
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 The patient was treated with Terazol, bilateral vulvar eczema persistent so she was prescribed clobetasol treatment for short-term, her symptoms have improved markedly and resolved completely. No other concerns PFSH Medical History Obesity (BMI 30-39.9) History of abnormal cervical Pap smear Urge incontinence Depression Diabetes mellitus Surgical History H/O gastric bypass History of loop electrical excision procedure (LEEP) Family History Mother HIV (human immunodeficiency virus infection) Maternal Grandmother Diabetes mellitus Alcohol intake: never Patient Tobacco Use Status: Never used Tobacco Second Hand Smoke Exposure: No service: No Gender identity: Female Female Reproductive History Menstrual Age of Menarche: 15 Review of Systems Const All systems reviewed & are unremarkable except as noted in HPI and below Physical Exam Vital Signs: Last Vital Signs BP 120/70 09/05/23 15:12 BMI result Body Mass Index 24.4 General: Yes no CVA tenderness External Female Exam: normal external appearance and normal appearance of the urethra Speculum Exam - Vagina: normal appearance of the vagina, normal palpation, no lesions and no masses Speculum Exam - Cervix: normal appearance of the cervix, normal palpation, no lesions, no masses and nontender Bimanual exam- vagina & uterus: normal bimanual exam, normal palpation, uterine size normal, normal palpation, uterine shape normal, No Cervical tenderness present and non-tender Bimanual Exam- Adnexa, other: normal adnexae Back/Spine/Pelvis Back: no CVA tenderness Assessment & Plan Assessment & Plan (1) Candidal vulvovaginitis: Comment: With significant bilateral eczema- resolved Code(s): B37.31 - Acute candidiasis of vulva and vagina Plan: Discussed with the patient the finding on pelvic exam showing bilateral normal vulvar exam with no evidence of eczema. The patient was reassured. Instructions given the patient to call in case symptoms recur. All questions answered, the patient verbalized understanding Coding Level of Care Code Est Pt Level 3 (90658) Diagnoses Candidal vulvovaginitis B37.31
[2023-09-05 15:12] VITALS: BP 120/70; BMI 24.4
== END 2023-09-05 16:15 | disposition home or self-care (01) ==
LOC: HO.HWS 14:43
PROVIDERS: PCP Internal Medicine; Visit Provider Obstetrics & Gynecology
DX: B37.31 Acute candidiasis of vulva and vagina (principal)
CPT/HCPCS: 99213

== ENCOUNTER → 2023-09-05 14:43 | Outpatient (BNVA) | payer MEDICAID, SELFPAY | PROVIDERS: PCP Internal Medicine; Visit Provider Obstetrics & Gynecology | DX: B37.31 Acute candidiasis of vulva and vagina (principal) | CPT/HCPCS: 99212 ==

== ENCOUNTER 2023-12-15 14:59 | Outpatient (REF) | payer MEDICAID, SELFPAY ==
[2023-12-15 18:31] LABS: Alanine Aminotransferase 32 U/L (0-31); Albumin Level 4.1 g/dL (3.5-5.0); Alkaline Phosphatase 70 U/L (39-117); Anion Gap 10 (12-20); Aspartate Amino Transferase 23 U/L (5-31); Bilirubin Total 0.4 mg/dL (0.0-1.0); Blood Urea Nitrogen 14 mg/dL (9-16); Carbon Dioxide 27 mmol/L (22-29); Chloride 106 mmol/L (96-108); Estimated Glomerular Filt Rate > 60; Glucose Random 76 mg/dL (60-115); Potassium 3.9 mmol/L (3.3-5.1); Sodium 139 mmol/L (135-145)
[2023-12-18 20:03] LABS: Anti-Centromere B Antibodies <1.0 NEG AI (<1.0 NEG)
[2023-12-21 12:24] LABS: Anti Nuclear Antibody Screen NEGATIVE (NEGATIVE)
== END 2023-12-15 15:00 | disposition home or self-care (01) ==
LOC: HO.CHCLDS 14:59
PROVIDERS: Visit Provider Internal Medicine
DX: I73.00 Raynaud's syndrome without gangrene (principal)
CPT/HCPCS: 36415; 80053; 86038; 86235

== ENCOUNTER 2024-01-04 14:21 | Outpatient (AMB) | payer MEDICAID, SELFPAY ==
[2024-01-04 14:23] VITALS: BP 120/72; PULSE 40; BMI 23.8
--- NOTE | 2024-01-04 14:23 | A.OFFVIS_ITS ---
Intake Vital Signs 01/04/24 14:23 Height 5 ft 7 in Weight 152 lb 1.903 oz BMI 23.8 BP 120/72 Blood Pressure Location Lt brachial Position Sitting Pulse 40 L Pulse Source Pulse Oximeter Intake Visit Reasons: r/s 01/02/24 3 mos followup Director Of Recreation Therapy Required: No Allergies No Known Allergies Allergy (Unknown, Verified 01/04/24 14:25) Medication List - Last Reconciled 01/04/24 by Cierra Daniel NP-C No Known Home Meds HPI r/s 01/02/24 3 mos followup HPI Details Tamanna is a 48-year-old female with past medical history of diabetes, obesity status post bariatric surgery with significant weight loss who recently had a hydrological technical officer procedure and was noted to have bradycardia with junctional escape beats. She was monitored overnight in the hospital and was noted to have a 4.5 second pause. There was concern for sinus node dysfunction. She has undergone a outpatient cardiac event monitor, exercise stress test, sleep study and EP eval. PPM was not indicated as of last visit. She now presents for follow up. Today she states that she has been feeling well since her last visit in August. She denies any excess fatigue, lightheadedness, presyncope, syncope, falls. 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 She has no concerning shortness of breath, no PND, orthopnea or edema. No chest discomfort at rest or with activity. She had previously lost a lot a weight and has a skin fold in her lower abdomen. She says she gets lots of fungal infections and bad odor from that area. She is hoping to have surgery to remove the excess skin in the near future. [facility] Medical History Obesity (BMI 30-39.9) History of abnormal cervical Pap smear Urge incontinence Depression Diabetes mellitus Surgical History H/O gastric bypass History of loop electrical excision procedure (LEEP) Family History Mother HIV (human immunodeficiency virus infection) Maternal Grandmother Diabetes mellitus Social History Alcohol intake: never Patient Tobacco Use Status: Never used Tobacco Second Hand Smoke Exposure: No service: No Gender identity: Female Female Reproductive History Menstrual Age of Menarche: 15 Review of Systems Const All systems reviewed & are unremarkable except as noted in HPI and below ENT Denies dizziness Card Denies chest pain, Denies chest pain at rest, Denies chest pain with activity, Denies rapid heart rate, Denies pedal edema, Denies edema, Denies leg edema, Denies lightheadedness, Denies palpitations, Denies dyspnea, Denies dyspnea on exertion and Denies orthopnea Resp Denies cough, Denies dyspnea and Denies dyspnea on exertion GI Denies hematochezia and Denies change in stool character Musc Denies abnormal gait, Denies limited range of motion, Denies muscle cramps, Denies muscle weakness, Denies numbness, Denies radiating pain into limb, Denies stiffness and Denies tingling Neuro Denies abnormal gait, Denies dizziness, Denies numbness and Denies tingling Endo Denies palpitations Physical Exam Vital Signs: Last Vital Signs Pulse 40 L 01/04/24 14:23 BP 120/72 01/04/24 14:23 BMI result Body Mass Index 23.8 Const General: cooperative, healthy appearing, comfortable and no acute distress Orientation/consciousness: patient oriented x3 HEENT Head: Yes normal to inspection Eyes Sclerae: sclerae normal Neck Neck: Yes normal visual inspection and Yes no JVD Carotids: normal carotid upstroke Chest Chest palpation & inspection: normal inspection of the chest Resp Effort & Inspection: normal respiratory effort Auscultation: clear to auscultation bilaterally, no crackles, no rales, no rhonchi and no wheezes Cardio Jugular venous distension: no JVD Rate: regular rate Rhythm: regular rhythm Heart sounds: S1 normal heart sound present, S2 normal heart sound present, no gallops, no murmurs and no rubs Peripheral pulses: Peripheral pulses 2+ throughout GI Inspection: Yes normal to inspection Skin General skin exam: no rashes or lesions noted Neuro General: patient oriented x3 Extrem General: Yes normal to inspection, No no pedal edema and No calf tenderness Psych Appearance: grossly normal Mental Status: mental status grossly normal Speech and movement: Normal speech and movement present Office Procedures EKG Details: Today, read by me, sinus bradycardia with nonspecific ST/ T wave abn, junctional escape beats, rate 38, QTc 403ms [id number], Complete Assessment & Plan Assessment & Plan (1) Bradycardia: Code(s): R00.1 - Bradycardia, unspecified Plan: Newer finding of sinus bradycardia with junctional escape beats, 06/2023. During hospital overnight admission she was noted to have a 4.5 second pause. No history presyncope, syncope. Lyme test, normal range, TSH 0.26, free T4 1.00. Cardiac event monitor worn for 11 days out of 30 showed sinus rhythm with average heart rate 59, heart rate range 32 to 120, one 3.5 second pause, other pauses of shorter duration during sleep. Exercise stress test done on 07/03/2023 showed exercise 9 minutes 37 seconds with no anginal or EKG changes, was able to achieve 82% of mphr. Sleep study recently done shows no sleep apnea. She was evaluated by , for EP. Patient did not warrant pacemaker at the time of his evaluation. Today she reports she has been feeling well since her last visit in August. She has no concerning symptoms to report. She denies fati lindsey, lightheadedness, presyncope, syncope. She reports good activity tolerance. EKG done in the office today shows sinus bradycardia with junctional escape beats, rate 38. Will order a Holter monitor for further evaluation. Informed her that she may need pacemaker going forward. She is reluctant as she is concerned about the scar. Plan to call her with Holter results and plan of care will then be determined. Will likely arrange follow-up with Dr. Zazueta. Avoid all rate slowing medications due to sinus node dysfunction. Signs and symptoms symptomatic bradycardia reviewed with her. Emergency care if ever needed for presyncope, syncope. Cardiology office visit to be determined post Holter monitor. (2) Sinus node dysfunction: Code(s): I49.5 - Sick sinus syndrome Plan: As above. (3) Marijuana smoker: Code(s): F12.90 - Cannabis use, unspecified, uncomplicated Plan: She tells me that she smokes marijuana every day and has since she was a teenager. She describes having bipolar disorder and does not take medications as she does not like how they make her feel. She uses the marijuana as medicine to control her bipolar symptoms. Notes indicate that she was instructed by Dr. zazueta to stop smoking marijuana. This was reinforced. (4) Weight loss: Code(s): R63.4 - Abnormal weight loss Plan: History of bariatric surgery. She is down 7 lb since last visit in July. (5) Preop cardiovascular exam: Code(s): Z01.810 - Encounter for preprocedural cardiovascular examination Plan: Preop for what sounds like skin removal surgery, abdominoplasty. She is unaware of the doctor's name however tells me the address is [address] [place] [address] in [place] [address]. Informed her that with her very slow heart rate elective procedures would not be recommended at this time. Will further discuss with her business process representative And make an addendum as needed. Plan Time spent on chart review, documentation, interview and assessment Orders: Orders ECG 3 day holter monitor Today R00.1 - Bradycardia, unspecified Coding Level of Care Code Est Pt Level 4 (95642) Diagnoses Bradycardia R00.1 Sinus node dysfunction I49.5 Marijuana smoker F12.90 Weight loss R63.4 Preop cardiovascular exam Z01.810 CPT Codes EKG - CPT: 24451-[id number], Complete ([id number]) Time Spent (min) 28
== END 2024-01-04 15:09 | disposition home or self-care (01) ==
PROVIDERS: PCP Internal Medicine; Visit Provider Nurse Practitioner Family
DX: I49.5 Sick sinus syndrome (principal); F12.90 Cannabis use, unspecified, uncomplicated; R63.4 Abnormal weight loss; Z01.810 Encounter for preprocedural cardiovascular examination
CPT/HCPCS: 93010; 99214

== ENCOUNTER → 2024-01-04 14:21 | Outpatient (BNVA) | payer MEDICAID, SELFPAY | PROVIDERS: PCP Internal Medicine; Visit Provider Nurse Practitioner Family | DX: Z01.810 Encounter for preprocedural cardiovascular examination (principal); R00.1 Bradycardia, unspecified; I49.5 Sick sinus syndrome; F12.90 Cannabis use, unspecified, uncomplicated; R63.4 Abnormal weight loss | CPT/HCPCS: 93005; 99212 ==

== ENCOUNTER → 2024-01-31 10:02 | Outpatient (REF) | payer MEDICAID, SELFPAY ==
--- NOTE | 2024-01-31 10:05 | HM_ITS ---
* Total monitoring time 3 days. * Underlying rhythm is sinus bradycardia with an average rate of 44/Min. * About 90% of the time, rate less than 60/Min. * There is evidence of junctional escape rhythm, mainly during sleep hours. * Occasional ventricular ectopy with a burden of 0.8%. Isolated beats with some couplets, bigeminy and trigeminy. * Occasional supraventricular ectopy. * No significant pauses or AV blocks. * Patient marker used once in association with sinus bradycardia and supraventricular ectopy. * No diary events. MTDD
== END ==
LOC: HO.CARD 10:02
PROVIDERS: PCP Internal Medicine; Visit Provider Nurse Practitioner Family
DX: R00.1 Bradycardia, unspecified (principal)
CPT/HCPCS: 93242

== ENCOUNTER → 2024-01-31 10:05 | Outpatient (BNV) | payer MEDICAID, SELFPAY | PROVIDERS: PCP Internal Medicine; Visit Provider Internal Medicine | DX: R00.1 Bradycardia, unspecified (principal) | CPT/HCPCS: 93244 ==

== ENCOUNTER 2024-02-16 14:18 | Outpatient (REF) | payer MEDICAID, SELFPAY ==
--- NOTE | ~2024-02-16 | MM_ITS ---
EXAMINATION: MM SCREENING DIGITAL BREAST TOMOSYNTHESIS, BILATERAL CLINICAL INFORMATION: Screening. Asymptomatic. COMPARISON: Mammography: This study is compared with prior exams dating back to 2018. TECHNIQUE: Digital breast tomosynthesis is performed in both the craniocaudal and mediolateral oblique views along with computer-aided detection (CAD). Synthesized 2D images are generated from the tomosynthesis. FINDINGS: There are scattered areas of fibroglandular density (ACR BI-RADS breast composition Category b). There are no significant masses, abnormal calcifications, or other abnormalities. The patient has lost weight since the prior examination from 2022 as evidence by decreased breast volume. MM/MM tomosynthesis screening BI IMPRESSION: No mammographic evidence of malignancy. ASSESSMENT: BI-RADS BI-RADS 1 - Negative RECOMMENDATION: Routine annual mammography screening. 1 year F/U This examination should not preclude the clinical evaluation of a suspicious palpable abnormality. This patient's information was entered into a reminder system with a target due date for their next mammogram.
== END 2024-02-16 14:19 | disposition home or self-care (01) ==
LOC: HO.MAMMO 14:18
PROVIDERS: PCP Internal Medicine; Visit Provider Internal Medicine
DX: Z12.31 Encounter for screening mammogram for malignant neoplasm of breast (principal)
CPT/HCPCS: 77063; 77067

== ENCOUNTER → 2024-02-16 14:45 | Outpatient (BNV) | payer MEDICAID, SELFPAY | PROVIDERS: PCP Internal Medicine; Visit Provider Radiology Diagnostic Radiology | DX: Z12.31 Encounter for screening mammogram for malignant neoplasm of breast (principal) | CPT/HCPCS: 77063; 77067 ==

== ENCOUNTER 2024-06-12 14:28 | Outpatient (REF) | payer MEDICAID, SELFPAY ==
[2024-06-13 05:56] LABS: CT PCR NOT DETECTED (Not Detect.); NG PCR NOT DETECTED (Not Detect.)
[2024-06-13 11:09] LABS: Bacterial Vaginosis PCR POSITIVE (Negative); Candida Group PCR NOT DETECTED (Not Detect); Candida glab krusei PCR NOT DETECTED (Not Detect); Trichomonas vaginalis PCR NOT DETECTED (Not Detect)
== END 2024-06-12 14:29 | disposition home or self-care (01) ==
LOC: HO.LAB 14:28
PROVIDERS: PCP Internal Medicine; Visit Provider Advanced Practice Midwife
DX: N89.8 Other specified noninflammatory disorders of vagina (principal); Z20.2 Contact with and (suspected) exposure to infections with a predominantly sexual mode of transmission
CPT/HCPCS: 0352U; 87491; 87591; 99396

== ENCOUNTER 2024-06-12 14:28 | Outpatient (AMB) | payer MEDICAID, SELFPAY ==
--- NOTE | 2024-06-12 14:30 | MHC.OFFVIS ---
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 She had seen MZ last year for these issues she had been treated 1st with terazosin all and then with clobetasol on questioning she admits that the 2nd cream did help but she does not have any cream anymore, but now she is still has some itching and she has taken to using gold Clemente powder externally and finds that helps. She had gastric bypass surgery last year and lost over 100 lb and she had her tummy tuck surgery 2 months ago and has healed very well and is happy with it she was surprised to learn that she gained 10 lb over the last month and she wants to be very careful not to gain anymore. 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 She says she is up-to-date on her mammograms. She is sexually active with her does not want to lose in but she does not have the urge to have sex anymore. [facility] Medical History (Updated 06/12/24 @ 15:58 by Keely Balderrama CNM) Obesity (BMI 30-39.9) History of abnormal cervical Pap smear Urge incontinence Depression Diabetes mellitus Surgical History H/O gastric bypass History of loop electrical excision procedure (LEEP) Family History Mother HIV (human immunodeficiency virus infection) Maternal Grandmother Diabetes mellitus Social History Alcohol intake: never Patient Tobacco Use Status: Never used Tobacco Second Hand Smoke Exposure: No service: No Gender identity: Female Female Reproductive History Menstrual Age of Menarche: 15 Duration of menses: 3-5 days control method: progestin IUCD Total pregnancies: 6 Full term: 5 Date of last pap smear: 03/08/23 (negative,2020,2019,negative) History of abnormal pap smear: Yes (hx,KHADIJAH,2019 LEEP) Date of Mammogram: 02/16/24 (negative) Physical Exam Vital Signs: Last Vital Signs BP 120/68 06/12/24 14:49 BMI result Body Mass Index 24.4 Const Other: Has scars from her surgeries. General: healthy appearing, comfortable, no acute distress, well developed and alert Nutritional Appearance: average body habitus Orientation/consciousness: patient oriented x3 Limitations: no limitations HEENT Head: Yes normocephalic Neck Neck: Yes normal visual inspection Chest Chest palpation & inspection: normal inspection of the chest Breast/axilla inspection: normal inspection of the breasts and normal inspection of the axillae Breast/axilla palpation: normal palpation of the breasts and normal palpation of the axillae Resp Effort & Inspection: normal respiratory effort GI Inspection: Yes normal to inspection, No Abdominal wall edema and No distended Palpation (GI): Soft to palpation and nontender General: Yes bladder normal to palpation External Female Exam: normal external appearance and normal appearance of the urethra Speculum Exam - Vagina: normal appearance of the vagina, normal palpation and normal vaginal discharge Speculum Exam - Cervix: normal appearance of the cervix, normal palpation and nontender Bimanual exam- vagina & uterus: normal bimanual exam, normal palpation, uterine size normal, bladder normal to palpation, consistency normal, normal palpation, uterine mobility normal, uterine shape normal, No Cervical tenderness present, non-tender and no cervical motion tenderness Bimanual Exam- Adnexa, other: normal adnexae, no masses, normal and No adnexal tenderness Neuro General: patient oriented x3 Results Reviewed Results Reviewed: Name: Tamanna Aburto Age/Sex: 47/F Attending: Keely Balderrama CNM : 1975 Submitted by: Keely Balderrama CNM Copies to: Wil Palmer MD MR #: [id number] Status: DEP REF Collected: 03/07/23 Location: [facility] Received: 03/08/23 Interpretation Satisfactory for evaluation. Coccobacilli consistent with shift in vaginal laura. Negative for intraepithelial lesion or malignancy. HPV mRNA E6/E7: NOT DETECTED This assay detects E6/E7 viral messenger RNA (mRNA) from 14 high-risk HPV types (16, 18, 31, 33, 35, 39, 45, 51, 52, 56, 58, 59, 66, 68) HPV testing performed by [facility], [place], [place]. See reference laboratory pion of the EMR for entire report. Clinical Information LMP: Mirena, no menses Previous PAP test: 07/01/21, WNL Material Received ThinPrep-Cervical Copies To Wil Palmer MD [address] [place] [address] Keely Balderrama [address] Jurado [address] [place] [address] [phone] Electronically Signed By: ALIYAH Knox (ASCP) 03/22/23 1315 The Pap Test is a screening procedure with the inherent possibility of both false negative and false positive results. Results should be interpreted in the context of historic and current clinical findings. Reliability of the Pap Test is enhanced by performing the test on a regular repetitive basis. Patient: Tamanna Aburto Age/Sex: 47/F MR#: [id number] Page 1 of 1 Assessment & Plan Assessment & Plan (1) IUD check up: Code(s): Z30.431 - Encounter for routine checking of intrauterine contraceptive device Category: Medical (2) Candidal vulvovaginitis: Comment: With significant bilateral eczema- resolved Code(s): B37.31 - Acute candidiasis of vulva and vagina Category: Medical (3) Well woman exam with routine gynecological exam: Code(s): Z01.419 - Encounter for gynecological examination (general) (routine) without abnormal findings Category: Medical (4) History of abnormal cervical Pap smear: Comment: hx KHADIJAH 2, LEEP 2019, and cone biopsy 2017 strings cut in 2017 procedure 06/30/21 pap= neg w neg hpv; 03/07/2023 Pap is negative with negative HPV positive coxa bacilli. Code(s): Z87.42 - Personal history of other diseases of the female genital tract Category: Medical (5) Obesity (BMI 30-39.9): Comment: Now status post gastric bypass surgery with weight loss; very happy and feels good. Has lost even more weight now and had cosmetic surgery since as well... Code(s): E66.9 - Obesity, unspecified Category: Medical (6) Vaginal itching: Comment: Was treated with clobetasol with some benefit in 2022 discussed possibility of lichen sclerosis which she says was discussed then as well. If this does not relieve with refill patient to see MZ for eval. Code(s): N89.8 - Other specified noninflammatory disorders of vagina Category: Medical Plan -----Discussed in this visit the following: healthy balanced diet, regular and consistent exercise, getting recommended health screens, doing the best she can for her particular health concerns, kegel exercises, pap smear screening and followup recommendations, mammography screening and SBE, normal changes in cycles in her life stage--- . Discussed her challenge with the vaginal itching. Previous the noted to be eczematous changes as well as possible Dianelys she had more relief from the clobetasol that was prescribed discussed that this same treatment as would be prescribed for lichen sclerosis which is also possibility is there is slight change in pigmentation at the clitoral area. If she does not get relief refill of the clobetasol then she be seeking further evaluation with glass selector again. Discussed vaginal dryness gary menopausal changes and decreased libido as well discussed using vaginal lubricants over the counter as well. She is very happy with her weight loss and changes after her bariatric and cosmetic surgery. She finds herself still thinking she to eat more what it is not that she is hungry. She does not want to gain weight back again and is going be more careful. Medications: Refilled clobetasol 0.05% Apply to the affected area twice a day for no more than 5 days 1 appl topical BID 5 days 15 grams 2RF Coding Level of Care Code Est Pt Prev Care 40-64y(39710) Diagnoses IUD check up Z30.431 Candidal vulvovaginitis B37.31 Well woman exam with routine gynecological exam Z01.419 History of abnormal cervical Pap smear Z87.42 Obesity (BMI 30-39.9) E66.9 Vaginal itching N89.8
[2024-06-12 14:49] VITALS: BP 120/68; BMI 24.4
== END 2024-06-12 16:09 | disposition home or self-care (01) ==
PROVIDERS: PCP Internal Medicine; Visit Provider Advanced Practice Midwife
DX: Z30.431 Encounter for routine checking of intrauterine contraceptive device (principal); B37.31 Acute candidiasis of vulva and vagina; Z01.419 Encounter for gynecological examination (general) (routine) without abnormal findings; Z87.42 Personal history of other diseases of the female genital tract; E66.9 Obesity, unspecified; N89.8 Other specified noninflammatory disorders of vagina
CPT/HCPCS: 99396

== ENCOUNTER 2025-02-21 14:30 | Outpatient (REF) | payer MEDICAID, SELFPAY ==
--- OUTSIDE RECORDS SUMMARY | 2025-02-21 14:32 | XMS_ITS | Encounter Summary ---
Author Organization [employer] Address [address] [place] [address] Care Team Providers Care Industrial Energy Engineer Name Role Phone Wil Palmer MD Primary Care Prov ider Encounter Details Date Type Department Care Team ([facility] st Contact Info) Description 02/20/2025 Telephone [facility] [address] [place], [place] [id number] Wil Palmer MD [address] [place] [address] Social History Tobacco Use Types Packs/Day Years Used Date Smoking Tobacco: Never Passive Smoke Exposure: Never Smokeless Tobacco: Never Depression Answer Date Recorded Patient Health Questionnaire-9 Score 4 07/04/2024 Patient Health Questionnaire-9 Score 4 07/04/2024 Last PHQ-9: Questionnaire Data Not on file 0 07/04/2024 Housing Stability Answer Date Recorded What is your housing situation today? I do not have housing (Staying with others, in a hotel, in a long-term, living outside on the street, on a beach, in a car, or in a park 11/27/[address] you li ve. Do you have problems with any of the following? None of the above 11/27/2023 Food Insecurity Answer Date Recorded Within the past 12 months, y ou worried that your food would run out before you got money to buy more: Never True 11/27/2023 Within the past 12 months,th e food you bought just didn't last and you didn't have enough money to get more: Never True 09/2024 Transportation Answer Date Recorded In the past 12 months, has l ack of transportation kept you from medical appts, meetings, work or from getting things needed for daily living? No 08/01/2023 Utilities Answer Date Recorded In the past 12 months, has t he electric, gas, oil or water company threatened to shut off services in your home? No 08/01/2023 Depression Answer Date Recorded Patient Health Questionnaire-2 Score 4 07/04/2024 Comments Unknown Sex and Gender Information Value Date Recorded Sex Assigned at Female 08/15/2022 10:14 AM EDT Legal Sex Female 10:14 AM EDT Gender Identity Choose not to disclose 10:14 AM EDT Sexual Orientation Choose not to disclose 2021 10:14 AM EDT documented as of this encounter Miscellaneous Notes * Telephone Encounter - Susanne Dougherty [place] - 02/20/2025 3:33 PM EDT Called pt 3x for tele appt today with pcp. Pt didn't answer, lvm to call office back. documented in this encounter Plan of Treatment Upcoming Encounters Date Type Department Care Team (Late st Contact Info) Description 2025 8:30 AM EDT Office Visit [facility] [address] [place] [address] Wil Palmer MD [address] [place] [address] documented as of this encounter Visit Diagnoses Not on filedocumented in this encounter Additional Health Concerns Assessment Noted Time PHQ-9 Depression Total Score: 4 07/04/20 24 2:56 PM EDT documented as of this encounter Care Teams Industrial Energy Engineer Relationship Specialty Start Date End Date Wil Palmer MD [address] [place] [address] PCP - General Internal Medicine 05/13/19 documented as of this encounter
--- OUTSIDE RECORDS SUMMARY | 2025-02-21 14:32 | XMS_ITS | Encounter Summary ---
Author Organization [employer] Address [address] [facility] 7t [place] [address] Care Team Providers Care Fire Safety Director Name Role Phone Wil Palmer MD Primary Care Prov ider Encounter Details Date Type Department Care Team (Latest Contact Info) Description 02/20/2025 Travel Social History Tobacco Use Types Packs/Day Years [...] with others, in a hotel, in a longterm, living outside on the street, on a [...] AM EDT documented as of this encounter Plan of Treatment Upcoming Encounters Date Type Department Care Team (Late st Contact Info) Description 2025 8:30 AM EDT Office Visit [facility] MED [facility] PEDS [address] [place] [address] Wil Palmer MD [address] [place] [address] documented as of this encounter Visit Diagnoses Not on filedocumented in this encounter Additional Health Concerns Assessment Noted Time PHQ-9 Depression Total Score: 4 07/04/20 24 2:56 PM EDT documented as of this encounter Care Teams Fire Safety Director Relationship Specialty Start Date End Date Wil Palmer MD [address] [place] [address] PCP - General Internal Medicine 05/13/19 documented as of this encounter
--- OUTSIDE RECORDS SUMMARY | 2025-02-21 14:32 | XMS_ITS | Clinical Summary ---
Author Organization [employer] Address [address] [facility] 7t [place] [address] Care Team Providers Care Set Making Machine Operator Name Role Phone Wil Palmer MD Primary Care Prov ider Allergies No known active allergies Medications Lancets 33G misc Check blood sugar twice a day Active Levonorgestrel (Mirena, 52 MG,) 20 MCG/DAY intrauterine device Insert 52 mg into the vagina. 12/22/19 12 Active sertraline (Zoloft) 50 MG tablet Take 1 tablet (50 mg) by mouth Once per day. 30 tablet 2 04/10/20 24 Active hydrOXYzine HCl (Atarax) 25 MG tablet Take 1 tablet (25 mg) by mouth 4 times daily. 90 tablet 04/10/20 24 Active naproxen (Naprosyn) 500 MG tabletIndication s:Muscle spasm TAKE 1 TABLET BY MOUTH TWICE A DAY 30 tablet 04/12/20 24 Active Blood Pressure Monitoring (Omron 3 Series BP Monitor) device 1 kit Once per day. 1 each 07/04/20 24 Active amLODIPine (Norvasc) 5 MG tabletIndication s:Essential hypertension Take 1 tablet (5 mg) by mouth Once per day. 90 tablet 3 08/31/20 24 025 Active celecoxib (CeleBREX) 200 MG capsuleIndicatio ns:Chest wall pain Take 1 capsule (200 mg) by mouth 2 times daily. 20 capsule 01/24/20 25 025 Active doxepin (SINEquan) 25 MG capsule TAKE 1 CAPSULE BY MOUTH EVERYDAY AT BEDTIME 30 capsule 01/28/20 25 Active doxepin (SINEquan) 25 MG capsule TAKE 1 CAPSULE BY MOUTH EVERYDAY AT BEDTIME 30 capsule 12/31/19 25 025 Discontinued Active Problems Problem Noted Date Diagnosed Date Urticarial rash 01/03/2024 Assessment & Plan (01/04/2024 2:34 AM EDT): Patient was diagnosed with scabies and was prescribed prednisone 20 mg for itchiness and permethrin. If rash doesn't resolve in a week she was advised to return. 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 Assessment & Plan (04/10/2024 4:41 PM EDT): Patient underwent surgery sucesfully, was admitted for breadycardia after procedure, she was discharged yesterday, has remained stable and asymptomatic Assessment & Plan (11/27/2023 4:05 PM EST): Will refer to plastic surgery for evaluation Tinea pedis of both feet 07/26/2023 Assessment & Plan (07/26/2023 8:09 PM EDT): Will order clotrimazole, told to maintain feet dry, Screening for colon cancer 02/12/2023 Assessment & Plan (02/12/2023 9:50 PM EDT): Will refer to GI for screening colonoscopy Macromastia 02/12/2023 Assessment & Plan (02/12/2023 9:53 PM EDT): Will refer to plastic surgery, she has tried PT previously without improvement for her back pain Disorder of nail 12/11/2018 Class 1 obesity 12/11/2018 Tinea pedis 02/19/2018 HTN (hypertension) 01/08/2018 Assessment & Plan (07/08/2024 10:16 AM EDT): Patient could not provide bp logs, will send new bp machine, told bp <140/90, continue amlodipine 5mg Assessment & Plan (04/13/2023 9:23 AM EDT): Controlled, on losartan 25mg, reinforced low sodium diet and exercise as tolerated, continue weight loss, daily bp monitoring. Assessment & Plan (02/12/2023 9:49 PM EDT): Controlled, she underwent sleeve gastric bypass, reinforced low sodium diet and exercise as tolerated, follow up in 3 months Assessment & Plan (10/07/2022 4:05 PM EST): Not at target, will start on losartan 25mg, keep a bp log, reinforced low sodium diet and exercise as tolerated, follow up in 1 month Depressive disorder 03/09/2012 Assessment & Plan (04/10/2024 4:39 PM EDT): No suicidal/homicidal ideas, continue sertraline, will follow up in 3 months Assessment & Plan (01/01/2024 3:18 PM EDT): No suicidal/homicidal ideas, on sertraline, she has follow up with therapist and psych, no changes will be made Assessment & Plan (11/27/2023 4:03 PM EST): Followed by therapist, will add sertraline, no suicidal/homicidal ideas Resolved Problems Problem Noted Date Diagnosed Date Resolved Date Diabetes mellitus 03/09/2012 11/27/2023 Assessment & Plan (11/27/2023 4:04 PM EST): Resolved, will continue monitoring Assessment & Plan (07/26/2023 8:08 PM EDT): Controlled, patient Is off medications last A1c was 4.9%, no changes will be made, reinforced importance of diet. Assessment & Plan (04/13/2023 9:26 AM EDT): On metformin, today FBS was 90, continue she has lost 12lbs since last visit, reinforced low carb/no sugar diet, Eye exam due, she will make the appointment Assessment & Plan (02/12/2023 9:49 PM EDT): Improved, she is losing weight, continue metformin, will reevaluate in 3 months Assessment & Plan (10/07/2022 4:06 PM EST): Improved, will increase trulicity to 1.5mg, told to discontinue glipizide and continue with metformin, keep dxt log, follow up in 1 month Encounters Date Type Department Care Team Description 02/20/2025 Telephone [facility] MED & PEDS [address] [place], [place] [phone] Wil Palmer MD 02/20/2025 Travel 01/31/2025 Telephone [facility] OPTOMETRY [address] [place] [address] Ashli Giang, OD 01/27/2025 Refill [facility] MED [facility] PEDS [address] [place], [place] [phone] Wil Palmer MD 01/23/2025 3:30 PM EDT Office Visit [facility] [address] [place], [place] [phone] Teresita Alaniz MD Chest wall pain (Primary Dx) 01/23/2025 Travel 01/21/2025 Telephone [facility] MEDICINE [address] [place] [address] Wil Palmer MD Nurse Triage 12/29/2024 Refill [facility] MED [facility] PED[facility] [address] [place], [place] [phone] Wil Palmer MD 12/27/2024 Population Health Risk Score [facility] ([facility]) Department [address] [place] [phone] Provider, Population Health Generic 12/11/2024 2:45 PM EST Clinical Support [facility] [address] [place] [address] Leslye Schafer RN Hypertension, unspecified type [I10] 12/11/2024 Travel 12/04/2024 9:20 AM EST Office Visit [facility] WALK[facility]IN [facility] [address] [place] [address] Jordi Aguilar MD Blurry vision, bilateral (Primary Dx); Hypertension, unspecified type; Numbness of fingers of both hands 12/03/2024 Telephone [facility] MED & PEDS [address] [place] [address] Wil Palmer MD Nurse Triage from Last 3 Months Immunizations Name Administration Dates Next Due Hep B, adult 06/10/2008 Influenza, Split (incl. purified surface antigen ) 07/02/2013 Pneumococcal Polysaccharide PPSV23 06/25/2018 TD (adult), 2 Lf tetanus tox oid, preservative free, adsorbed 01/24/2002 Tdap 03/06/2014 Social History Tobacco Use Types Packs/Day Years Used Date Smoking Tobacco: Never Passive Smoke Exposure: Never Smokeless Tobacco: Never Tobacco Cessation:Counseling Given: Not Answered Depression Answer Date Recorded Patient Health Questionnaire-9 Score 4 07/04/2024 Patient Health Questionnaire-9 Score 4 07/04/2024 Last PHQ-9: Questionnaire Data Not on file 0 07/04/2024 Housing Stability Answer Date Recorded What is your housing situation today? I do not have housing (Staying with others, in a hotel, in a retirement, living outside on the street, on a [...] not to disclose 2021 10:14 AM EDT Last Filed Vital Signs Vital Sign Reading Time Taken Comments Blood Pressure 121/71 01/23/2025 3:01 PM EDT Pulse 34 01/23/2025 3:01 PM EDT Temperature 36.7 ??C (98 ??F) 01/23/2025 3:01 PM EDT Respiratory Rate 20 01/23/2025 3:01 PM EDT Oxygen Saturation 94% 01/23/2025 3:01 PM EDT Inhaled Oxygen Concentration - - Weight 69.9 kg (154 lb) 01/23/2025 3:01 PM EDT Height 170.2 cm (5' 7 ) 01/23/2025 3:01 PM EDT Body Mass Index 24.12 01/23/2025 3:01 PM EDT Plan of Treatment Upcoming Encounters Date Type Department Care Team ([facility] st Contact Info) Description 2025 8:30 AM EDT Office Visit [facility] PEDS [address] [place] [address] ChanWil Segovia MD [address] [place] [address] Health Maintenance Due Date Last Done Comments CT Colonography 1975 Colonoscopy 1977 Colorectal Cancer Screening 1975 FIT DNA/Cologuard 1977 FIT 1975 FOBT 1975 Sigmoidoscopy 1977 Alcohol/Substance Use Screening 1989 Family Planning (PISQ) 1992 Hepatitis B Vaccines (2 of 3 - 19+ 3-dose series) 07/08/2008 06/10/2008 DTaP/Tdap/Td Vaccines (2 - Td or Tdap) 03/06/2024 03/06/2014, 01/24/2002 COVID-19 Vaccine ( - 2023- season) 2024 Influenza Vaccine (#1) 2024 07/02/2013 SDOH Screening 11/27/2024 11/27/2023 Depression Screening 07/04/2025 07/04/2024, 07/04/20 Diabetes: Hemoglobin A1C 12/04/2025 025, 04/08/2024, 11/27/2023, Additional history exists Tobacco Screening 01/23/2026 01/23/2025 Mammogram 02/15/2026 02/16/2024, 03/0 03/2023, 12/19/2022, Additional history exists Pap Smear 03/07/2026 03/07/2023 Zoster Vaccines (1 of 2) 2027 Cervical Cancer Screening 03/07/2028 HPV/Cotest 03/07/2028 03/07/2023 Lipid Panel 07/26/2028 07/26/2023, 04/16, 10/26/2021, Additional history exists RSV Patients and Patients Aged 60 years or older (1 - 1-dose 75+ series) 2052 Pneumococcal Vaccine: Pediatrics (0 to 5 Years) and At-Risk Patients (6 to 49) Years) Aged Out 06/25/2018 No longer eligible based on patient's age to complete this topic HIV Screening Completed 10/26/2021 Hepatitis C Screening Completed 05/01/2023, 022 HIB Vaccines Aged Out No longer eligi ble based on patient's age to complete this topic HPV Vaccines Aged Out No longer eligi ble based on patient's age to complete this topic Hepatitis A Vaccines Aged Out No long er eligible based on patient's age to complete this topic IPV Vaccines Aged Out No longer eligi ble based on patient's age to complete this topic Meningococcal Vaccine Aged Out No michael krissy eligible based on patient's age to complete this topic RSV under 20 months Aged Out No longe r eligible based on patient's age to complete this topic Rotavirus Vaccines Aged Out No longer eligible based on patient's age to complete this topic Procedures Procedure Name Priority Date/Time Associated Diagnosis Comments POCT GLYCATED HEMOGLOBIN, TOTAL Routine 12/04/2024 9:50 AM EST Blurry vision, bilateral POCT GLUCOSE Routine 12/04/2024 9:50 AM EST Blurry vision, bilateral BI MAMMOGRAM SCREENING TOMOSYNTHESIS BILATERAL Routine 02/16/2024 2:45 PM EDT LIPID PANEL, STANDARD Routine 07/26/2023 3:15 PM EDT Type 2 diabetes mellitus with hyperglycemia, without long-term current use of insulin (CMS/HCC) HEPATITIS C VIRAL RNA, QUANTITATIVE, REAL-TIME PCR Routine 05/01/2023 12:14 PM EDT Type 2 diabetes mellitus with hyperglycemia, without long-term current use of insulin (CMS/HCC) HPV MRNA E6/E7 REFLEX TO HPV 16, 18/45 Routine 03/07/2023 3:30 PM EDT PAP SMEAR Routine 03/07/2023 3:30 PM EDT HIV 1/2 ANTIGEN/ANTIBODY, FOURTH GENERATION W/RFL Routine 10/26/2021 11:52 AM EST from Last 3 Months or Most Recently Relevant to Health Maintenance Results * POCT HGB A1C (12/04/2024 9:50 AM EST) Hemoglobin A1C 5.8 4.0 - 6.0 % Blood 12/04/2024 9:50 AM EST us Jordi Aguilar MD POINT OF CARE TEST ENTER/EDIT OR DERABLES Final Result * POCT glucose manually resulted (12/04/2024 9:50 AM EST) Glucose Blood, POC 94 60 - 200 mg/dL Blood Capillary blood specimen / Unknown 12/04/2024 9:50 AM EST us Jordi Aguilar MD POINT OF CARE TEST ENTER/EDIT OR DERABLES Final Result * BI Mammogram Screening Tomosynthesis Bilateral (02/16/2024 2:45 PM EDT) Anatomical Region Laterality Modality Breast Bilateral Mammography 02/16/2024 2:45 PM EDT Narrative 03/18/2024 8:07 AM EDT ? [facility] ? [address] ?[place] [address] ? Mammography Report ? Signed ? Patient: Aburto,Tamanna ?MR#: [id number] ?? 202 ? : 1975 ?Acct:[id number] ? Age/Sex: 48 / F ?ADM Date: 02/16/24 ? Loc: HO.MAMMO ? Attending Dr: Wil Thompson MD ? Ordering Physician: Wil Palmer MD ?Res ?? ults: 1Negative ? Date of Service: 02/16/24 ?Follow Up: 1 Year From Orig ?? inal Mammogram ? Procedure(s): MM tomosynthesis screening BI ?? Accession Number(s): [id number] ? cc: Teresita Alaniz MD; Wil Palmer MD ? EXAMINATION: ?? MM SCREENING DIGITAL BREAST TOMOSYNTHESIS, BILATERAL ? CLINICAL INFORMATION: ? Screening. Asymptomatic. ? COMPARISON: ?? Mammography: This study is compared with prior exams dating back to ?? 2018. ? TECHNIQUE: ?? Digital breast tomosynthesis is performed in both the craniocaudal and ?? mediolateral oblique views along with computer-aided detection (CAD). ?? Synthesized 2D images are generated from the tomosynthesis. ? FINDINGS: ?? There are scattered areas of fibroglandular density (ACR BI-RADS breast ?? composition Category b). ? There are no significant masses, abnormal calcifications, or other ?? abnormalities. ?? The patient has lost weight since the prior examination from 2022 as ?? evidence by decreased breast volume. ? MM/MM tomosynthesis screening BI ?? IMPRESSION: ?? No mammographic evidence of malignancy. ? ASSESSMENT: ? BI-RADS BI-RADS 1 - Negative ? RECOMMENDATION: ?? Routine annual mammography screening. ? 1 year F/U ? This examination should not preclude the clinical evaluation of a ?? suspicious palpable abnormality. ? This patient's information was entered into a reminder system with a ?? target due date for their next mammogram. ? Dictated By: ?Tamara Thomas MD ? Signed By: ?<Electronically signed by Tamara Thomas MD in OV> ? 03/18/24 08 ? DD/ 1445 ? TD/TT: ? Pcat Instructor: ? Procedure Note Sebastian Ricketts - 03/18/2024 [place] [facility] [address] [place], [place] [address] Mammography Report Signed Patient: Sudeep Aburto#: [id number] : 1975Acct:[id number] Age/Sex: 48 / FADM Date: 02/16/24 Loc: HO.MAMMO Attending Dr: Wil Thompson MD Ordering Physician: Wil Palmer ults: 1Negative Date of Service: 02/16/24Follow Up: 1 Year From Orig inal Mammogram Procedure(s): MM tomosynthesis screening BI Accession Number(s): [id number] cc: Teresita Alaniz MD; Wil Palmer MD EXAMINATION: MM SCREENING DIGITAL BREAST TOMOSYNTHESIS, BILATERAL CLINICAL INFORMATION: Screening. Asymptomatic. COMPARISON: Mammography: This study is compared with prior exams dating back to 2018. TECHNIQUE: Digital breast tomosynthesis is performed in both the craniocaudal and mediolateral oblique views along with computer-aided detection (CAD). Synthesized 2D images are generated from the tomosynthesis. FINDINGS: There are scattered areas of fibroglandular density (ACR BI-RADS breast composition Category b). There are no significant masses, abnormal calcifications, or other abnormalities. The patient has lost weight since the prior examination from 2022 as evidence by decreased breast volume. MM/MM tomosynthesis screening BI IMPRESSION: No mammographic evidence of malignancy. ASSESSMENT: BI-RADS BI-RADS 1 - Negative RECOMMENDATION: Routine annual mammography screening. 1 year F/U This examination should not preclude the clinical evaluation of a suspicious palpable abnormality. This patient's information was entered into a reminder system with a target due date for their next mammogram. Dictated By: Tamara Thomas MD Signed By: <Electronically signed by Tamara Thomas MD in OV> 03/18/24 0803 DD/ 1445 TD/TT: Pcat Instructor: Wil Thompson MD IM BI PROCEDURES Final Result * (ABNORMAL) Lipid Panel, Standard (07/26/2023 3:15 PM EDT) Triglycerides 51 <150 mg/dL [facility] Comment:Desirable Triglyceri de: less than 150 mg/dLBorderline High Triglyceride 150-199 mg/dLHigh Triglyceride: 200-499 mg/dLVery High Triglyceride: greater than or equal to 5OO mg/dL Cholesterol 124 <200 mg/dL [facility] Comment:Desirable Cholestero l: less than 200 mg/dLBorderline High Cholesterol: 200-239 mg/dLHigh Cholesterol: greater than 239 mg/dL LDL Cholesterol Calculated 74 <100 mg/dL [facility] Comment:Desirable LDL: less than 100 mg/dLNear Optimal/Above Optimal LDL: 110- 129 mg/dLBorderline High LDL: 130-159 mg/dLHigh LDL: 160-189 mg/dLVery High LDL: greater than or equal to 190 mg/dL HDL Cholesterol 40(L) >40 mg/dL [facility] Comment:Desirable HDL: great er than 40 mg/dL Note: This HDL assay may give artificially low results in patients with liver disease. Blood Venous blood specimen / Unknown 07/26/2023 3:15 PM EDT 07/26/2023 5:28 PM EDT Wil Thompson MD LAB BLOOD ORDERABL ES Final Result Performing Organization Address [facility] Co de Phone Number [facility] [address] [place] [phone] * Hepatitis C Viral RNA, Quantitative, Real-Time PCR (05/01/2023 12:14 PM EDT) Pathologist [facility] Hepatitis C Viral Load <15 NOT DETECTED NOT DETECTED IU/mL [facility] HCV Log PCR <1.18 NOT DETECTED NOT DETECTED Log IU/mL [facility] Comment:This test was perfor med using Real-Time Polymerase ChainReaction.Reportable Range: 15 IU/mL to 100,000,000 IU/mL(1.18 Log IU/mL to 8.00 Log IU/mL).The analytical performance characteristics of thisassay have been determined by [employer].The modifications have not been cleared or approved bythe FDA. This assay has been validated pursuant to theCLIA regulations and is used for clinical purposes.For more information on this test, go to:http://education.Protek-dor/faq/WKA86z2(This link is being provided for informational/educational purposes only.)THIS TEST WAS PERFORMED AT:[email or web address] [place] [phone] MACDONALD MD Blood 05/01/2023 12:1 4 PM EDT 05/01/2023 2:45 PM EDT [facility] LAB BLOOD ORDERABLES Final Re sult Performing Organization Address [facility]/ZIP Co de Phone Number [facility] [address] [place] [address] [phone] * HPV mRNA E6/E7 w/Reflex to HPV Genotypes 16, 18/45 (03/07/2023 3:30 PM EDT) [facility] [address] [facility] HPV nRNA E6/E7 Not Detected Not Detected [facility] Comment:Methodology: Transcr iption-Mediated AmplificationThis assay detects E6/E7 viral messenger RNA (mRNA) from 14high-risk HPV types (16,18,31,33,35,39,45,51,52,56,58,59,66,68).Cervical sources are required for HPV testing.If a vaginal source from a patient who has had atotal hysterectomy with removal of cervix wassubmitted, please contact the testing laboratoryfor alternative testing options.For additional information, please refer tohttp://education.Protek-dor/faq/CPJ360r3(This link if provided for information/educational purposes only.)THIS TEST WAS PERFORMED AT:[email or web address] [place] [phone] MACDONALD MD HPV mRNA E6/E7 [facility] HPV 16 RNA [facility] HPV 18/45 RNA [facility] 03/07/2023 3:30 PM EDT 03/08/2023 11:25 AM EDT [facility] External Provider LAB CYT OLOGY ORDERABLES Final Result [facility] [address] [place] [phone] * Pap Smear (03/07/2023 3:30 PM EDT) 03/07/2023 3:30 PM EDT 03/08/2023 11:25 AM EDT Narrative [facility] - 03/22/2023 1:15 PM EDT ----- ------- Name: Noreen Aburtotza ?Age/Sex: 47/F ? : 1975 Unit#: [id number] ?? Attend Dr: TacosKeely BEBO ?Re03/07/23 ?Status: DEP REF ? Location: HO.LNP ?Disch: ? ----- ------- SPEC : [id number] ? RECD: 03/08/23 ? STATUS: ??SOUT ? REQ NUM: [id number] ? COLLEEN: 03/07/23-1530 ? SUBM DR: Keely Balderrama CNM ? ENTERED: ??03/08/23-1302 ?SP TYPE: Pap Smr ?OTHR DR: Wil Palmer MD ORDERED: ??Pap Smear ? Interpretation ?? Satisfactory for evaluation. ?? Coccobacilli consistent with shift in vaginal laura. ?? Negative for intraepithelial lesion or malignancy. ?HPV mRNA E6/E7: ?NOT DETECTED ? This assay detects E6/E7 viral messenger RNA (mRNA) from 14 high-risk HPV types (16, 18, ?? 31, 33, 35, 39, 45, 51, 52, 56, 58, 59, 66, 68) ?? HPV testing performed by [employer], [place], [place]. ??See reference laboratory ?? pion of the EMR for entire report. ?Clinical Information LMP: Mirena, no menses Previous PAP test: 07/01/21, WNL ? Material Received ?? ThinPrep-Cervical Copies To: ?? Wil Palmer MD ?? [address] ?? [place] [address] ?? [phone] ?? Keely Balderrama CNM ?? [address] ?? [place] [address] ?? [phone] ----- ------- Signed (signature on file) ALIYAH Knox (ASCP) 03/22/23 1315 ? ----- ------- ? END OF REPORT ? [facility] External Provider LAB CYT OLOGY ORDERABLES Final Result [facility] [address] [place] [address] [phone] * HIV 1/2 ANTIGEN/ANTIBODY,FOURTH GENERATION W/RFL (10/26/2021 11:52 AM EST) HIV-1/2 ANTIGEN AND ANTIBODIES, 4TH GENERATION W/ REFLEX NON-REACT CECI NON-REACT CECI [facility] Comment: HIV-1 antigen and HIV-1/HIV-2 antibodies were not detected. There is no laboratory evidence of HIV infection. ?? PLEASE NOTE: This information has been disclosed to you from records whose confidentiality may be protected by state law. ??If your state requires such protection, then the state law prohibits you from making any further disclosure of the information without the specific written consent of the person to whom it pertains, or as otherwise permitted by law. A general authorization for the release of medical or other information is NOT sufficient for this purpose. ? For additional information please refer to http://education.Protek-dor/faq/NYI006 (This link is being provided for informational/ educational purposes only.) ? The performance of this assay has not been clinically validated in patients less than 2 years old. ?? 10/26/2021 11:5 2 AM EST Wil Thompson MD LAB BLOOD ORDERABL ES Final Result [facility] [address] from Last 3 Months or Most Recently Relevant to Health Maintenance Insurance [facility] C3 Care Teams Set Making Machine Operator Relationship Specialty Start Date End Date Wil Palmer MD [address] [place] [phone] PCP - General Internal Medicine 05/13/19
--- OUTSIDE RECORDS SUMMARY | 2025-02-21 14:32 | XMS_ITS | Clinical Summary ---
Author Organization [facility] Address [address] [place] [address] Phone Care Team Providers Care Investment Consultant Name Role Phone Wil Palmer Primary Care Provide r Allergies No known active allergies Medications cholecalciferol (VITAMIN D-3) 1,250 mcg (50,000 unit) capsule Take 1 Capsule by mouth once a week. 03/15/20 24 Active metFORMIN (GLUCOPHAGE) 1,000 mg tablet Take 1 Tab by mouth 2 times daily (with meals). Morning & evening meals Active miconazole nitrate 2 % ointment Apply 1 Applicator topically 2 times daily. Between toes in morning and evening Active ondansetron ODT (ZOFRAN-ODT) 4 mg disintegrating tablet Ondansetron 4 MG FILM Take 4 mg by mouth every 8 hours as needed (nausea). 10/18/19 23 Active simethicone (MYLICON) 80 mg chewable tablet CHEW 1 TABLET BY MOUTH EVERY 6 HOURS NEEDED FOR FLATULENCE 06/21/20 23 Active wheat dextrin 3 gram/4 gram powder Take 4 g by mouth daily. 10/18/19 23 Active ergocalciferol (VITAMIN D-2) 1,250 mcg (50,000 unit) capsuleIndications :Vitamin D deficiency Take 1 capsule (50,000 Units total) by mouth 1 (one) time per week for 8 doses. 8 each 02/06/20 25 025 Active Active Problems Problem Noted Date Diagnosed Date Class 1 obesity due to exces s calories with serious comorbidity and body mass index (BMI) of 33.0 to 33.9 in adult 10/14/2024 Depression 03/29/2018 Hypertension 03/29/2018 Tinea pedis 03/29/2018 Overview (10/14/2024): Both feet Type 2 diabetes mellitus wit hout complication ([facility] V24, [facility] V28) 03/29/2018 Encounters Date Type Department Care Team Description 12/24/2024 1:00 PM EDT Office Visit Bariatric Surgery - [address] [place] [address] Rajiv Garnett MD Postoperative intestinal malabsorption (Primary Dx) from Last 3 Months Medical History Medical History Date Comments Depression 03/29/2018 DX:Depression Type 2 diabetes mellitus wit hout complication ([facility] V24, [facility] V28) 03/29/2018 DX:Type 2 diabetes mellitus without complication (HCC) Hypertension 03/29/2018 DX:Hypertension Tinea pedis 03/29/2018 DX:Tinea pedis; COMMENT: Both feet Social History Tobacco Use Types Packs/Day Years Used Date Smoking Tobacco: Never Alcohol Use Standard Drinks/Week Comments Never 0 (1 standard drink = 0.6 oz pur e alcohol) Comments Unknown Sex and Gender Information Value Date Recorded Sex Assigned at Not on file Legal Sex Female 10:51 AM EST Gender Identity Not on file Sexual Orientation Not on file Obstetrics History Last Filed Vital Signs Vital Sign Reading Time Taken Comments Blood Pressure 122/76 12/24/2024 1:11 PM EDT Pulse 38 12/24/2024 1:11 PM EDT Temperature 36.6 ??C (97.8 ??F) 12/24/2024 1:11 PM ED T Respiratory Rate 14 09/27/2024 9:27 PM EST Oxygen Saturation 99% 09/27/2024 9:27 PM EST Inhaled Oxygen Concentration - - Weight 70.8 kg (156 lb) 12/24/2024 1:11 PM EDT Height 170.2 cm (5' 7 ) 12/24/2024 1:11 PM EDT Body Mass Index 24.43 12/24/2024 1:11 PM EDT Plan of Treatment Health Maintenance Due Date Last Done Comments Breast Cancer Screening 1977 Diabetes: Annual Foot Exam 1987 Diabetes: Annual Retina Eye Exam 1987 Hepatitis B Vaccines (2 of 3 - 19+ 3-dose series) 07/08/2008 06/10/2008 Pneumococcal Vaccine: Pediatrics (0 to 5 Years) and At-Risk Patients (6 to 64 Years) (2 of 2 - PCV) 06/25/2019 06/25/2018 Colorectal Cancer Screening: Colonoscopy 09/19/2022 Hepatitis C Screening 09/19/2022 Social Influencers of Health Screening 09/19/2022 Diabetes: Annual Urine Albumin-Creatinine Ratio (uACR) 09/29/2022 DTaP,Tdap,and Td Vaccines (3 - Td or Tdap) 03/06/2024 03/06/2014, 01/24/2002 COVID-19 Vaccine ( - 2023-2 5 season) 2024 Diabetes: Blood Sugar Contro l Test (HGBA1C) 06/03/2025 12/04/2024, 11/27/2023, 02/15/2022 Influenza Vaccine (Season Ended) 2025 07/02/2013 Depression Screening 07/04/2025 07/04/2024 Diabetes: Annual GFR (Glomerular Filtration Rate) 09/27/2025 09/27/2024, 04/08/2024, 04/04/2023 Hypertension/CHF/CAD Annual BMP Blood Test 09/27/2025 09/27/2024, 04/08/2024, 04/04/2023 Cervical Cancer Screening: P ap Smear 03/07/2026 03/07/2023 Cholesterol Screening (Lipid Panel) 07/26/2028 07/26/2023, 02/15/2022 HIV Screening Completed 10/26/2021 HIB Vaccines Aged Out No longer eligi [...] on patient's age to complete this topic MMR Vaccines Aged Out No longer eligi ble based on patient's age to complete this topic Meningococcal ACWY Vaccine Aged Out N o longer eligible based on patient's age to complete this topic Meningococcal B Vaccine Aged Out No l onger eligible based on patient's age to complete this topic RSV Immunization Patients Under 20 months Aged Out No longer eligible b ased on patient's age to complete this topic Varicella Vaccines Aged Out No longer eligible based on patient's age to complete this topic Procedures Procedure Name Priority Date/Time Associated Diagnosis Comments ZINC Routine 02/03/2025 12:20 PM EDT Postoperative intestinal malabsorption VITAMIN D 25 HYDROXY Routine 02/03/2025 12:20 PM EDT Postoperative intestinal malabsorption VITAMIN B6 Routine 02/03/2025 12:20 PM EDT Postoperative intestinal malabsorption VITAMIN B12 Routine 02/03/2025 12:20 PM EDT Postoperative intestinal malabsorption VITAMIN B1 Routine 02/03/2025 12:20 PM EDT Postoperative intestinal malabsorption VITAMIN A Routine 02/03/2025 12:20 PM EDT Postoperative intestinal malabsorption SELENIUM SERUM Routine 02/03/2025 12:20 PM EDT Postoperative intestinal malabsorption PARATHYROID HORMONE INTACT Routine 02/03/2025 12:20 PM EDT Postoperative intestinal malabsorption IRON AND TIBC Routine 02/03/2025 12:20 PM EDT Postoperative intestinal malabsorption FOLATE Routine 02/03/2025 12:20 PM EDT Postoperative intestinal malabsorption COPPER, SERUM Routine 02/03/2025 12:20 PM EDT Postoperative intestinal malabsorption CALCIUM Routine 02/03/2025 12:20 PM EDT Postoperative intestinal malabsorption ALBUMIN Routine 02/03/2025 12:20 PM EDT Postoperative intestinal malabsorption COMPREHENSIVE METABOLIC PANEL STAT 09/27/2024 9:48 PM EST HEMOGLOBIN A1C Routine 02/15/2022 LIPID PANEL Routine 02/15/2022 from Last 3 Months or Most Recently Relevant to Health Maintenance Results * (ABNORMAL) Iron and TIBC (02/03/2025 12:20 PM EDT) Iron 47 40 - 150 mcg/dL LAB CHEMISTRY METHOD 02/03/2025 5:47 PM EDT [facility] TIBC 476(H) 250 - 450 mcg/dL LAB CHEMISTRY METHOD 02/03/2025 5:47 PM EDT [facility] Iron Saturation 10(L) 15 - 50 % LAB CHEMISTRY METHOD 02/03/2025 5:47 PM EDT [facility] Blood Venous blood specimen / Unknown Venipuncture / Unknown 02/03/2025 12:20 PM EDT 02/03/2025 12:45 PM EDT us Rajiv Garnett MD LAB BLOOD ORDERABLES Final R esult [facility] [address] [place] [address], [place] [phone] * Copper, serum (02/03/2025 12:20 PM EDT) Copper 963 810 - 1990 ug/L 02/06/2025 1:35 PM EDT [facility] Comment: Copper values may be elevated to twice the normal levels in . Elevated results may be due to sample collected in a non-certified trace element-free tube. This test was developed and the performance characteristics determined by [facility]. It has not been cleared or approved by the FDA. The laboratory is regulated under CLIA as qualified to perform high-complexity testing. This test is used for patient testing purposes. It should not be regarded as investigational or for research. Test performed at [facility], [address] , [place], [place] ??[address] ? [phone] Donna Chambers MD, PhD - Carriage Operator Blood Venous blood specimen / Unknown Venipuncture / Unknown 02/03/2025 12:20 PM EDT 02/03/2025 12:43 PM EDT Rajiv Garnett MD LAB BLOOD ORDERABLES Final R esult Performing Organization Address [facility] Co de Phone Number [facility] [address] [place] [address] * Zinc (02/03/2025 12:20 PM EDT) Zinc 84 60 - 130 ug/dL 02/06/2025 8:59 AM EDT [facility] Comment: Elevated results may be due to sample collected in a non-certified trace element-free tube. This test was developed and the performance characteristics determined by [facility]. It has not been cleared or approved by the FDA. The laboratory is regulated under CLIA as qualified to perform high-complexity testing. This test is used for patient testing purposes. It should not be regarded as investigational or for research. Test performed at [facility], [address] [facility], [place], [place] ??[address] ? [phone] Donna Chambers MD, PhD - Carriage Operator Blood Venous blood specimen / Unknown Venipuncture / Unknown 02/03/2025 12:20 PM EDT 02/03/2025 12:43 PM EDT Rajiv Garnett MD LAB BLOOD ORDERABLES Final R esult Performing Organization Address [facility] Co de Phone Number [facility] [address] [place] [address] * Vitamin A (02/03/2025 12:20 PM EDT) Vitamin A 39 38 - 106 ug/dL 02/07/2025 7:16 AM EDT [facility] Comment: This test was developed and the performance characteristics determined by [facility]. It has not been cleared or approved by the FDA. The laboratory is regulated under CLIA as qualified to perform high-complexity testing. This test is used for patient testing purposes. It should not be regarded as investigational or for research. Test performed at [facility], [address] , [place], [place] ??[address] ? [phone] Donna Chambers MD, PhD - Carriage Operator Blood Venous blood specimen / Unknown Venipuncture / Unknown 02/03/2025 12:20 PM EDT 02/03/2025 12:43 PM EDT Rajiv Garnett MD LAB BLOOD ORDERABLES Final R esult Performing Organization Address City/[facility]/ZIP Co de Phone Number [facility] [address] [place] [address] * Selenium serum (02/03/2025 12:20 PM EDT) Pathologist [facility] Selenium 151 63 - 160 mcg/L 02/07/2025 8:07 PM EDT [facility] Comment: This test was developed and its analytical performance characteristics have been determined by [facility] [place] [place]. It has not been cleared or approved by the U.S. Food and Drug Administration. This assay has been validated pursuant to the CLIA regulations and is used for clinical purposes. [facility] Performed by [facility], [facility], [address] [place] [address] Shalom Rosario M.D., Ph.D., Director of Laboratories , CLIA [id number] Blood Venous blood specimen / Unknown Venipuncture / Unknown 02/03/2025 12:20 PM EDT 02/03/2025 12:43 PM EDT Rajiv Garnett MD LAB BLOOD ORDERABLES Final R esult Performing Organization Address City/[facility]/ZIP Co de Phone Number [facility] [address] [place] [address] * (ABNORMAL) Vitamin D 25 hydroxy (02/03/2025 12:20 PM EDT) Vit D, 25-Hydroxy 20.2(L) 30.0 - 80.0 ng/mL LAB CHEMISTRY METHOD 02/03/2025 6:19 PM EDT [facility] Blood Venous blood specimen / Unknown Venipuncture / Unknown 02/03/2025 12:20 PM EDT 02/03/2025 12:45 PM EDT Rajiv Garnett MD LAB BLOOD ORDERABLES Final R esult [facility] [address] [place] [address], [place] [phone] * Vitamin B1 (02/03/2025 12:20 PM EDT) Vitamin B1 Whole Blood 74 38 - 122 ug/L 02/16/2025 2:36 PM EDT [facility] Comment: This test was developed and the performance characteristics determined by [facility]. It has not been cleared or approved by the FDA. The laboratory is regulated under CLIA as qualified to perform high-complexity testing. This test is used for patient testing purposes. It should not be regarded as investigational or for research. Test performed at [facility], [address] , [place], [place] ??[address] ? [phone] Donna Chambers MD, PhD - Carriage Operator Blood Venous blood specimen / Unknown Venipuncture / Unknown 02/03/2025 12:20 PM EDT 02/03/2025 12:43 PM EDT us Rajiv Garnett MD LAB BLOOD ORDERABLES Final R esult [facility] [address] [place] [address] * Vitamin B6 (02/03/2025 12:20 PM EDT) Vitamin B6 (Pyridoxine) Level 12 5 - 50 ug/L 02/07/2025 9:27 AM EDT [facility] Comment: This test was developed and the performance characteristics determined by [facility]. It has not been cleared or approved by the FDA. The laboratory is regulated under CLIA as qualified to perform high-complexity testing. This test is used for patient testing purposes. It should not be regarded as investigational or for research. Test performed at [facility], [address] , [place], [place] ??[address] ? [phone] Donna Chambers MD, PhD - Carriage Operator Blood Venous blood specimen / Unknown Venipuncture / Unknown 02/03/2025 12:20 PM EDT 02/03/2025 12:43 PM EDT Rajiv Garnett MD LAB BLOOD ORDERABLES Final R esult [facility] [address] [place] [address] * (ABNORMAL) Parathyroid hormone intact (02/03/2025 12:20 PM EDT) PTH 116.2(H) 18.5 - 88.0 pcg/mL LAB CHEMISTRY METHOD 02/03/2025 6:20 PM EDT [facility] Blood Venous blood specimen / Unknown Venipuncture / Unknown 02/03/2025 12:20 PM EDT 02/03/2025 12:45 PM EDT Rajiv Garnett MD LAB BLOOD ORDERABLES Final R esult [facility] [address] [place] [address], * (ABNORMAL) Folate (02/03/2025 12:20 PM EDT) Folate >20.0(H) 2.8 - 17.0 ng/ml LAB CHEMISTRY METHOD 02/03/2025 6:10 PM EDT [facility] Blood Venous blood specimen / Unknown Venipuncture / Unknown 02/03/2025 12:20 PM EDT 02/03/2025 12:45 PM EDT us Rajiv Garnett MD LAB BLOOD ORDERABLES Final R esult Performing Organization Address City/[facility]/ZIP Co de Phone Number [facility] [address] [place] [address], [place] [phone] * Vitamin B12 (02/03/2025 12:20 PM EDT) [facility] Vitamin B-12 858 250 - 900 pcg/mL LAB CHEMISTRY METHOD 02/03/2025 6:10 PM EDT [facility] Blood Venous blood specimen / Unknown Venipuncture / Unknown 02/03/2025 12:20 PM EDT 02/03/2025 12:45 PM EDT Rajiv Garnett MD LAB BLOOD ORDERABLES Final R esult Performing Organization Address City/[facility]/ZIP Co de Phone Number [facility] [address] [place] [address], [place] [phone] * Calcium (02/03/2025 12:20 PM EDT) [facility] Calcium 9.5 8.5 - 10.5 mg/dL LAB CHEMISTRY METHOD 02/03/2025 5:47 PM EDT [facility] Blood Venous blood specimen / Unknown Venipuncture / Unknown 02/03/2025 12:20 PM EDT 02/03/2025 12:45 PM EDT us Rajiv Garnett MD LAB BLOOD ORDERABLES Final R esult Performing Organization Address City/[facility]/ZIP Co de Phone Number [facility] [address] [place] [address], [place] [phone] * Albumin (02/03/2025 12:20 PM EDT) [facility] Albumin 3.8 3.2 - 5.0 g/dL LAB CHEMISTRY METHOD 02/03/2025 5:47 PM EDT [facility] Blood Venous blood specimen / Unknown Venipuncture / Unknown 02/03/2025 12:20 PM EDT 02/03/2025 12:45 PM EDT us Rajiv Garnett MD LAB BLOOD ORDERABLES Final R esult [facility] [address] [place] [address], [place] [phone] * Comprehensive metabolic panel (09/27/2024 9:48 PM EST) [facility] Sodium 140 133 - 145 mmol/L LAB CHEMISTRY METHOD 09/27/2024 10:51 PM [facility] Potassium 4.1 3.5 - 5.5 mmol/L LAB CHEMISTRY METHOD 09/27/2024 10:51 PM [facility] Chloride 110 96 - 110 mmol/L LAB CHEMISTRY METHOD 09/27/2024 10:51 PM [facility] CO2 25 21 - 32 mmol/L LAB CHEMISTRY METHOD 09/27/2024 10:51 PM [facility] Anion Gap 5 3 - 11 LAB CHEMISTRY METHOD 09/27/2024 10:51 PM [facility] Glucose 85 70 - 100 mg/dL LAB CHEMISTRY METHOD 09/27/2024 10:51 PM [facility] BUN 12 5 - 25 mg/dL LAB CHEMISTRY METHOD 09/27/2024 10:51 PM [facility] Creatinine 0.72 0.50 - 1.10 mg/dL LAB CHEMISTRY METHOD 09/27/2024 10:51 PM [facility] eGFR 104 >=60 mL/min/1. 73m2 LAB CHEMISTRY METHOD 09/27/2024 10:51 PM [facility] Comment:Calculation based on the??Chronic Kidney Disease Epidemiology Collaboration (CKD-EPI) equation refit??without adjustment for race. BUN/Creatinine Ratio 16.7 LAB CHEMISTRY METHOD 09/27/2024 10:51 PM [facility] Calcium 8.9 8.5 - 10.5 mg/dL LAB CHEMISTRY METHOD 09/27/2024 10:51 PM [facility] AST (SGOT) 29 10 - 42 unit/L LAB CHEMISTRY METHOD 09/27/2024 10:51 PM [facility] ALT (SGPT) 37 10 - 60 unit/L LAB CHEMISTRY METHOD 09/27/2024 10:51 PM [facility] Alkaline Phosphatase 87 42 - 121 unit/L LAB CHEMISTRY METHOD 09/27/2024 10:51 PM [facility] Total Protein 6.8 6.0 - 8.0 g/dL LAB CHEMISTRY METHOD 09/27/2024 10:51 PM [facility] Albumin 3.7 3.2 - 5.0 g/dL LAB CHEMISTRY METHOD 09/27/2024 10:51 PM [facility] Total Bilirubin 0.6 0.0 - 1.4 mg/dL LAB CHEMISTRY METHOD 09/27/2024 10:51 PM [facility] Blood Venous blood specimen / Unknown Venipuncture / Unknown 09/27/2024 9:48 PM EST 09/27/2024 10:05 PM EST us Hua Kessler DO LAB BLOOD ORDERABLES Final Resu lt [facility] [address] [place] [address], * (ABNORMAL) Hemoglobin A1c (02/15/2022) Hemoglobin A1C 8.3(A) <=6.5 % Blood Venous blood specimen / Unknown Historical Provider LAB BLOOD ORDERABLES Tricia l Result * Lipid panel (02/15/2022) LDL/HDL Ratio 3 0 - 4 Triglycerides 74 0 - 150 mg/dL Cholesterol 121 0 - 200 mg/dL HDL 44 >=40 mg/dL LDL Cholesterol 63 0 - 100 mg/dL Blood Venous blood specimen / Unknown Historical Provider LAB BLOOD ORDERABLES Tricia l Result from Last 3 Months or Most Recently Relevant to Health Maintenance Insurance MEDICAID - [place] Care Teams Investment Consultant Relationship Specialty Start Date End Date Wil Palmer [address], [place] PCP - General Internal Medicine 12/15/21
--- OUTSIDE RECORDS SUMMARY | 2025-02-21 14:32 | XMS_ITS | Encounter Summary ---
Author Organization [employer] Address [address] [facility] [address] [place] [address] Care Team Providers Care Diesel Engine I Pipe Fitter Name Role Phone Wil Palmer MD Primary Care Prov ider Encounter Details Date Type Department Care Team ([facility] st Contact Info) Description 06/14/2024 Orders Only [facility] [address], [place] [phone] Teresita Alaniz MD [address] [place] [address] Social History Tobacco Use Types Packs/Day Years Used Date Smoking Tobacco: Never Passive Smoke Exposure: Never Smokeless Tobacco: Never Depression Answer Date Recorded Patient Health Questionnaire-9 Score 21 11/27/2023 Patient Health Questionnaire-9 Score 21 11/27/2023 Last PHQ-9: Questionnaire Data Not on file 0 11/27/2023 Housing Stability Answer Date Recorded What is your housing situation today? I do not have housing (Staying with others, in a hotel, in a care home, living outside on the street, on a [...] Answer Date Recorded Patient Health Questionnaire-2 Score 6 11/27/2023 Comments Unknown Sex and Gender Information Value Date Recorded Sex Assigned at Female 08/15/2022 10:14 AM EDT Legal Sex Female 10:14 AM EDT Gender Identity Choose not to disclose 10:14 AM EDT Sexual Orientation Choose not to disclose 2021 10:14 AM EDT documented as of this encounter Plan of Treatment Upcoming Encounters Date Type Department Care Team ([facility] st Contact Info) Description 2025 8:30 AM EDT Office Visit [facility] [address] [place] [address] Wil Palmer MD [address] [place] [address] documented as of this encounter Visit Diagnoses Not on filedocumented in this encounter Additional Health Concerns Assessment Noted Time PHQ-9 Depression Total Score: 21 024 3:45 PM EST documented as of this encounter Care Teams Diesel Engine I Pipe Fitter Relationship Specialty Start Date End Date Wil Palmer MD [address] [place] [address] PCP - General Internal Medicine 05/13/19 documented as of this encounter
== END 2025-02-21 14:31 | disposition home or self-care (01) ==
LOC: HO.MAMMO 14:30
PROVIDERS: PCP Internal Medicine; Visit Provider Internal Medicine
DX: Z12.31 Encounter for screening mammogram for malignant neoplasm of breast (principal)
CPT/HCPCS: 77063; 77067

== ENCOUNTER → 2025-02-21 14:30 | Outpatient (BNV) | payer MEDICAID, SELFPAY | PROVIDERS: PCP Internal Medicine; Visit Provider Internal Medicine | DX: Z12.31 Encounter for screening mammogram for malignant neoplasm of breast (principal) | CPT/HCPCS: 77063; 77067 ==

== ENCOUNTER 2025-04-23 09:03 | Outpatient (REF) | payer MEDICAID, SELFPAY ==
--- OUTSIDE RECORDS SUMMARY | 2025-04-23 09:18 | XMS_ITS | Clinical Summary ---
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 Name Role Phone Wil Palmer Primary Care [...] mcg (50,000 unit) capsuleIndications :Vitamin D deficiency TAKE 1 CAPSULE BY MOUTH ONCE WEEKLY 8 capsule 1 03/19/20 25 Active Active Problems Problem Noted Date Diagnosed Date Class 1 obesity due to exces s calories with serious comorbidity and body mass index (BMI) of 33.0 to 33.9 in adult 10/14/2024 Depression 03/29/2018 Hypertension 03/29/2018 Tinea pedis 03/29/2018 Overview (10/14/2024): Both feet Type 2 diabetes mellitus wit hout complication (CMS/[facility] V24, [facility] V28) 03/29/2018 Medical History Medical History Date Comments Depression 03/29/2018 DX:Depression Type 2 diabetes mellitus wit hout complication (CMS/[facility] V24, [facility] V28) 03/29/2018 DX:Type 2 diabetes mellitus [...] 38 12/24/2024 1:11 PM EDT Temperature 36.6 C (97.8 F) 12/24/2024 1:11 PM EDT Respiratory Rate 14 09/27/2024 9:27 PM EST [...] 5 Years) and At-Risk Patients (6 to 49 Years) (2 of 2 - PCV) 06/25/2019 06/25/2018 Colorectal Cancer Screening: Colonoscopy 09/19/2022 Hepatitis C Screening 09/19/2022 Social Influencers of Health Screening 09/19/2022 Diabetes: Annual Urine Albumin-Creatinine Ratio (uACR) 09/29/2022 DTaP,Tdap,and Td Vaccines (3 - Td or Tdap) 03/06/2024 03/06/2014, 01/24/2002 COVID-19 Vaccine (1 2023-2 5 season) 2024 Diabetes: Blood Sugar Contro l Test (HGBA1C) 06/03/2025 12/04/2024, 11/27/2023, 02/15/2022 Influenza Vaccine (#1) 2025 07/02/2013 Depression Screening 07/04/2025 07/04/2024 Diabetes: [...] Iron and TIBC (02/03/2025 12:20 PM EDT) [facility] Iron 47 40 - 150 mcg/dL LAB CHEMISTRY METHOD 02/03/2025 5:47 PM EDT [facility] TIBC 476(H) 250 - 450 mcg/dL LAB CHEMISTRY METHOD 02/03/2025 5:47 PM EDT [facility] Iron Saturation 10(L) 15 - 50 % LAB CHEMISTRY METHOD 02/03/2025 5:47 PM EDT [facility] Blood Venous blood specimen / Unknown Venipuncture / Unknown 02/03/2025 12:20 PM EDT 02/03/2025 12:45 PM EDT Rajiv Garnett MD LAB BLOOD ORDERABLES Final R esult Performing Organization Address City/[facility]/ZIP Co de Phone Number [facility] [address] [place] [address], [place] [phone] * Copper, serum (02/03/2025 12:20 PM EDT) Copper 963 810 - 1990 ug/L 02/06/2025 1:35 PM EDT [facility] Comment: Copper values may be elevated to twice the normal levels in . Elevated results may be due to sample collected in a non-certified trace element-free tube. This test was developed and the performance characteristics determined by [facility]. It has not been cleared or approved by the FDA. The laboratory is regulated under CLIA as qualified to perform high-complexity testing. This test is used for patient testing purposes. It should not be regarded as investigational or for research. Test performed at [facility], [address], [place] [address] Donna Chambers MD, PhD - Wire Harness Design Engineer Blood Venous blood specimen / Unknown Venipuncture / Unknown 02/03/2025 12:20 PM EDT 02/03/2025 12:43 PM EDT Rajiv Garnett MD LAB BLOOD ORDERABLES Final R esult [facility] [address] [place] [address] * Zinc (02/03/2025 12:20 PM EDT) Zinc 84 60 - 130 ug/dL 02/06/2025 8:59 AM EDT [facility] Comment: Elevated results may be due to sample collected in a non-certified trace element-free tube. This test was developed and the performance characteristics determined by [facility]. It has not been cleared or approved by the FDA. The laboratory is regulated under CLIA as qualified to perform high-complexity testing. This test is used for patient testing purposes. It should not be regarded as investigational or for research. Test performed at [facility], [address], [place] [address] Donna Chambers MD, PhD - Wire Harness Design Engineer Blood Venous blood specimen / Unknown Venipuncture / Unknown 02/03/2025 12:20 PM EDT 02/03/2025 12:43 PM EDT Rajiv Garnett MD LAB BLOOD ORDERABLES Final R esult [facility] [address] [place] [address] * Vitamin A (02/03/2025 12:20 PM EDT) Vitamin A 39 38 - 106 ug/dL 02/07/2025 7:16 AM EDT [facility] Comment: This test was developed and the performance characteristics determined by [facility]. It has not been cleared or approved by the FDA. The laboratory is regulated under CLIA as qualified to perform high-complexity testing. This test is used for patient testing purposes. It should not be regarded as investigational or for research. Test performed at [facility], [address] , [place] [address] Donna Chambers MD, PhD - Wire Harness Design Engineer Blood Venous blood specimen / Unknown Venipuncture / Unknown 02/03/2025 12:20 PM EDT 02/03/2025 12:43 PM EDT us Rajiv Garnett MD LAB BLOOD ORDERABLES Final R esult Performing Organization Address City/[facility]/ZIP Co de Phone Number [facility] [address] [place] [address] * Selenium serum (02/03/2025 12:20 PM EDT) Selenium 151 63 - 160 mcg/L 02/07/2025 8:07 PM EDT [facility] Comment: This test was developed and its analytical performance characteristics have been determined by [employer] [place], [place]. It has not been cleared or approved by the U.S. Food and Drug Administration. This assay has been validated pursuant to the CLIA regulations and is used for clinical purposes. Test Performed by [facility], [employer] [facility], [address] [place] [address] Shalom Rosario M.D., Ph.D., Director of Laboratories , CLIA [id number] Blood Venous blood specimen / Unknown Venipuncture / Unknown 02/03/2025 12:20 PM EDT 02/03/2025 12:43 PM EDT Rajiv Garnett MD LAB BLOOD ORDERABLES Final R esult Performing Organization Address [facility] Co de Phone Number [facility] [address] [place] [address] * (ABNORMAL) Vitamin D 25 hydroxy (02/03/2025 12:20 PM EDT) Vit D, 25-Hydroxy 20.2(L) 30.0 - 80.0 ng/mL LAB CHEMISTRY METHOD 02/03/2025 6:19 PM EDT [facility] Blood Venous blood specimen / Unknown Venipuncture / Unknown 02/03/2025 12:20 PM EDT 02/03/2025 12:45 PM EDT Rajiv Garnett MD LAB BLOOD ORDERABLES Final R esult Performing Organization Address City/[facility]/ZIP Co de Phone Number [facility] [address] [place] [address], * Vitamin B1 (02/03/2025 12:20 PM EDT) Vitamin B1 Whole Blood 74 38 - 122 ug/L 02/16/2025 2:36 PM EDT [facility] Comment: This test was developed and the performance characteristics determined by [facility]. It has not been cleared or approved by the FDA. The laboratory is regulated under CLIA as qualified to perform high-complexity testing. This test is used for patient testing purposes. It should not be regarded as investigational or for research. Test performed at [facility], [address] [place] [address] Donna Chambers MD, PhD - Wire Harness Design Engineer Blood Venous blood specimen / Unknown Venipuncture / Unknown 02/03/2025 12:20 PM EDT 02/03/2025 12:43 PM EDT us Rajiv Garnett MD LAB BLOOD ORDERABLES Final R esult [facility] [address] [place] [address] * Vitamin B6 (02/03/2025 12:20 PM EDT) Vitamin B6 (Pyridoxine) Level 12 5 - 50 ug/L 02/07/2025 9:27 AM EDT [facility] Comment: This test was developed and the performance characteristics determined by [facility]. It has not been cleared or approved by the FDA. The laboratory is regulated under CLIA as qualified to perform high-complexity testing. This test is used for patient testing purposes. It should not be regarded as investigational or for research. Test performed at [facility], [address] , [place] [address] Donna Chambers MD, PhD - Wire Harness Design Engineer Blood Venous blood specimen / Unknown Venipuncture / Unknown 02/03/2025 12:20 PM EDT 02/03/2025 12:43 PM EDT Rajiv Garnett MD LAB BLOOD ORDERABLES Final R esult [facility] [address] [place] [address] * (ABNORMAL) Parathyroid hormone intact (02/03/2025 12:20 PM EDT) PTH 116.2(H) 18.5 - 88.0 pcg/mL LAB CHEMISTRY METHOD 02/03/2025 6:20 PM EDT [facility] Blood Venous blood specimen / Unknown Venipuncture / Unknown 02/03/2025 12:20 PM EDT 02/03/2025 12:45 PM EDT Rajiv Garnett MD LAB BLOOD ORDERABLES Final R esult [facility] [address] [place] [address], [place] [phone] * (ABNORMAL) Folate (02/03/2025 12:20 PM EDT) [facility] Folate >20.0(H) 2.8 - 17.0 ng/ml LAB CHEMISTRY METHOD 02/03/2025 6:10 PM EDT [facility] Blood Venous blood specimen / Unknown Venipuncture / Unknown 02/03/2025 12:20 PM EDT 02/03/2025 12:45 PM EDT Rajiv Garnett MD LAB BLOOD ORDERABLES Final R esult [facility] [address] [place] [address], [place] [phone] * Vitamin B12 (02/03/2025 12:20 PM EDT) Pathologist [facility] Vitamin B-12 858 250 - 900 pcg/mL LAB CHEMISTRY METHOD 02/03/2025 6:10 PM EDT [facility] Blood Venous blood specimen / Unknown Venipuncture / Unknown 02/03/2025 12:20 PM EDT 02/03/2025 12:45 PM EDT us Rajiv Garnett MD LAB BLOOD ORDERABLES Final R esult Performing Organization Address City/[facility]/ZIP Co de Phone Number [facility] [address] [place] [address], [place] [phone] * Calcium (02/03/2025 12:20 PM EDT) [facility] Calcium 9.5 8.5 - 10.5 mg/dL LAB CHEMISTRY METHOD 02/03/2025 5:47 PM EDT [facility] Blood Venous blood specimen / Unknown Venipuncture / Unknown 02/03/2025 12:20 PM EDT 02/03/2025 12:45 PM EDT us Rajiv Garnett MD LAB BLOOD ORDERABLES Final R esult Performing Organization Address [facility] Co de Phone Number [facility] [address] [place] [address], [place] [phone] * Albumin (02/03/2025 12:20 PM EDT) [facility] Albumin 3.8 3.2 - 5.0 g/dL LAB CHEMISTRY METHOD 02/03/2025 5:47 PM EDT [facility] Blood Venous blood specimen / Unknown Venipuncture / Unknown 02/03/2025 12:20 PM EDT 02/03/2025 12:45 PM EDT us Rajiv Garnett MD LAB BLOOD ORDERABLES Final R esult [facility] [address] [place] [address], [place] [phone] * Comprehensive metabolic panel (09/27/2024 9:48 PM EST) Sodium 140 133 - 145 mmol/L LAB CHEMISTRY METHOD 09/27/2024 10:51 PM [facility] Potassium 4.1 3.5 - 5.5 mmol/L LAB CHEMISTRY METHOD 09/27/2024 10:51 PM [facility] Chloride 110 96 - 110 mmol/L LAB CHEMISTRY METHOD 09/27/2024 10:51 PM [facility] CO2 25 21 - 32 mmol/L LAB CHEMISTRY METHOD 09/27/2024 10:51 PM [facility] Anion Gap 5 3 - 11 LAB CHEMISTRY METHOD 09/27/2024 10:51 PM [facility] Glucose 85 70 - 100 mg/dL LAB CHEMISTRY METHOD 09/27/2024 10:51 PM [facility] BUN 12 5 - 25 mg/dL LAB CHEMISTRY METHOD 09/27/2024 10:51 PM [facility] Creatinine 0.72 0.50 - 1.10 mg/dL LAB CHEMISTRY METHOD 09/27/2024 10:51 PM [facility] eGFR 104 >=60 mL/min/1. 73m2 LAB CHEMISTRY METHOD 09/27/2024 10:51 PM [facility] Comment:Calculation based on the Chronic Kidney Disease Epidemiology Collaboration (CKD-EPI) equation refit without adjustment for race. BUN/Creatinine Ratio 16.7 LAB CHEMISTRY METHOD 09/27/2024 10:51 PM [facility] Calcium 8.9 8.5 - 10.5 mg/dL LAB CHEMISTRY METHOD 09/27/2024 10:51 PM [facility] AST (SGOT) 29 10 - 42 unit/L LAB CHEMISTRY METHOD 09/27/2024 10:51 PM [facility] ALT (SGPT) 37 10 - 60 unit/L LAB CHEMISTRY METHOD 09/27/2024 10:51 PM [facility] Alkaline Phosphatase 87 42 - 121 unit/L LAB CHEMISTRY METHOD 09/27/2024 10:51 PM [facility] Total Protein 6.8 6.0 - 8.0 g/dL LAB CHEMISTRY METHOD 09/27/2024 10:51 PM [facility] Albumin 3.7 3.2 - 5.0 g/dL LAB CHEMISTRY METHOD 09/27/2024 10:51 PM [facility] Total Bilirubin 0.6 0.0 - 1.4 mg/dL LAB CHEMISTRY METHOD 09/27/2024 10:51 PM [facility] Blood Venous blood specimen / Unknown Venipuncture / Unknown 09/27/2024 9:48 PM EST 09/27/2024 10:05 PM EST Hua Kessler DO LAB BLOOD ORDERABLES Final Resu lt [facility] [address] [place] [address], * (ABNORMAL) Hemoglobin A1c (02/15/2022) Hemoglobin A1C [...] Maintenance Insurance MEDICAID - [place] Care Teams Fabric Machine Operator Relationship Specialty Start Date End Date Wil Palmer [address] [place], [place] PCP - General Internal Medicine 12/15/21
--- OUTSIDE RECORDS SUMMARY | 2025-04-23 09:18 | XMS_ITS | Clinical Summary ---
Author Organization [employer] Address [address] [place] [address] Care Team Providers Care Dry Mill Worker Name Role Phone Wil Palmer MD Primary Care Prov ider Allergies No known active allergies Medications Lancets 33G misc Check blood sugar twice a day Active Levonorgestrel (Mirena, 52 MG,) 20 MCG/DAY intrauterine device Insert 52 mg into the vagina. 12/22/19 12 Active Blood Pressure Monitoring (Omron 3 Series BP Monitor) device 1 kit Once per day. 1 each 07/04/20 24 Active amLODIPine (Norvasc) 5 MG tabletIndication s:Essential hypertension Take 1 tablet (5 mg) by mouth Once per day. 90 tablet 3 08/31/20 24 025 Active naproxen (Naprosyn) 500 MG tabletIndication s:Muscle spasm TAKE 1 TABLET BY MOUTH TWICE A DAY 30 tablet 03/21/20 25 Active hydrOXYzine HCl (Atarax) 25 MG tablet TAKE 1 TABLET BY MOUTH 4 TIMES DAILY. 90 tablet 04/14/20 25 Active doxepin (SINEquan) 25 MG capsule TAKE 1 CAPSULE BY MOUTH EVERY DAY AT BEDTIME 30 capsule 04/22/20 25 Active sertraline (Zoloft) 50 MG tablet Take 1 tablet (50 mg) by mouth Once per day. 30 tablet 2 04/10/20 24 025 Discontinued hydrOXYzine HCl (Atarax) 25 MG tablet TAKE 1 TABLET BY MOUTH 4 TIMES DAILY. 90 tablet 03/21/20 25 025 Discontinued doxepin (SINEquan) 25 MG capsule Take 1 capsule (25 mg) by mouth at bedtime. TAKE 1 CAPSULE BY MOUTH EVERYDAY AT BEDTIME 30 capsule 03/21/20 25 025 Discontinued Active Problems Problem Noted [...] 02/19/2018 HTN (hypertension) 01/08/2018 Assessment & Plan (2025 8:58 AM EDT): Uncontrolled, keep low sodium diet, keep bp log, stat amlodipine 5mg, follow up in 3 months, labs ordered Assessment & Plan (07/08/2024 10:16 AM EDT): [...] Encounters Date Type Department Care Team Description 2025 8:30 AM EDT Office Visit [facility] [address] [place] [address] Wil Palmer MD Primary hypertension (Primary Dx) 2025 Travel 04/20/2025 Refill [facility] [address] [place] [address] Wil Palmer MD 04/12/2025 Refill [facility] [address] [place] [address] Wil Palmer MD 03/19/2025 Refill [facility] [address] [place] [address] Wil Palmer MD Muscle spasm 03/19/2025 Refill [facility] [address] [place] [address] Melissa Newton FNP 02/21/2025 Orders Only [facility] [address] [place] [address] Teresita Alaniz MD 02/20/2025 Telephone [facility] [address] [place] [address] Wil Palmer MD 02/20/2025 Travel 01/31/2025 Telephone [facility] [address] [place], [place] [phone] Ashli Giang OD 01/27/2025 Refill [facility] [address] [place] [address] Wil Palmer MD 01/23/2025 3:30 PM EDT Office Visit [facility] [address] [place] [address] Teresita Alaniz MD Chest wall pain (Primary Dx) 01/23/2025 Travel from Last 3 Months Immunizations Immunization Administration Dates Next Due Hep B, adult [...] with others, in a hotel, in a [place] [facility], living outside on the street, on a [...] Sign Reading Time Taken Comments Blood Pressure 143/80 2025 8:44 AM EDT Pulse 38 2025 8:44 AM EDT Temperature 36.8 C (98.2 F) 2025 8:44 AM EDT Respiratory Rate 18 2025 8:44 AM EDT Oxygen Saturation 99% 2025 8:44 AM EDT Inhaled Oxygen Concentration - - Weight 69.4 kg (153 lb) 2025 8:44 AM EDT Height 170.2 cm (5' 7 ) 2025 8:44 AM EDT Body Mass Index 23.96 2025 8:44 AM EDT Plan of Treatment Health Maintenance Due Date Last Done Comments CT Colonography 1977 Colonoscopy 1977 Colorectal Cancer Screening 1975 FIT DNA/Cologuard 1977 FIT 1977 FOBT 1975 Sigmoidoscopy 1977 Disability Screening 1977 Alcohol/Substance Use Screening 1989 Family Planning (PISQ) 1992 Hepatitis B Vaccines (2 of 3 - 19+ 3-dose series) 07/08/2008 06/10/2008 DTaP/Tdap/Td Vaccines (2 - Td or Tdap) 03/06/2024 03/06/2014, 01/24/2002 COVID-19 Vaccine ( - season) 2024 SDOH Screening 11/27/2024 11/27/2023 Influenza Vaccine (#1) 2025 07/02/2013 Depression Screening 07/04/2025 07/04/2024, 07/04/20 24 Diabetes: Hemoglobin A1C 12/04/2025 025, 04/08/2024, 11/27/2023, Additional history exists Tobacco Screening 01/23/2026 01/23/2025 Pap Smear 03/07/2026 03/07/2023 Mammogram 02/21/2027 02/21/2025, 05/0 12/2023, 12/19/2022, Additional history exists Zoster Vaccines (1 of 2) 2027 Cervical Cancer Screening 03/07/2028 HPV/Cotest 03/07/2028 03/07/2023 Lipid Panel 07/26/2028 07/26/2023, 04/16, 10/26/2021, Additional history exists RSV Patients and Patients Aged 60 years or older (1 - 1-dose 75+ series) 2052 Pneumococcal Vaccine: Pediatrics (0 to 5 Years) and At-Risk Patients (6 to 49) Years Aged Out 06/25/2018 No longer eligible based [...] Procedure Name Priority Date/Time Associated Diagnosis Comments BI MAMMOGRAM SCREENING TOMOSYNTHESIS BILATERAL Routine 02/21/2025 2:35 PM EDT POCT GLYCATED HEMOGLOBIN, TOTAL Routine 12/04/2024 9:50 AM EST Blurry vision, bilateral LIPID PANEL, STANDARD Routine 07/26/2023 3:15 PM EDT Type 2 diabetes mellitus with hyperglycemia, without long-term current use of insulin ([facility]) HEPATITIS C VIRAL RNA, QUANTITATIVE, REAL-TIME PCR [...] Recently Relevant to Health Maintenance Results * BI Mammogram Screening Tomosynthesis Bilateral (02/21/2025 2:35 PM EDT) Anatomical Region Laterality Modality Breast Bilateral Mammography 02/21/2025 2:35 PM EDT Narrative 03/01/2025 9:02 AM EDT [facility] [address] [place] [address] Mammography Report Signed Patient: Tamanna Aburto MR#: [id number] 202 : 1975 Acct:[id number] Age/Sex: 49 / F ADM Date: 02/21/25 Loc: .MAMMO Attending Dr: Teresita Alaniz MD Ordering Physician: Teresita Alaniz MD Results: 1 Negative Date of Service: 02/21/25 Follow Up: 1 Year From [facility] Mammogram Procedure(s): MM tomosynthesis screening BI Accession Number(s): [id number] cc: Teresita Alaniz MD EXAMINATION: MM SCREENING DIGITAL BREAST TOMOSYNTHESIS, BILATERAL CLINICAL INFORMATION: Screening. Asymptomatic. COMPARISON: Mammography: Comparison is made with available priors TECHNIQUE: Digital breast mammography with tomosynthesis is performed in both the craniocaudal and mediolateral oblique views along with computer-aided detection (CAD). FINDINGS: The breasts are heterogeneously dense, which may obscure small masses (ACR BI-RADS breast composition Category c). There are no significant masses, abnormal calcifications, or other abnormalities. MM/MM tomosynthesis screening BI IMPRESSION: No mammographic evidence of malignancy. ASSESSMENT: BI-RADS BI-RADS 1 - Negative RECOMMENDATION: Routine annual mammography screening. 1 year F/U This examination should not preclude the clinical evaluation of a suspicious palpable abnormality. This patient's information was entered into a reminder system with a target due date for their next mammogram. Electronically signed by: Keren Umana DO 03/01/2025 08:59 AM EDT Dictated By: Keren Umana DO Signed By: <Electronically signed by Keren Umana DO in OV> 03/01/25 0859 DD/ 1435 TD/TT: 02/21/25 1452 Lithoduplicator Operator: Procedure Note Donotuseinterpreter, Image - 03/03/2025 [facility] [address] [place] [address] Mammography Report Signed Patient: Sudeep Aburto#: [id number] 202 : 1975Acct:[id number] Age/Sex: 49 / FADM Date: 02/21/25 Loc: HO.MAMMO Attending Dr: Teresita Alaniz MD Ordering Physician: Teresita Alaniz MDResults: 1 Negative Date of Service: 02/21/25Follow Up: 1 Year From [facility] Mammogram Procedure(s): MM tomosynthesis screening BI Accession Number(s): [id number] cc: Teresita Alaniz MD EXAMINATION: MM SCREENING DIGITAL BREAST TOMOSYNTHESIS, BILATERAL CLINICAL INFORMATION: Screening. Asymptomatic. COMPARISON: Mammography: Comparison is made with available priors TECHNIQUE: Digital breast mammography with tomosynthesis is performed in both the craniocaudal and mediolateral oblique views along with computer-aided detection (CAD). FINDINGS: The breasts are heterogeneously dense, which may obscure small masses (ACR BI-RADS breast composition Category c). There are no significant masses, abnormal calcifications, or other abnormalities. MM/MM tomosynthesis screening BI IMPRESSION: No mammographic evidence of malignancy. ASSESSMENT: BI-RADS BI-RADS 1 - Negative RECOMMENDATION: Routine annual mammography screening. 1 year F/U This examination should not preclude the clinical evaluation of a suspicious palpable abnormality. This patient's information was entered into a reminder system with a target due date for their next mammogram. Electronically signed by: Keren Umana DO 03/01/2025 08:59 AM EDT RP Dictated By: Keren Umana DO Signed By: <Electronically signed by Keren Umana DO in OV> 03/01/25 0859 DD/ 1435 TD/TT: 02/21/25 1452 Lithoduplicator Operator: Teresita Alaniz MD IMG BI PROCEDURES Edited Re sult - Final * POCT HGB A1C (12/04/2024 9:50 AM EST) Hemoglobin A1C 5.8 4.0 - 6.0 % Blood 12/04/2024 9:50 AM EST Jordi Aguilar MD POINT OF CARE TEST ENTER/EDIT OR DERABLES Final Result * (ABNORMAL) Lipid Panel, Standard (07/26/2023 3:15 PM EDT) Triglycerides 51 <150 mg/dL [facility] Comment:Desirable Triglyceri de: less than 150 mg/dLBorderline High Triglyceride 150-199 mg/dLHigh Triglyceride: 200-499 mg/dLVery High Triglyceride: greater than or equal to 5OO mg/dL Cholesterol 124 <200 mg/dL [facility] Comment:Desirable Cholestero l: less than 200 mg/dLBorderline High Cholesterol: 200-239 mg/dLHigh Cholesterol: greater than 239 mg/dL LDL Cholesterol Calculated 74 <100 mg/dL [facility] Comment:Desirable LDL: less than 100 mg/dLNear Optimal/Above Optimal LDL: 110- 129 mg/dLBorderline High LDL: 130-159 mg/dLHigh LDL: 160-189 mg/dLVery High LDL: greater than or equal to 190 mg/dL HDL Cholesterol 40(L) >40 mg/dL [facility] Comment:Desirable HDL: great er than 40 mg/dL Note: This HDL assay may give artificially low results in patients with liver disease. Blood Venous blood specimen / Unknown 07/26/2023 3:15 PM EDT 07/26/2023 5:28 PM EDT Wil Thompson MD LAB BLOOD ORDERABL ES Final Result Performing Organization Address [facility] de Phone Number [facility] [address] [place] [phone] * Hepatitis C Viral RNA, Quantitative, Real-Time PCR (05/01/2023 12:14 PM EDT) Hepatitis C Viral Load <15 NOT DETECTED NOT DETECTED IU/mL [facility] HCV Log PCR <1.18 NOT DETECTED NOT DETECTED Log IU/mL [facility] Comment:This test was perfor med using Real-Time Polymerase ChainReaction.Reportable Range: 15 IU/mL to 100,000,000 IU/mL(1.18 Log IU/mL to 8.00 Log IU/mL).The analytical performance characteristics of thisassay have been determined by [facility].The modifications have not been cleared or approved bythe FDA. This assay has been validated pursuant to theCLIA regulations and is used for clinical purposes.For more information on this test, go to:http://education.Postmates/faq/HOX21k7(This link is being provided for informational/educational purposes only.)THIS TEST WAS PERFORMED AT:[facility] [place] [phone] MACDONALD MD Blood 05/01/2023 12:1 4 PM EDT 05/01/2023 2:45 PM EDT [facility] LAB BLOOD ORDERABLES Final Re sult Performing Organization Address [facility]/ZIP Co de Phone Number [facility] [address] [place] [address] [place] [phone] * HPV mRNA E6/E7 w/Reflex to HPV Genotypes 16, 18/45 (03/07/2023 3:30 PM EDT) HPV nRNA E6/E7 Not Detected Not Detected [facility] Comment:Methodology: Transcr iption-Mediated AmplificationThis assay detects E6/E7 viral messenger RNA (mRNA) from 14high-risk HPV types (16,18,31,33,35,39,45,51,52,56,58,59,66,68).Cervical sources are required for HPV testing.If a vaginal source from a patient who has had atotal hysterectomy with removal of cervix wassubmitted, please contact the testing laboratoryfor alternative testing options.For additional information, please refer tohttp://education.Postmates/faq/UMY955l1(This link if provided for information/educational purposes only.)THIS TEST WAS PERFORMED AT:[facility] [place] [phone] MACDONALD MD HPV mRNA E6/E7 [facility] HPV 16 RNA [facility] HPV 18/45 RNA [facility] 03/07/2023 3:30 PM EDT 03/08/2023 11:25 AM EDT us [facility] External Provider LAB CYT OLOGY ORDERABLES Final Result [facility] [address] [place] [phone] * Pap Smear (03/07/2023 3:30 PM EDT) 03/07/2023 3:30 PM EDT 03/08/2023 11:25 AM EDT Narrative [facility] - 03/22/2023 1:15 PM EDT ----- ------- Name: Tamanna Aburto Age/Sex: 47/F : 1975 Unit#: [id number] Attend Dr: Keely Balderrama Re03/07/23 Status: DEP REF Location: [facility] Disch: ----- ------- SPEC : [id number] RECD: 03/08/23-1125 STATUS: CAROLE TOWNSEND NUM: [id number] COLLEEN: 03/07/23-[address]: Keely Balderrama ENTERED: 03/08/23-1302 SP TYPE: Pap Smr OTHR DR: Wil Palmer MD ORDERED: Pap Smear Interpretation Satisfactory for evaluation. Coccobacilli consistent with shift in vaginal laura. Negative for intraepithelial lesion or malignancy. HPV mRNA E6/E7: NOT DETECTED This assay detects E6/E7 viral messenger RNA (mRNA) from 14 high-risk HPV types (16, 18, 31, 33, 35, 39, 45, 51, 52, 56, 58, 59, 66, 68) HPV testing performed by [facility], [place], [place]. See reference laboratory pion of the EMR for entire report. Clinical Information LMP: Mirena, no menses Previous PAP test: 07/01/21, WNL Material Received ThinPrep-Cervical Copies To: Wil Palmer MD [address] [place], [place] [phone] Keely Balderrama[address] Jurado [address] [place] [phone] ----- ------- Signed (signature on file) ALIYAH Knox ([facility]) 03/22/23 1315 ----- ------- END OF REPORT [facility] External Provider LAB CYT [facility] ORDERABLES Final Result [facility] [address] [place] [phone] * HIV 1/2 ANTIGEN/ANTIBODY,FOURTH GENERATION W/RFL (10/26/2021 11:52 AM EST) Pathologist [facility] HIV-1/2 ANTIGEN AND ANTIBODIES, 4TH GENERATION W/ REFLEX NON-REACT CECI NON-REACT CECI [facility] Comment: HIV-1 antigen and HIV-1/HIV-2 antibodies were not detected. There is no laboratory evidence of HIV infection. PLEASE NOTE: This information has been disclosed to you from records whose confidentiality may be protected by state law. If your state requires such protection, then the state law prohibits you from making any further disclosure of the information without the specific written consent of the person to whom it pertains, or as otherwise permitted by law. A general authorization for the release of medical or other information is NOT sufficient for this purpose. For additional information please refer to http://education.Postmates/faq/MTV293 (This link is being provided for informational/ educational purposes only.) The performance of this assay has not been clinically validated in patients less than 2 years old. 10/26/2021 11:5 2 AM EST us iWl Thompson MD LAB BLOOD ORDERABL ES Final Result [facility] [address] from Last 3 Months or Most Recently Relevant to Health Maintenance Insurance C3 Care Teams Dry Mill Worker Relationship Specialty Start Date End Date Wil Palmer MD [address] [place] [phone] PCP - General Internal Medicine 05/13/19
[2025-04-23 16:34] LABS: Alanine Aminotransferase 53 U/L (0-31); Albumin Level 4.0 g/dL (3.5-5.0); Alkaline Phosphatase 68 U/L (39-117); Anion Gap 11 (12-20); Aspartate Amino Transferase 79 U/L (5-31); Blood Urea Nitrogen 13 mg/dL (9-16); Calcium 9.0 mg/dL (8.4-10.2); Carbon Dioxide 24 mmol/L (22-29); Chloride 109 mmol/L (96-108); Cholesterol 113 mg/dL (<200); Estimated Glomerular Filt Rate > 60; HDL Cholesterol 44 mg/dL (>40); Potassium 4.0 mmol/L (3.3-5.1); Sodium 140 mmol/L (135-145); Total Protein 6.9 g/dL (6.5-8.0); Triglycerides 49 mg/dL (<150)
[2025-04-23 16:35] LABS: Hematocrit 39.6 % (37.0-47.0); Hemoglobin 13.2 g/dl (12.0-16.0); Imm Gran Abs Auto 0.01 X10*3/uL (0.00-0.03); Imm Gran Pct Auto 0.1 % (0.0-0.4); Lymphocytes Absolute Auto 2.1 X10*3/uL (1.2-4.9); MANUAL DIFF FLAG SCAN; Mean Corpuscular HGB Conc 33.3 g/dl (31.0-35.0); Mean Corpuscular Hemoglobin 29.3 pg (27.0-33.0); Mean Corpuscular Volume 87.8 fL (80.0-98.0); NRBC Abs Auto 0.000 X10*3/uL (0.0-0.012); NRBC Pct Auto 0.0 /100WBC (0.0-0.2); PLT CLUMP 1; Red Blood Count 4.51 X10*6/uL (4.20-5.50); SCAN SMEAR FLAG 1
[2025-04-23 16:43] LABS: Hemoglobin A1C 131.8118 umol/L; Total Hemoglobin (HGBA1C) 3461.4008 umol/L
[2025-04-23 17:09] LABS: Platelet Count 159 X10*3/uL (160-400); White Blood Count 7.1 X10*3/uL (4.8-10.8)
== END 2025-04-23 09:04 | disposition home or self-care (01) ==
LOC: HO.CHCLDS 09:03
PROVIDERS: Visit Provider Internal Medicine
DX: I10 Essential (primary) hypertension (principal)
CPT/HCPCS: 36415; 80053; 80061; 83036; 85025

== ENCOUNTER 2025-08-26 12:47 | Outpatient (REF) | payer MEDICAID, SELFPAY ==
--- NOTE | ~2025-08-26 | US_ITS ---
EXAMINATION: US COMPLETE ABDOMEN WITH LIVER ELASTOGRAPHY CLINICAL INFORMATION: Elevated liver enzymes COMPARISON: None available. TECHNIQUE: Real-time imaging of the abdominal viscera. Noninvasive ultrasound liver fibrosis assessment is performed using Yandy ElastPQ point quantification shear wave elastography (pSWE) with a C5-2 MHz transducer. Multiple elastography samples are obtained. FINDINGS: Bowel gas limiting evaluation. PANCREAS: The visualized pancreatic head and body are normal in appearance. The remainder of the pancreas is obscured from visualization by the overlying bowel gas. ABDOMINAL AORTA: No aortic aneurysm is seen. Atherosclerosis of the mid and distal aorta. INFERIOR VENA CAVA: Visualized portions are normal. LIVER: The liver demonstrates normal size, contour. Echogenicity appears within normal limits. No focal lesion. Question mild dilatation of intrahepatic bile ducts. The right lobe measures 15.5 cm in length. The left lobe measures 7.3 cm in length. Portal flow is hepatopedal Shear wave liver elastography median stiffness is 1.44 m/s (reference: normal median stiffness is 1.3 m/s or less). IQR/median stiffness to assess sampling precision is 0.03 (reference: good quality data set is IQR/median stiffness of 0.15 or less). GALLBLADDER: The gallbladder is mildly distended. No evidence of stones, sludge, polyps, wall thickening or pericholecystic fluid. COMMON BILE DUCT: Normal in caliber measuring 0.3 cm in diameter. RIGHT KIDNEY: No hydronephrosis. No renal calculi or focal parenchymal lesions. Question mild increased parenchymal echogenicity, versus related to bowel gas. The kidney measures 10.3 cm in maximum dimension. LEFT KIDNEY: No hydronephrosis. Upper pole is not well visualized. No renal calculi or focal parenchymal lesions. The kidney measures 10.5 cm in maximum dimension. SPLEEN: Unremarkable. The spleen measures 8.6 cm in maximum dimension. FREE FLUID: None seen. US/US abdomen comp w elastography IMPRESSION: 1. Question mild dilatation of intrahepatic bile ducts. CBD is of normal caliber. Hepatic parenchyma echogenicity is within normal limits. 2. Liver elastography: Median stiffness 1.44 m/s *Liver Stiffness less than 1.7 m/s: In the absence of other known clinical signs, rules out compensated advanced chronic liver disease. REFERENCE: Society of Radiologists in Ultrasound Liver Stiffness Thresholds (2020): LIVER STIFFNESS THRESHOLDS: *Liver Stiffness equal or less than 1.3 m/s: High probability of being normal. *Liver Stiffness less than 1.7 m/s: In the absence of other known clinical signs, rules out compensated advanced chronic liver disease. *Liver Stiffness 1.7-2.1 m/s: Suggestive of compensated advanced chronic liver disease but need further test for confirmation. *Liver Stiffness over 2.1 m/s: Rules in compensated advanced chronic liver disease. *Liver Stiffness over 2.4 m/s: Suggestive of clinically significant portal hypertension. QUALITY OF DATA SET: *IQR/Median value equal or less than 0.15 implies a quality data set. *IQR/Median value over 0.15 implies a poor quality data set. SIGNIFICANT CHANGE FROM PRIOR EXAM: Significant change if liver stiffness measurement is 10% or greater from prior exam. OTHER CONSIDERATIONS: The stage of liver fibrosis may be overestimated in the setting of acute hepatitis, liver inflammation, elevated liver function tests, hepatic vascular congestion, obstructive cholestasis, non-fasting state, and infiltrative diseases such as amyloidosis and lymphoma. In some patients with NAFLD, the liver stiffness thresholds for compensated advanced chronic liver disease may be lower. In causes other than viral hepatitis and NAFLD, liver stiffness thresholds are not well established. Electronically signed by: Yaakov Jackson MD 08/27/2025 11:47 AM [facility]
--- OUTSIDE RECORDS SUMMARY | 2025-08-26 14:29 | XMS_ITS | Encounter Summary ---
Author Organization [facility] Address [address] [place] [phone] Phone Care Team Providers Care Produce Department Supervisor Name Role Phone Wil Palmer MD Primary Care Prov ider Encounter Details Date Type Department Care Team (Late st Contact Info) Description 04/08/2024 Procedure Pass OR Admitting Dept - Virtual Department [address] [place] [address] Social History Tobacco Use Types Packs/Day Years Used Date Smoking Tobacco: Never Smokeless Tobacco: Never Alcohol Use Standard Drinks/Week Comments Never 0 (1 standard drink = 0.6 oz pur e alcohol) Education Answer Date Recorded Are you interested in more education? Not on perez e 07/13/2023 Are you concerned about learning? Not on file 07/13/2023 No 07/13/2023 No 07/13/2023 Digital Access Answer Date Recorded No 07/13/2023 No 07/13/2023 Reliable internet access at home? Not on file 07/13/2023 Device with a working camera? Not on file Intimate Partner Violence Answer Date R ecorded Are you denied basic needs s uch as food, clothing, or medical care? No 04/08/2024 In the past 12 months have y ou been in a relationship with a person who hurts, threatens, or tries to control you? No 04/08/2024 Are you denied basic needs s uch as food, clothing, or medical care? No 04/08/2024 In the past 12 months have y ou been in a relationship with a person who hurts, threatens, or tries to control you? No 04/08/2024 Comments No Sex and Gender Information Value Date Recorded Sex Assigned at Not on file Legal Sex Female 2:36 PM EDT Gender Identity Not on file Sexual Orientation Not on file documented as of this encounter Functional Status * Calculated C-SSRS Risk Score (Lifetime/Recent) Answer Date of Assessment Author No Risk Indicated 04/08/2024 10:00 PM EDT Valerie Kate i, RN * [place] Suicide Severity Rating Scale (Screener/Recent Self-Report) Question Answer Date of Assessment Author 1. Wish to be (Past 1 Month) No 04/08/2024 10:00 PM EDT Lin Keane RN 2. Non-Specific Active Suici cherrie Thoughts (Past 1 Month) No 04/08/2024 10:00 PM EDT Mario Keane RN 6. Suicidal Behavior (Lifetime) No 10:00 PM EDT Valerie Keane RN documented as of this encounter Plan of Treatment Not on file documented as of this encounter Visit Diagnoses Not on filedocumented in this encounter Care Teams Produce Department Supervisor Relationship Specialty Start Date End Date Wil Palmer MD [address] [place] [phone] PCP - General Internal Medicine 12/12/23 documented as of this encounter Additional Source Comments The information contained in this document represents components of the legal health record. It is not the complete legal health record.[facility]
--- OUTSIDE RECORDS SUMMARY | 2025-08-26 14:29 | XMS_ITS | Encounter Summary ---
Author Organization [facility] Address [address] [place] [phone] Phone Care Team Providers Care Professor Of Fine Art Name Role Phone Wil Palmer MD Primary Care Prov ider Encounter Details Date Type Department Care Team (Late st Contact Info) Description 04/17/2024 Transcribe Orders [facility] Specimen Processing [address] [place] [address] Wil Palmer MD [address] [place] [address] Social History Tobacco Use Types Packs/Day Years [...] on file documented as of this encounter Plan of Treatment Not on file documented as of this encounter Visit Diagnoses Not on filedocumented in this encounter Care Teams Professor Of Fine Art Relationship Specialty Start Date End Date Wil Palmer MD [address] [place] [address] PCP - General Internal Medicine 12/12/23 documented as of this encounter Additional Source Comments The information contained in this document represents components of the legal health record. It is not the complete legal health record.[facility]
--- OUTSIDE RECORDS SUMMARY | 2025-08-26 14:29 | XMS_ITS | Clinical Summary ---
Author Organization [employer] Address [address] [facility] 7[address] [place] [address] Care Team Providers Care Material Stockkeeper Yard Name Role Phone Wil Palmer MD Primary Care Prov ider Allergies No known active allergies Medications Lancets 33G misc Check blood sugar twice a day Active Levonorgestrel (Mirena, 52 MG,) 20 MCG/DAY intrauterine device Insert 52 mg into the vagina. 2 Active Blood Pressure Monitoring (Omron 3 Series BP Monitor) device 1 kit Once per day. 1 each 4 Active amLODIPine (Norvasc) 5 MG tabletIndications :Essential hypertension Take 1 tablet (5 mg) by mouth Once per day. 90 tablet 3 4 08/31/20 25 Active naproxen (Naprosyn) 500 MG tabletIndications :Muscle spasm TAKE 1 TABLET BY MOUTH TWICE A DAY 30 tablet 5 Active hydrOXYzine HCl (Atarax) 25 MG tablet TAKE 1 TABLET BY MOUTH 4 TIMES DAILY. 90 tablet 5 Active doxepin (SINEquan) 25 MG capsule TAKE 1 CAPSULE BY MOUTH EVERY DAY AT BEDTIME 30 capsule 5 Active Active Problems Problem Noted Date Diagnosed [...] dxt log, follow up in 1 month Immunizations Immunization Administration Dates Next Due Hep [...] with others, in a hotel, in a skilled nursing, living outside on the street, on a [...] the past 12 months, has t he Meme, gas, oil or water company threatened to [...] 2025 8:44 AM EDT Plan of Treatment Upcoming Encounters Date Type Department Care Team (Late st Contact Info) Description 09/04/2025 2:30 PM EST Office Visit [facility] CHC MED & PEDS [address] [place] [address] Wil Palmer MD [address] [place] [address] Health Maintenance Due Date Last Done Comments CT Colonography 1977 Colonoscopy 1977 Colorectal Cancer Screening 1977 FIT DNA/Cologuard 1977 FIT 1977 FOBT 1977 Sigmoidoscopy 1977 Disability Screening 1977 Alcohol/Substance Use Screening 1989 Family Planning (PISQ) 1992 Hepatitis B Vaccines (2 of 3 - 19+ 3-dose series) 07/08/2008 06/10/2008 DTaP/Tdap/Td Vaccines (2 - Td or Tdap) 03/06/2024 03/06/2014, 01/24/2002 SDOH Screening 11/27/2024 11/27/2023 COVID-19 Vaccine ( season) 2025 Influenza Vaccine (#1) 2025 07/02/2013 Depression Screening 07/04/2025 07/04/2024, 07/04/20 24 Tobacco Screening 01/23/2026 01/23/2025 Pap Smear 03/07/2026 03/07/2023 Mammogram 02/21/2027 02/21/2025, 05/0 12/2023, 12/19/2022, Additional history exists Zoster Vaccines (1 of 2) 2027 Cervical Cancer Screening 03/07/2028 HPV/Cotest 03/07/2028 03/07/2023 Lipid Panel 2030 2025, 07/16, 05/11/2022, Additional history exists RSV Patients and Patients [...] Procedure Name Priority Date/Time Associated Diagnosis Comments LIPID PANEL, STANDARD Routine 2025 9:04 AM EDT Primary hypertension BI MAMMOGRAM SCREENING TOMOSYNTHESIS BILATERAL Routine 02/21/2025 2:35 PM EDT HEPATITIS C VIRAL RNA, QUANTITATIVE, REAL-TIME PCR Routine 05/01/2023 12:14 PM EDT Type 2 diabetes mellitus with hyperglycemia, without long-term current use of insulin ([facility]) HPV MRNA E6/E7 REFLEX TO HPV 16, 18/45 Routine 03/07/2023 3:30 PM EDT PAP SMEAR Routine 03/07/2023 3:30 PM EDT HIV 1/2 ANTIGEN/ANTIBODY, FOURTH GENERATION W/RFL Routine 10/26/2021 11:52 AM EST from Last 3 Months or Most Recently Relevant to Health Maintenance Results * Lipid Panel, Standard (2025 9:04 AM EDT) Triglycerides 49 <150 mg/dL [facility] Comment:Desirable Triglyceri de: less than 150 mg/dLBorderline High Triglyceride 150-199 mg/dLHigh Triglyceride: 200-499 mg/dLVery High Triglyceride: greater than or equal to 5OO mg/dL Cholesterol 113 <200 mg/dL [facility] Comment:Desirable Cholestero l: less than 200 mg/dLBorderline High Cholesterol: 200-239 mg/dLHigh Cholesterol: greater than 239 mg/dL LDL Cholesterol Calculated 60 <100 mg/dL [facility] Comment:Desirable LDL: less than 100 mg/dLNear Optimal/Above Optimal LDL: 110- 129 mg/dLBorderline High LDL: 130-159 mg/dLHigh LDL: 160-189 mg/dLVery High LDL: greater than or equal to 190 mg/dL HDL Cholesterol 44 >40 mg/dL [facility] Comment:Desirable HDL: great er than 40 mg/dL Note: This HDL assay may give artificially low results in patients with liver disease. Blood Venous blood specimen / Unknown 2025 9:04 AM EDT 2025 4:03 PM EDT us Wil Thompson MD LAB BLOOD ORDERABL ES Final Result [facility] [address] [place] [phone] * BI Mammogram Screening Tomosynthesis Bilateral (02/21/2025 2:35 PM EDT) Anatomical Region Laterality Modality Breast Bilateral Mammography 02/21/2025 2:35 PM EDT Narrative 03/01/2025 9:02 AM EDT [address] [place] [address] Mammography Report Signed Patient: Tamanna Aburto MR#: [id number] : 1975 Acct:[id number] Age/Sex: 49 / F ADM Date: 02/21/25 Loc: HO.MAMMO Attending Dr: Teresita Alaniz MD Ordering Physician: Teresita Alaniz MD Results: 1 Negative Date of Service: 02/21/25 Follow Up: 1 Year From Orig ina Mammogram Procedure(s): MM tomosynthesis screening BI Accession Number(s): [id number] cc: Teresita Alaniz MD EXAMINATION: MM SCREENING [...] 03/01/25 0859 DD/ 1435 TD/TT: 02/21/25 1452 Head Greenskeeper: Procedure Note Donotuseinterpreter, Image - 03/03/[address] [place], [place] [address] Mammography Report Signed Patient: Sudeep Aburto#: [id number] : 1975Acct:[id number] Age/Sex: 49 / FADM Date: 02/21/25 Loc: HO.MAMMO Attending Dr: Teresita Alaniz MD Ordering Physician: Teresita Alaniz MDResults: 1 Negative Date of Service: 02/21/25Follow Up: 1 Year From [facility] ina Mammogram Procedure(s): MM tomosynthesis screening BI Accession Number(s): [id number] cc: Teresita Alaniz MD EXAMINATION: MM SCREENING [...] 03/01/25 0859 DD/ 1435 TD/TT: 02/21/25 1452 Head Greenskeeper: us Teresita Alaniz MD IMG BI PROCEDURES Edited Re sult - Final * Hepatitis C Viral RNA, Quantitative, Real-Time PCR (05/01/2023 12:14 PM EDT) Pathologist [facility] Hepatitis C Viral Load <15 NOT DETECTED NOT DETECTED IU/mL [facility] HCV Log PCR <1.18 NOT DETECTED NOT DETECTED Log IU/mL [facility] Comment:This test was perfor med using Real-Time Polymerase ChainReaction.Reportable Range: 15 IU/mL to 100,000,000 IU/mL(1.18 Log IU/mL to 8.00 Log IU/mL).The analytical performance characteristics of thisassay have been determined by [facility].The modifications have not been cleared or approved bythe FDA. This assay has been validated pursuant to theCLIA regulations and is used for clinical purposes.For more information on this test, go to:http://WhatsOpen.WigWag/faq/RGJ97b3(This link is being provided for informational/educational purposes only.)THIS TEST WAS PERFORMED AT:[facility] [place] [phone] MACDONALD MD Blood 05/01/2023 12:1 4 PM EDT 05/01/2023 2:45 PM EDT [facility] LAB BLOOD ORDERABLES Final Re sult [facility] [address] [place] [phone] * HPV mRNA E6/E7 w/Reflex to HPV Genotypes 16, 18/45 (03/07/2023 3:30 PM EDT) Pathologist [facility] HPV nRNA E6/E7 Not Detected Not Detected [facility] Comment:Methodology: Transcr iption-Mediated AmplificationThis assay detects E6/E7 viral messenger RNA (mRNA) from 14high-risk HPV types (16,18,31,33,35,39,45,51,52,56,58,59,66,68).Cervical sources are required for HPV testing.If a vaginal source from a patient who has had atotal hysterectomy with removal of cervix wassubmitted, please contact the testing laboratoryfor alternative testing options.For additional information, please refer tohttp://education.WigWag/faq/SPJ036p5(This link if provided for information/educational purposes only.)THIS TEST WAS PERFORMED AT:[facility] [place] [phone] MACDONALD MD HPV mRNA E6/E7 TNP [facility] HPV 16 RNA TNP [facility] HPV 18/45 RNA TNP [facility] 03/07/2023 3:30 PM EDT 03/08/2023 11:25 AM EDT [facility] External Provider LAB CYT OLOGY ORDERABLES Final Result [facility] [address] [place] [phone] * Pap Smear (03/07/2023 3:30 PM EDT) 03/07/2023 3:30 PM EDT 03/08/2023 11:25 AM EDT Narrative [facility] - 03/22/2023 1:15 PM EDT ----- ------- Name: Tamanna Aburto Age/Sex: 47/F : 1975 Unit#: [id number] Attend Dr: Keely Balderrama CNM Re03/07/23 Status: DEP REF Location: HO.LNP Disch: ----- ------- SPEC : [id number] RECD: 03/08/23 STATUS: CAROLE TOWNSEND NUM: [id number] COLLEEN: 03/07/23-1530 [facility] DR: Keely Balderrama [facility] ENTERED: 03/08/23-1302 SP TYPE: Pap Smr OTHR [...] 59, 66, 68) HPV testing performed by [facility], [place], [place]. See reference laboratory pion of the EMR for entire report. Clinical Information LMP: Mirena, no menses Previous PAP test: 07/01/21, WN Material Received ThinPrep-Cervical Copies To: Wil Palmer MD [address] [place] [address] [place] [place] [address] ----- ------- Signed (signature on file) ALIYAH Knox (ASC) 03/22/23 1315 ----- ------- END OF REPORT [facility] External Provider LAB CYT OLOGY ORDERABLES Final Result [facility] [address] [place] [address] [phone] * HIV 1/2 ANTIGEN/ANTIBODY,FOURTH GENERATION W/RFL [...] purpose. For additional information please refer to http://education.WigWag/faq/WJH883 (This link is being provided for informational/ educational purposes only.) The performance of this assay has not been clinically validated in patients less than 2 years old. 10/26/2021 11:5 2 AM EST Wil Thompson MD LAB BLOOD ORDERABL ES Final Result [facility] [address] from Last 3 Months or Most Recently Relevant to Health Maintenance Insurance C3 Care Teams Material Stockkeeper Yard Relationship Specialty Start Date End Date Wil Palmer MD [address] [place] [phone] PCP - General Internal Medicine 05/13/19
--- OUTSIDE RECORDS SUMMARY | 2025-08-26 14:29 | XMS_ITS | Encounter Summary ---
Author Organization [employer] Address [address] [facility] 7t [place] [address] Care Team Providers Care Utility Operator Name Role Phone Wil Palmer MD Primary Care Prov ider Encounter Details Date Type Department Care Team ([facility] st Contact Info) Description 06/14/2024 Orders Only [facility] CHC MED & PEDS [address] [place], [place] [phone] Teresita Alaniz MD [address] [place] [address] Social History Tobacco Use Types Packs/Day Years [...] with others, in a hotel, in a penitentiary, living outside on the street, on a [...] Upcoming Encounters Date Type Department Care Team ([facility] st Contact Info) Description 09/04/2025 2:30 PM EST Office Visit [facility] MED & PEDS [address] [place] [address] Wil Palmer MD [address] [place] [address] documented as of this encounter Visit Diagnoses Not on filedocumented in this encounter Additional Health Concerns Assessment Noted Time PHQ-9 Depression Total Score: 21 024 3:45 PM EST documented as of this encounter Care Teams Utility Operator Relationship Specialty Start Date End Date Wil Palmer MD [address] [place] [address] PCP - General Internal Medicine 05/13/19 documented as of this encounter
--- OUTSIDE RECORDS SUMMARY | 2025-08-26 14:29 | XMS_ITS | Clinical Summary ---
Author Organization [facility] Address [address] [place] [address] Phone Care Team Providers Care Rubber Mold Maker Name Role Phone Wil Palmer Primary Care [...] (10/14/2024): Both feet Type 2 diabetes mellitus without complication Overview (07/16/2025): 07/16/25 Regulatory IMO Update Medical History Medical History Date Comments Depression 03/29/2018 DX:Depression Type 2 diabetes mellitus wit hout complication 03/29/2018 DX:Type 2 diabetes mellitus without complication [...] Last Done Comments Breast Cancer Screening 1977 Colorectal Cancer Screening: Colonoscopy 1977 Diabetes: Annual Foot Exam 1987 Diabetes: Annual Retina Eye Exam 1987 Hepatitis B Vaccines (2 of 3 - 19+ 3-dose series) 07/08/2008 06/10/2008 Pneumococcal Vaccine: Pediatrics (0 to 5 Years) and At-Risk Patients (6 to 49 Years) (2 of 2 - PCV) 06/25/2019 06/25/2018 Hepatitis C Screening 09/19/2022 Social Influencers of Health Screening 09/19/2022 Diabetes: Annual Urine Albumin-Creatinine Ratio (uACR) 09/29/2022 DTaP,Tdap,and Td Vaccines (3 - Td or Tdap) 03/06/2024 03/06/2014, 01/24/2002 Depression Screening 10/16/2024 Diabetes: Blood Sugar Contro l Test (HGBA1C) 06/03/2025 12/04/2024, 11/27/2023, 02/15/2022 COVID-19 Vaccine (1 - 2024-2 6 season) 2025 Influenza Vaccine (#1) 2025 07/02/2013 Diabetes: Annual GFR (Glomerular Filtration Rate) 09/27/2025 09/27/2024, 04/08/2024, 04/04/2023 Hypertension/CHF/CAD Annual BMP Blood Test 09/27/2025 09/27/2024, 04/08/2024, 04/04/2023 Cervical Cancer Screening: P ap Smear 03/07/2026 03/07/2023 Cholesterol Screening (Lipid Panel) 07/26/2028 07/26/2023, 02/15/2022 RSV Immunization Adult Patients (1 - 1-dose 75+ series) 2052 HIV Screening Completed 10/26/2021 HIB Vaccines Aged [...] Procedure Name Priority Date/Time Associated Diagnosis Comments COMPREHENSIVE METABOLIC PANEL STAT 09/27/2024 9:48 PM EST HEMOGLOBIN A1C Routine 02/15/2022 LIPID PANEL Routine 02/15/2022 from Last 3 Months or Most Recently Relevant to Health Maintenance Results * Comprehensive metabolic panel (09/27/2024 9:48 PM EST) Sodium 140 133 - 145 mmol/L LAB CHEMISTRY METHOD 09/27/2024 10:51 PM [facility] Potassium 4.1 3.5 - 5.5 mmol/L LAB CHEMISTRY METHOD 09/27/2024 10:51 PM [facility] Chloride 110 96 - 110 mmol/L LAB CHEMISTRY METHOD 09/27/2024 10:51 PM [facility] CO2 25 21 - 32 mmol/L LAB CHEMISTRY METHOD 09/27/2024 10:51 PM [facility] Anion Gap 5 3 - 11 LAB CHEMISTRY METHOD 09/27/2024 10:51 PM [facility] Glucose 85 70 - 100 mg/dL LAB CHEMISTRY METHOD 09/27/2024 10:51 PM [facility] BUN 12 5 - 25 mg/dL LAB CHEMISTRY METHOD 09/27/2024 10:51 PM [facility] Creatinine 0.72 0.50 - 1.10 mg/dL LAB CHEMISTRY METHOD 09/27/2024 10:51 PM [facility] eGFR 104 >=60 mL/min/1. 73m2 LAB CHEMISTRY METHOD 09/27/2024 10:51 PM [facility] Comment:Calculation based on the Chronic Kidney Disease Epidemiology Collaboration (CKD-EPI) equation refit without adjustment for race. BUN/Creatinine Ratio 16.7 LAB CHEMISTRY METHOD 09/27/2024 10:51 PM [facility] Calcium 8.9 8.5 - 10.5 mg/dL LAB CHEMISTRY METHOD 09/27/2024 10:51 PM [facility] AST (SGOT) 29 10 - 42 unit/L LAB CHEMISTRY METHOD 09/27/2024 10:51 PM EST [facility] ALT (SGPT) 37 10 - 60 unit/L LAB CHEMISTRY METHOD 09/27/2024 10:51 PM [facility] Alkaline Phosphatase 87 42 - 121 unit/L LAB CHEMISTRY METHOD 09/27/2024 10:51 PM [facility] Total Protein 6.8 6.0 - 8.0 g/dL LAB CHEMISTRY METHOD 09/27/2024 10:51 PM [facility] Albumin 3.7 3.2 - 5.0 g/dL LAB CHEMISTRY METHOD 09/27/2024 10:51 PM [facility] Total Bilirubin 0.6 0.0 - 1.4 mg/dL LAB CHEMISTRY METHOD 09/27/2024 10:51 PM [facility] Blood Venous blood specimen / Unknown Venipuncture / Unknown 09/27/2024 9:48 PM EST 09/27/2024 10:05 PM EST Hua Kessler DO LAB BLOOD ORDERABLES Final Resu lt [facility] [address] [place] [address], * (ABNORMAL) Hemoglobin A1c (02/15/2022) Hemoglobin A1C [...] Maintenance Insurance MEDICAID - [place] Care Teams Rubber Mold Maker Relationship Specialty Start Date End Date Wil Palmer [address] [place], [place] PCP - General Internal Medicine 12/15/21
--- OUTSIDE RECORDS SUMMARY | 2025-08-26 14:29 | XMS_ITS | Clinical Summary ---
Author Organization [facility] Address [address] [facility] [address] [place] [phone] Phone Care Team Providers Care Bone Drier Name Role Phone Wil Palmer MD Primary Care Prov ider Allergies No known active allergies Medications ondansetron (ZOFRAN-ODT) 4 MG disintegrating tablet Take 1 tablet (4 mg total) by mouth every 8 (eight) hours as needed for nausea. 30 tablet 3 03/26/20 24 Active oxyCODONE-acetamin ophen (PERCOCET) 5-325 mg per tablet Take 1 tablet by mouth every 4 (four) hours as needed for pain (specific location in comments). Partial fill ok 30 tablet 03/26/20 Active Additional Information Patient not taking.Reported on 07/16/2024 docosahexaenoic acid/epa (FISH OIL ORAL) Take 1 tablet by mouth daily. Active Active Problems Problem Noted Date Diagnosed Date S/P panniculectomy 07/18/2024 Abdominal pannus 12/20/2023 Assessment & Plan (04/08/2024 4:55 PM EDT): Abdominal pannus on 04/08/2024 pt underwent PANNICULECTOMY with Dr. Lopez - Post op management as per surgery - Keflex ordered 03/26-04/[address] Lopez Intertrigo 12/20/2023 S/P bariatric surgery 12/20/2023 Bradycardia 08/09/2023 Assessment & Plan (04/08/2024 4:56 PM EDT): Pt with PMH of bradycardia states she wore a Holter monitor twice in the past with her agricultural engineering technologist at [facility]. Cardiology office called awaiting call back. She does not know who her agricultural engineering technologist is in that office. - EKG appears to be junctional HR 30-40 with a notched T wave - Pt states she is asymptomatic one episode of syncope 01/2023 following bariatric surgery when she was taking pain medicine. - Monitor on telemetry - Lab work pending - Recent echo 07/2023 awaiting call back from [place] agricultural engineering technologist. Assessment & Plan (08/09/2023 3:38 PM EDT): We will request for Holter monitor and follow-up. Denies any symptoms since last visit. EKG done on today's visit shows normal sinus rhythm Syncope and collapse 08/09/2023 Assessment & Plan (08/09/2023 3:40 PM EDT): Her syncopal events were in the setting of drug use. Denies any recent syncopal events and absence of drug use. We will follow-up after Holter monitor. Social History Tobacco Use Types Packs/Day Years Used Date Smoking Tobacco: Never Smokeless Tobacco: Never Tobacco Cessation:Counseling Given: Not Answered Alcohol Use Standard Drinks/Week Comments Never 0 [...] on file Sexual Orientation Not on file Last Filed Vital Signs Vital Sign Reading Time Taken Comments Blood Pressure 135/77 07/16/2024 3:12 PM EDT Pulse 39 07/16/2024 3:12 PM EDT Temperature 36.7 C (98.1 F) 04/09/2024 3:01 PM EDT Respiratory Rate 18 04/09/2024 3:01 PM EDT Oxygen Saturation 99% 04/09/2024 3:01 PM EDT Inhaled Oxygen Concentration - - Weight 70.2 kg (154 lb 12.8 oz) 07/16/2024 3:12 PM EDT Height 170.2 cm (5' 7 ) 07/16/2024 3:12 PM EDT Body Mass Index 24.25 07/16/2024 3:12 PM EDT Plan of Treatment Health Maintenance Due Date Last Done Comments DEPRESSION SCREENING 1989 HEPATITIS C SCREENING 1995 HIV ONE-TIME SCREENING (18-6 5 YEARS) 1995 PNEUMOCOCCAL VACCINES (0-49 years) (2 of 2 - PCV) 06/25/2019 06/25/2018 COLOGUARD 2022 COLONOSCOPY 2022 COLORECTAL CANCER SCREENING 2022 FIT TEST 2022 FOBT 2022 SIGMOIDOSCOPY 2022 VIRTUAL COLONOSCOPY 2022 Adult Td,Tdap Booster 03/06/2024 03/06/2014 MAMMOGRAM 12/19/2024 12/19/2022, 05/31/2019 INFLUENZA VACCINE (#1) 2025 COVID-19 VACCINE (1 - 2024-2 6 season) 2025 PAP SMEAR 03/07/2026 03/07/2023 LIPID PANEL 07/26/2028 07/26/2023 SMOKING STATUS SCREENING (On ce After 26 Yrs) Completed 04/08/2024 HEPATITIS A VACCINES Aged Out No long er eligible based on patient's age to complete this topic HIB VACCINES Aged Out No longer eligi ble based on patient's age to complete this topic IPV VACCINES Aged Out No longer eligi ble based on patient's age to complete this topic MENINGOCOCCAL VACCINES (ACWY) Aged Out No longer eligible based on patient's age to complete this topic MENINGOCOCCAL VACCINES (B) Aged Out N o longer eligible based on patient's age to complete this topic Medical Devices Implanted Type Area Research Leader Device Identifier Shelf Expiration Date Model / Serial / Lot Intrauterine Device Intrauterine Device Insurance C3 ACO Advance Directives For more information, please contact: [phone] (9AM - 5PM [facility] * Full Code (Latest Code Status on File) Date Activated Date Inactivated Comments 04/08/2024 4:49 PM Question Answer Comments Code Status Confirmed With: Patient * Full Code Date Activated Date Inactivated Comments 04/08/2024 6:04 AM 04/08/2024 4:49 PM Question Answer Comments Code Status Confirmed With: Patient Care Teams Bone Drier Relationship Specialty Start Date End Date Wil Palmer MD [address] [place] [phone] PCP - General Internal Medicine 12/12/23 Additional Source Comments The information contained in this document represents components of the legal health record. It is not the complete legal health record.[facility]
== END 2025-08-26 12:48 | disposition home or self-care (01) ==
LOC: HO.US 12:47
PROVIDERS: PCP Internal Medicine; Visit Provider Internal Medicine
DX: R74.8 Abnormal levels of other serum enzymes (principal)
CPT/HCPCS: 76700; 76981

== ENCOUNTER → 2025-08-26 12:51 | Outpatient (BNV) | payer MEDICAID, SELFPAY | PROVIDERS: PCP Internal Medicine; Visit Provider Radiology Diagnostic Ultrasound | DX: R94.5 Abnormal results of liver function studies (principal) | CPT/HCPCS: 76700 ==

== ENCOUNTER 2025-10-07 14:29 | Outpatient (AMB) | payer MEDICAID, SELFPAY ==
[2025-10-07 14:30] VITALS: BP 112/76; BMI 24.0
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
--- OUTSIDE RECORDS SUMMARY | 2025-10-07 15:45 | XMS_ITS | Clinical Summary ---
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 Cardiology office called awaiting call back. She does not know who her head bellhop captain is in that office. - EKG appears to be junctional HR 30-40 with a notched T wave - Pt states she is asymptomatic one episode of syncope 01/2023 following bariatric surgery when she was taking pain medicine. - Monitor on telemetry - Lab work pending - Recent echo 07/2023 awaiting call back from Reader head bellhop captain. Assessment & Plan (08/09/2023 3:38 PM EDT): [...] HIV ONE-TIME SCREENING (18-6 5 YEARS) 1995 COLOGUARD 2022 COLONOSCOPY 2022 COLORECTAL CANCER SCREENING 2022 FIT TEST 2022 FOBT 2022 SIGMOIDOSCOPY 2022 VIRTUAL COLONOSCOPY 2022 Adult Td,Tdap Booster 03/06/2024 03/06/2014 MAMMOGRAM 12/19/2024 12/19/2022, 05/31/2019 INFLUENZA VACCINE (#1) 2025 COVID-19 VACCINE (1 - 2024-2 6 season) 2025 PAP SMEAR 03/07/2026 03/07/2023 LIPID PANEL 07/26/2028 07/26/2023 PNEUMOCOCCAL VACCINES (0-49 years) Aged Out 06/25/2018 No longer eligible b ased on patient's age to complete this topic SMOKING STATUS SCREENING (On ce After 26 [...] this topic Medical Devices Implanted Type Area Transit Planner Device Identifier Shelf Expiration Date Model / Serial / Lot Intrauterine Device Intrauterine Device Insurance Advance Directives For more information, please contact: [phone] (9AM - 5PM [facility], Monday-Monday) * Full Code (Latest Code Status on File) Date Activated Date Inactivated Comments 04/08/2024 4:49 PM Question Answer Comments Code Status Confirmed With: Patient * Full Code Date Activated Date Inactivated Comments 04/08/2024 6:04 AM 04/08/2024 4:49 PM Question Answer Comments Code Status Confirmed With: Patient Care Teams Commercial Sewing Instructor Relationship Specialty Start Date End Date Wil Palmer MD [address] [place] [id number] PCP - General Internal Medicine 12/12/23 Additional Source Comments The information contained in this document represents components of the legal health record. It is not the complete legal health record.[facility]
--- OUTSIDE RECORDS SUMMARY | 2025-10-07 15:45 | XMS_ITS | Encounter Summary ---
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 Name Role Phone Wil Palmer MD Primary Care Prov ider Encounter Details Date Type Department Care Team (Late st Contact Info) Description 04/17/2024 Transcribe Orders [facility] Specimen Processing [address] [place] [id number] Wil Palmer MD [address] [place] [address] Social History Tobacco Use Types Packs/Day Years [...] on filedocumented in this encounter Care Teams Cut Off Machine Unloader Relationship Specialty Start Date End Date Wil Palmer MD [address] [place] [address] PCP - General Internal Medicine 12/12/23 documented as of this encounter Additional Source Comments The information contained in this document represents components of the legal health record. It is not the complete legal health record.[facility]
--- OUTSIDE RECORDS SUMMARY | 2025-10-07 15:45 | XMS_ITS | Clinical Summary ---
Author Organization [employer] Address [address] [facility] [address] [place] [address] Care Team Providers Care Furnace Operator Name Role Phone Wil Palmer MD Primary Care Prov ider Allergies No known active allergies Medications Lancets 33G misc Check blood sugar twice a day Active Levonorgestrel (Mirena, 52 MG,) 20 MCG/DAY intrauterine device Insert 52 mg into the vagina. 12/22/19 12 Active Blood Pressure Monitoring (Omron 3 Series BP Monitor) device 1 kit Once per day. 1 each 07/04/20 24 Active naproxen (Naprosyn) 500 MG tabletIndication s:Muscle spasm TAKE 1 TABLET BY MOUTH TWICE A DAY 30 tablet 03/21/20 25 Active doxepin (SINEquan) 25 MG capsule TAKE 1 CAPSULE BY MOUTH EVERY DAY AT BEDTIME 30 capsule 04/22/20 25 Active amLODIPine (Norvasc) 5 MG tabletIndication s:Essential hypertension Take 1 tablet (5 mg) by mouth Once per day. 90 tablet 3 09/04/20 25 026 Active hydrOXYzine HCl (Atarax) 25 MG tablet TAKE 1 TABLET BY MOUTH FOUR TIMES A DAY 90 tablet 09/30/20 25 Active hydrOXYzine HCl (Atarax) 25 MG tablet TAKE 1 TABLET BY MOUTH 4 TIMES DAILY. 90 tablet 04/14/20 25 025 Discontinued Active Problems Problem Noted [...] 02/19/2018 HTN (hypertension) 01/08/2018 Assessment & Plan (09/04/2025 2:51 PM EST): Controlled, keep low sodium diet and exercise as tolerated, continue amlodipine, keep blood pressure log, follow up in 3 months Assessment & Plan (2025 8:58 AM EDT): [...] Encounters Date Type Department Care Team Description 09/29/2025 Refill [facility] [address] [place] [address] Teresita Alaniz MD 09/04/2025 2:30 PM EST Office Visit [facility] [address] [place] [address] Wil Palmer MD Screening for colon cancer (Primary Dx); Essential hypertension; Primary hypertension 09/04/2025 Travel 08/27/2025 Results Follow-Up [facility] [address] [place] [address] Teresita Alaniz MD US Abdomen Comp w elastography 08/26/2025 Orders Only [facility] [address] [place] [address] Wil Palmer MD from Last 3 Months Immunizations Immunization Administration [...] Answer Date Recorded Patient Health Questionnaire-9 Score 0 09/04/2025 Patient Health Questionnaire-9 Score 0 09/04/2025 Last PHQ-9: Questionnaire Data Not on file 1 11/04/2024 Housing Stability Answer Date Recorded What is your housing situation today? I have jeff sarimento 09/04/[address] you li ve. Do you have problems with any of the following? None of the above 09/04/2025 Food Insecurity Answer Date Recorded Within the past 12 months, y ou worried that your food would run out before you got money to buy more: Never True 09/04/2025 Within the past 12 months,th e food you bought just didn't last and you didn't have enough money to get more: Never True Transportation Answer Date Recorded In the past 12 months, has l ack of transportation kept you from medical appts, meetings, work or from getting things needed for daily living? No 09/04/2025 Utilities Answer Date Recorded In the past 12 months, has t he electric, gas, oil or water company threatened to shut off services in your home? No 09/04/2025 Depression Answer Date Recorded Patient Health Questionnaire-2 Score 0 09/04/2025 Internet Access Answer Date Recorded Internet Access Q1 Yes 09/04/2025 Internet Access Q2 Not on file 09/04/2025 Comments Unknown Sex and Gender Information Value Date Recorded Sex Assigned at Female 08/15/2022 10:14 AM EDT Legal Sex Female 10:14 AM EDT Gender Identity Choose not to disclose 10:14 AM EDT Sexual Orientation Choose not to disclose 2021 10:14 AM EDT Last Filed Vital Signs Vital Sign Reading Time Taken Comments Blood Pressure 132/74 09/04/2025 2:37 PM EST Pulse 88 09/04/2025 2:37 PM EST Temperature 36.9 C (98.4 F) 09/04/2025 2:37 PM EST Respiratory Rate 20 09/04/2025 2:37 PM EST Oxygen Saturation 99% 2025 8:44 AM EDT Inhaled Oxygen Concentration - - Weight 68.9 kg (152 lb) 09/04/2025 2:37 PM EST Height 170.2 cm (5' 7 ) 09/04/2025 2:37 PM EST Body Mass Index 23.81 09/04/2025 2:37 PM EST Plan of Treatment Health Maintenance Due Date Last Done Comments CT Colonography 1975 Colonoscopy 1975 Colorectal Cancer Screening 1975 FIT DNA/Cologuard 1977 FIT 1975 FOBT 1975 Sigmoidoscopy 1975 Family Planning (PISQ) 1992 Hepatitis B Vaccines (2 of 3 - 19+ 3-dose series) 07/08/2008 06/10/2008 DTaP/Tdap/Td Vaccines (2 - Td or Tdap) 03/06/2024 03/06/2014, 01/24/2002 COVID-19 Vaccine ( - season) 2025 Influenza Vaccine (#1) 2025 07/02/2013 Tobacco Screening 01/23/2026 01/23/2025 Pap Smear 03/07/2026 03/07/2023 Alcohol/Substance Use Screening 09/04/2026 09/04/2025 Depression Screening 09/04/2026 09/04/2025, 09/04/20 25 Disability Screening 09/04/2026 09/04/2025 SDOH Screening 09/04/2026 09/04/2025 Mammogram 02/21/2027 02/21/2025, 0512/2023, 01/19/2023, Additional history exists Zoster Vaccines (1 of [...] Procedure Name Priority Date/Time Associated Diagnosis Comments US ABDOMEN COMPLETE WITH ELASTOGRAPHY Routine 08/26/2025 1:02 PM EST LIPID PANEL, STANDARD Routine 2025 9:04 AM [...] Recently Relevant to Health Maintenance Results * US Abdomen Comp w elastography (08/26/2025 1:02 PM EST) Anatomical Region Laterality Modality Abdomen Ultrasound 08/26/2025 1:02 PM EST Narrative 08/27/2025 11:49 AM EST [address] [address] Ultrasound Report Signed Patient: Tamanna Aburto MR#: [id number] 202 : 1975 Acct:[id number] Age/Sex: 50 / F ADM Date: 08/26/25 Loc: HO.US Attending Dr: Wil Thompson MD Ordering Physician: Wil Palmer MD Date of Service: 08/26/25 Procedure(s): US abdomen comp w elastography Accession Number(s): [id number] cc: Teresita Alaniz MD; Wil Palmer MD Reason for Exam: ELEVATED LIVER ENZYMES, EVAL FOR STEATOSIS EXAMINATION: US COMPLETE ABDOMEN WITH LIVER ELASTOGRAPHY CLINICAL INFORMATION: Elevated liver enzymes COMPARISON: None available. TECHNIQUE: Real-time imaging of the abdominal viscera. Noninvasive ultrasound liver fibrosis assessment is performed using Yandy ElastPQ point quantification shear wave elastography (pSWE) with a C5-2 MHz transducer. Multiple elastography samples are obtained. FINDINGS: Bowel gas limiting evaluation. PANCREAS: The visualized pancreatic head and body are normal in appearance. The remainder of the pancreas is obscured from visualization by the overlying bowel gas. ABDOMINAL AORTA: No aortic aneurysm is seen. Atherosclerosis of the mid and distal aorta. INFERIOR VENA CAVA: Visualized portions are normal. LIVER: The liver demonstrates normal size, contour. Echogenicity appears within normal limits. No focal lesion. Question mild dilatation of intrahepatic bile ducts. The right lobe measures 15.5 cm in length. The left lobe measures 7.3 cm in length. Portal flow is hepatopedal Shear wave liver elastography median stiffness is 1.44 m/s (reference: normal median stiffness is 1.3 m/s or less). IQR/median stiffness to assess sampling precision is 0.03 (reference: good quality data set is IQR/median stiffness of 0.15 or less). GALLBLADDER: The gallbladder is mildly distended. No evidence of stones, sludge, polyps, wall thickening or pericholecystic fluid. COMMON BILE DUCT: Normal in caliber measuring 0.3 cm in diameter. RIGHT KIDNEY: No hydronephrosis. No renal calculi or focal parenchymal lesions. Question mild increased parenchymal echogenicity, versus related to bowel gas. The kidney measures 10.3 cm in maximum dimension. LEFT KIDNEY: No hydronephrosis. Upper pole is not well visualized. No renal calculi or focal parenchymal lesions. The kidney measures 10.5 cm in maximum dimension. SPLEEN: Unremarkable. The spleen measures 8.6 cm in maximum dimension. FREE FLUID: None seen. US/US abdomen comp w elastography IMPRESSION: 1. Question mild dilatation of intrahepatic bile ducts. CBD is of normal caliber. Hepatic parenchyma echogenicity is within normal limits. 2. Liver elastography: Median stiffness 1.44 m/s *Liver Stiffness less than 1.7 m/s: In the absence of other known clinical signs, rules out compensated advanced chronic liver disease. REFERENCE: Society of Radiologists in Ultrasound Liver Stiffness Thresholds (2020): LIVER STIFFNESS THRESHOLDS: *Liver Stiffness equal or less than 1.3 m/s: High probability of being normal. *Liver Stiffness less than 1.7 m/s: In the absence of other known clinical signs, rules out compensated advanced chronic liver disease. *Liver Stiffness 1.7-2.1 m/s: Suggestive of compensated advanced chronic liver disease but need further test for confirmation. *Liver Stiffness over 2.1 m/s: Rules in compensated advanced chronic liver disease. *Liver Stiffness over 2.4 m/s: Suggestive of clinically significant portal hypertension. QUALITY OF DATA SET: *IQR/Median value equal or less than 0.15 implies a quality data set. *IQR/Median value over 0.15 implies a poor quality data set. SIGNIFICANT CHANGE FROM PRIOR EXAM: Significant change if liver stiffness measurement is 10% or greater from prior exam. OTHER CONSIDERATIONS: The stage of liver fibrosis may be overestimated in the setting of acute hepatitis, liver inflammation, elevated liver function tests, hepatic vascular congestion, obstructive cholestasis, non-fasting state, and infiltrative diseases such as amyloidosis and lymphoma. In some patients with NAFLD, the liver stiffness thresholds for compensated advanced chronic liver disease may be lower. In causes other than viral hepatitis and NAFLD, liver stiffness thresholds are not well established. Electronically signed by: Yaakov Jackson MD 08/27/2025 11:47 AM EST Dictated By: Yaakov Jackson MD Signed By: <Electronically signed by Yaakov Jackson MD in OV> 08/27/25 1147 DD/ 1302 TD/TT: 08/26/25 1329 Building Drafting Officer: JULIA Procedure Note Donotuseinterpreter, Image - 08/27/[address] [address] Ultrasound Report Signed Patient: Sudeep Aburto#: [id number] 202 : 1975Acct:[id number] Age/Sex: 50 / FADM Date: 08/26/25 Loc: HO.US Attending Dr: Wil Thompson MD Ordering Physician: Wil Palmer MD Date of Service: 08/26/25 Procedure(s): US abdomen comp w elastography Accession Number(s): [id number] cc: Teresita Alaniz MD; Wil Palmer MD Reason for Exam: ELEVATED LIVER ENZYMES, EVAL FOR STEATOSIS EXAMINATION: US COMPLETE ABDOMEN WITH LIVER ELASTOGRAPHY CLINICAL INFORMATION: Elevated liver enzymes COMPARISON: None available. TECHNIQUE: Real-time imaging of the abdominal viscera. Noninvasive ultrasound liver fibrosis assessment is performed using Yandy ElastPQ point quantification shear wave elastography (pSWE) with a C5-2 MHz transducer. Multiple elastography samples are obtained. FINDINGS: Bowel gas limiting evaluation. PANCREAS: The visualized pancreatic head and body are normal in appearance. The remainder of the pancreas is obscured from visualization by the overlying bowel gas. ABDOMINAL AORTA: No aortic aneurysm is seen. Atherosclerosis of the mid and distal aorta. INFERIOR VENA CAVA: Visualized portions are normal. LIVER: The liver demonstrates normal size, contour. Echogenicity appears within normal limits. No focal lesion. Question mild dilatation of intrahepatic bile ducts. The right lobe measures 15.5 cm in length. The left lobe measures 7.3 cm in length. Portal flow is hepatopedal Shear wave liver elastography median stiffness is 1.44 m/s (reference: normal median stiffness is 1.3 m/s or less). IQR/median stiffness to assess sampling precision is 0.03 (reference: good quality data set is IQR/median stiffness of 0.15 or less). GALLBLADDER: The gallbladder is mildly distended. No evidence of stones, sludge, polyps, wall thickening or pericholecystic fluid. COMMON BILE DUCT: Normal in caliber measuring 0.3 cm in diameter. RIGHT KIDNEY: No hydronephrosis. No renal calculi or focal parenchymal lesions. Question mild increased parenchymal echogenicity, versus related to bowel gas. The kidney measures 10.3 cm in maximum dimension. LEFT KIDNEY: No hydronephrosis. Upper pole is not well visualized. No renal calculi or focal parenchymal lesions. The kidney measures 10.5 cm in maximum dimension. SPLEEN: Unremarkable. The spleen measures 8.6 cm in maximum dimension. FREE FLUID: None seen. US/US abdomen comp w elastography IMPRESSION: 1. Question mild dilatation of intrahepatic bile ducts. CBD is of normal caliber. Hepatic parenchyma echogenicity is within normal limits. 2. Liver elastography: Median stiffness 1.44 m/s *Liver Stiffness less than 1.7 m/s: In the absence of other known clinical signs, rules out compensated advanced chronic liver disease. REFERENCE: Society of Radiologists in Ultrasound Liver Stiffness Thresholds (2020): LIVER STIFFNESS THRESHOLDS: *Liver Stiffness equal or less than 1.3 m/s: High probability of being normal. *Liver Stiffness less than 1.7 m/s: In the absence of other known clinical signs, rules out compensated advanced chronic liver disease. *Liver Stiffness 1.7-2.1 m/s: Suggestive of compensated advanced chronic liver disease but need further test for confirmation. *Liver Stiffness over 2.1 m/s: Rules in compensated advanced chronic liver disease. *Liver Stiffness over 2.4 m/s: Suggestive of clinically significant portal hypertension. QUALITY OF DATA SET: *IQR/Median value equal or less than 0.15 implies a quality data set. *IQR/Median value over 0.15 implies a poor quality data set. SIGNIFICANT CHANGE FROM PRIOR EXAM: Significant change if liver stiffness measurement is 10% or greater from prior exam. OTHER CONSIDERATIONS: The stage of liver fibrosis may be overestimated in the setting of acute hepatitis, liver inflammation, elevated liver function tests, hepatic vascular congestion, obstructive cholestasis, non-fasting state, and infiltrative diseases such as amyloidosis and lymphoma. In some patients with NAFLD, the liver stiffness thresholds for compensated advanced chronic liver disease may be lower. In causes other than viral hepatitis and NAFLD, liver stiffness thresholds are not well established. Electronically signed by: Yaakov Jackson MD 08/27/2025 11:47 AM EST Dictated By: Yaakov Jackson MD Signed By: <Electronically signed by Yaakov Jackson MD in OV> 08/27/25 1147 DD/ 1302 TD/TT: 08/26/25 1329 Building Drafting Officer: JULIA us Wil Thompson MD IM US PROCEDURES Final Result * Lipid Panel, Standard (2025 9:04 AM EDT) Triglycerides 49 <150 mg/dL [facility] Comment:Desirable Triglyceri de: less than 150 mg/dLBorderline High Triglyceride 150-199 mg/dLHigh Triglyceride: 200-499 mg/dLVery High Triglyceride: greater than or equal to 5OO mg/dL Cholesterol 113 <200 mg/dL [facility] Comment:Desirable Cholestero l: less than 200 mg/dLBorderline High Cholesterol: 200-239 mg/dLHigh Cholesterol: greater than 239 mg/dL LDL Cholesterol Calculated 60 <100 mg/dL [facility] Comment:Desirable LDL: less than 100 mg/dLNear Optimal/Above Optimal LDL: 110- 129 mg/dLBorderline High LDL: 130-159 mg/dLHigh LDL: 160-189 mg/dLVery High LDL: greater than or equal to 190 mg/dL HDL Cholesterol 44 >40 mg/dL [facility] Comment:Desirable HDL: great er than 40 mg/dL Note: This HDL assay may give artificially low results in patients with liver disease. Blood Venous blood specimen / Unknown 2025 9:04 AM EDT 2025 4:03 PM EDT Wil Thompson MD LAB BLOOD ORDERABL ES Final Result [facility] [address] [place] [address] [phone] * BI Mammogram Screening Tomosynthesis Bilateral (02/21/2025 2:35 PM EDT) Anatomical Region Laterality Modality Breast Bilateral Mammography 02/21/2025 2:35 PM EDT Narrative 03/01/2025 9:02 AM EDT [facility] [address] [place] [address] Mammography Report Signed Patient: Tamanna Aburto MR#: [id number] 202 : 1975 Acct:[id number] Age/Sex: 49 / F ADM Date: 02/21/25 Loc: HO.MAMMO Attending Dr: Teresita Alaniz MD Ordering Physician: Teresita Alaniz MD Results: 1 Negative Date of Service: 02/21/25 Follow Up: 1 Year From Orig ina Mammogram Procedure(s): MM tomosynthesis screening BI Accession Number(s): [id number] cc: Teresita Alaniz MD EXAMINATION: MM SCREENING [...] 03/01/25 0859 DD/ 1435 TD/TT: 02/21/25 1452 Building Drafting Officer: Procedure Note Donotuseinterpreter, Image - 03/03/2025 [place] [facility] [address] [place], [place] [address] Mammography Report Signed Patient: Sudeep Aburto#: [id number] 202 : 1975Acct:[id number] Age/Sex: 49 / FADM Date: 02/21/25 Loc: HO.MAMMO Attending Dr: Teresita Alaniz MD Ordering Physician: Teresita Alaniz MDResults: 1 Negative Date of Service: 02/21/25Follow Up: 1 Year From [facility] Mammogram Procedure(s): MM tomosynthesis screening BI Accession Number(s): [id number] cc: Teresita Alaniz MD EXAMINATION: MM SCREENING [...] 03/01/25 0859 DD/ 1435 TD/TT: 02/21/25 1452 Building Drafting Officer: Teresita Alaniz MD [facility] [place] PROCEDURES Edited Re sult - Final * Hepatitis C Viral RNA, Quantitative, Real-Time PCR (05/01/2023 12:14 PM EDT) Hepatitis C Viral Load <15 NOT DETECTED NOT DETECTED IU/mL [facility] HCV Log PCR <1.18 NOT DETECTED NOT DETECTED Log IU/mL [facility] Comment:This test was perfor med using Real-Time Polymerase ChainReaction.Reportable Range: 15 IU/mL to 100,000,000 IU/mL(1.18 Log IU/mL to 8.00 Log IU/mL).The analytical performance characteristics of thisassay have been determined by [employer].The modifications have not been cleared or approved bythe FDA. This assay has been validated pursuant to theCLIA regulations and is used for clinical purposes.For more information on this test, go to:http://Follicum.Pin digital/faq/DHC22s6(This link is being provided for informational/educational purposes only.)THIS TEST WAS PERFORMED AT:[facility] [place] [phone] MACDONALD MD Blood 05/01/2023 12:1 4 PM EDT 05/01/2023 2:45 PM EDT [facility] LAB BLOOD ORDERABLES Final Re sult [facility] [address] [place] [address] [phone] * HPV mRNA E6/E7 w/Reflex to HPV Genotypes 16, 18/45 (03/07/2023 3:30 PM EDT) HPV nRNA E6/E7 Not Detected Not Detected [facility] Comment:Methodology: Transcr iption-Mediated AmplificationThis assay detects E6/E7 viral messenger RNA (mRNA) from 14high-risk HPV types (16,18,31,33,35,39,45,51,52,56,58,59,66,68).Cervical sources are required for HPV testing.If a vaginal source from a patient who has had atotal hysterectomy with removal of cervix wassubmitted, please contact the testing laboratoryfor alternative testing options.For additional information, please refer tohttp://education.Pin digital/faq/WVW608b1(This link if provided for information/educational purposes only.)THIS TEST WAS PERFORMED AT:[facility] [place] [phone] MACDONALD MD HPV mRNA E6/E7 TNP [facility] HPV 16 RNA TNP [facility] HPV 18/45 RNA [facility] 03/07/2023 3:30 PM EDT 03/08/2023 11:25 AM EDT [facility] External Provider LAB CYT OLOGY ORDERABLES Final Result [facility] [address] [place] [address] [phone] * Pap Smear (03/07/2023 3:30 PM EDT) 03/07/2023 3:30 PM EDT 03/08/2023 11:25 AM EDT Narrative [facility] - 03/22/2023 1:15 PM EDT ----- ------- Name: Tamanna Aburto Age/Sex: 47/F : 1975 Unit#: [id number] Attend Dr: Keely Balderrama CNM Re03/07/23 Status: DEP REF Location: HO.LNP Disch: ----- ------- SPEC : [id number] RECD: 03/08/23-1124 STATUS: CAROLE T[place]NSEND NUM: [id number] COLLEEN: 03/07/23-[address]: Keely Balderrama CNM ENTERED: 03/08/23-1301 SP TYPE: Pap Smr OTHR DR: Wil [...] 59, 66, 68) HPV testing performed by [facility], [place], [place]. See reference laboratory pion of the EMR for entire report. Clinical Information LMP: Mirena, no menses Previous PAP test: 07/01/21, WNL Material Received ThinPrep-Cervical Copies To: Wil Palmer MD [address] [place] [address] Keely Balderrama [address] [place] [address] ----- ------- Signed (signature on file) ALIYAH Knox (ASCP) 03/22/23 1315 ----- ------- END OF REPORT [facility] External Provider LAB CYT OLOGY ORDERABLES Final Result [facility] [address] [place] [address] [phone] * HIV 1/2 ANTIGEN/ANTIBODY,FOURTH GENERATION W/RFL (10/26/2021 11:52 AM EST) HIV-1/2 ANTIGEN AND ANTIBODIES, 4TH GENERATION W/ REFLEX NON-REACT CECI NON-REACT CECI [facility] Comment: HIV-1 antigen and [...] purpose. For additional information please refer to http://education.Pin digital/faq/UNI978 (This link is being provided for informational/ educational purposes only.) The performance of this assay has not been clinically validated in patients less than 2 years old. 10/26/2021 11:5 2 AM EST us Wil Thompson MD LAB BLOOD ORDERABL ES Final Result Performing Organization Address City/State/[facility] Co de Phone Number [facility] Anywhere [address] from Last 3 Months or Most Recently Relevant to Health Maintenance Insurance [facility] C[facility] Care Teams Furnace Operator Relationship Specialty Start Date End Date ChanWil Segovia MD [address] [place] [id number] PCP - General Internal Medicine 05/13/19
--- OUTSIDE RECORDS SUMMARY | 2025-10-07 15:45 | XMS_ITS | Clinical Summary ---
Author Organization [facility] Address [address] [place] [address] Phone Care Team Providers Care Medical Researcher Name Role Phone Wil Palmer Primary Care [...] mmol/L LAB CHEMISTRY METHOD 09/27/2024 10:51 PM [facility] Potassium 4.1 3.5 - 5.5 mmol/L LAB CHEMISTRY METHOD 09/27/2024 10:51 PM [facility] Chloride 110 96 - 110 mmol/L LAB CHEMISTRY METHOD 09/27/2024 10:51 PM [facility] CO2 25 21 - 32 mmol/L LAB CHEMISTRY METHOD 09/27/2024 10:51 PM [facility] Anion Gap 5 3 - 11 LAB CHEMISTRY METHOD 09/27/2024 10:51 PM [facility] Glucose 85 70 - 100 mg/dL LAB CHEMISTRY METHOD 09/27/2024 10:51 PM [facility] BUN 12 5 - 25 mg/dL LAB CHEMISTRY METHOD 09/27/2024 10:51 PM [facility] Creatinine 0.72 0.50 - 1.10 mg/dL LAB CHEMISTRY METHOD 09/27/2024 10:51 PM [facility] eGFR 104 >=60 mL/min/1. 73m2 LAB CHEMISTRY METHOD 09/27/2024 10:51 PM [facility] Comment:Calculation based on the Chronic Kidney Disease Epidemiology Collaboration (CKD-EPI) equation refit without adjustment for race. BUN/Creatinine Ratio 16.7 LAB CHEMISTRY METHOD 09/27/2024 10:51 PM [facility] Calcium 8.9 8.5 - 10.5 mg/dL LAB CHEMISTRY METHOD 09/27/2024 10:51 PM [facility] AST (SGOT) 29 10 - 42 unit/L LAB CHEMISTRY METHOD 09/27/2024 10:51 PM [facility] ALT (SGPT) 37 10 - 60 unit/L LAB CHEMISTRY METHOD 09/27/2024 10:[address] [facility] Alkaline Phosphatase 87 42 - 121 unit/L LAB CHEMISTRY METHOD 09/27/2024 10:51 PM [facility] Total Protein 6.8 6.0 - 8.0 g/dL LAB CHEMISTRY METHOD 09/27/2024 10:[address] [facility] Albumin 3.7 3.2 - 5.0 g/dL LAB CHEMISTRY METHOD 09/27/2024 10:51 PM [facility] Total Bilirubin 0.6 0.0 - 1.4 mg/dL LAB CHEMISTRY METHOD 09/27/2024 10:51 PM [facility] Blood Venous blood specimen / Unknown Venipuncture / Unknown 09/27/2024 9:48 PM EST 09/27/2024 10:05 PM EST Hua Kessler DO LAB BLOOD ORDERABLES Final Resu lt [facility] [address] [place] [address], * (ABNORMAL) Hemoglobin A1c (02/15/2022) Hemoglobin A1C [...] Maintenance Insurance MEDICAID - [place] Care Teams Medical Researcher Relationship Specialty Start Date End Date Wil Palmer [address] [place], [place] PCP - General Internal Medicine 12/15/21
--- OUTSIDE RECORDS SUMMARY | 2025-10-07 15:45 | XMS_ITS | Encounter Summary ---
Author Organization [employer] Address [address] [facility] [address] [place] [address] Care Team Providers Care Communication Manager Name Role Phone Wil Palmer MD Primary Care Prov ider Encounter Details Date Type Department Care Team (Late st Contact Info) Description 06/14/2024 Orders Only [facility] [address] [place], [place] [phone] Teresita Alaniz MD [address] [place] [address] Social History Tobacco Use Types Packs/Day Years [...] with others, in a hotel, in a alf, living outside on the street, on a [...] documented as of this encounter Care Teams Communication Manager Relationship Specialty Start Date End Date Wil Palmer MD [address] [place] [id number] PCP - General Internal Medicine 05/13/19 documented as of this encounter
--- OUTSIDE RECORDS SUMMARY | 2025-10-07 15:45 | XMS_ITS | Encounter Summary ---
Author Organization [facility] Address [address] [facility] [address] [place] [id number] Phone Care Team Providers Care Commissioned Police Officer Name Role Phone Wil Palmer MD Primary Care Prov ider Encounter Details Date Type Department Care Team (Late st Contact Info) Description 04/08/2024 Procedure Pass OR Admitting Dept - Virtual Department [address] [place] [address] Social History Tobacco Use Types Packs/Day Years [...] on filedocumented in this encounter Care Teams Commissioned Police Officer Relationship Specialty Start Date End Date Wil Palmer MD [address] [place] [phone] PCP - General Internal Medicine 12/12/23 documented as of this encounter Additional Source Comments The information contained in this document represents components of the legal health record. It is not the complete legal health record.[facility]
== END 2025-10-07 15:36 | disposition home or self-care (01) ==
LOC: HO.HWSM 14:29
PROVIDERS: PCP Internal Medicine; Visit Provider Advanced Practice Midwife
DX: Z01.419 Encounter for gynecological examination (general) (routine) without abnormal findings (principal); Z12.39 Encounter for other screening for malignant neoplasm of breast; Z97.5 Presence of (intrauterine) contraceptive device; R35.0 Frequency of micturition
CPT/HCPCS: 99396; 99459

== ENCOUNTER → 2025-10-07 14:29 | Outpatient (BNVA) | payer MEDICAID, SELFPAY | PROVIDERS: PCP Internal Medicine; Visit Provider Advanced Practice Midwife | DX: Z01.419 Encounter for gynecological examination (general) (routine) without abnormal findings (principal); N32.81 Overactive bladder; N81.10 Cystocele, unspecified; R35.0 Frequency of micturition; L90.0 Lichen sclerosus et atrophicus; Z12.39 Encounter for other screening for malignant neoplasm of breast; Z97.5 Presence of (intrauterine) contraceptive device | CPT/HCPCS: 99396 ==